=== PATIENT | female | born 1950 | race Caucasian/White ===

== ENCOUNTER 2020-05-09 09:27 | Outpatient (REF) | payer MEDICAID, SELFPAY ==
--- NOTE | 2020-05-09 | US_ITS ---
EXAMINATION: ABDOMINAL ULTRASOUND COMPLETE CLINICAL INFORMATION: Right upper quadrant pain. COMPARISON: None TECHNIQUE: Real-time imaging of the abdominal viscera. FINDINGS: PANCREAS: Essentially obscured by bowel gas. Portion of the neck is visualized, appearing unremarkable. ABDOMINAL AORTA: The proximal, middle, and distal aortic segments are normal in caliber. INFERIOR VENA CAVA: Visualized portions are normal. LIVER: Diffuse increased hepatic echogenicity. No focal lesion or intrahepatic biliary duct dilatation. GALLBLADDER: Status post cholecystectomy. COMMON BILE DUCT: Normal in caliber measuring 0.5 cm in diameter. RIGHT KIDNEY: Technologist notes indicate kidney was difficult to visualize. There is question of prominence of the renal pyramids. No renal lesion or calculi seen. No hydronephrosis. The kidney measures 9.2 cm in maximum dimension. LEFT KIDNEY: Normal. No hydronephrosis. No renal calculi or focal parenchymal lesions. The kidney measures 10.3 cm in maximum dimension. SPLEEN: Normal. The spleen measures 8.4 cm in maximum dimension. FREE FLUID: None. IMPRESSION: 1. Status post cholecystectomy. No evidence of biliary duct dilatation. 2. There is generalized increase in hepatic echotexture, consistent with fatty infiltration or hepatocellular disease. Please correlate clinically. No focal hepatic mass or intrahepatic biliary duct dilatation is seen. 3. Pancreas obscured by bowel gas. 4. Limited visualization of the right kidney. Question of right renal pyramid prominence. Suggest follow-up ultrasound for reassessment.
== END 2020-05-09 09:28 | disposition home or self-care (01) ==
LOC: HO.US 09:27
PROVIDERS: PCP Internal Medicine; Visit Provider Internal Medicine
DX: R10.11 Right upper quadrant pain (principal)
CPT/HCPCS: 76700

== ENCOUNTER 2020-06-01 16:23 | Outpatient (REF) | payer MEDICAID, SELFPAY ==
--- NOTE | 2020-06-01 16:28 | US_ITS ---
EXAMINATION: US RETROPERITONEAL LIMITED (RENAL ONLY) CLINICAL INFORMATION: Abnormal findings on diagnostic imaging of other abdominal regions including retroperitoneum. COMPARISON: Ultrasound abdomen complete 05/09/2020. TECHNIQUE: Real-time imaging of the kidneys. FINDINGS: RIGHT KIDNEY: 10.0 x 5.2 x 5.0 cm (SAG x AP x TRV). The kidney is normal in size, contour, and echogenicity. Renal cortical thickness is normal. No calculi or focal parenchymal lesions. No hydronephrosis. There are prominent pyramids noted. LEFT KIDNEY: 10.6 x 5.5 x 5.0 cm (SAG x AP x TRV). The kidney is normal in size, contour, and echogenicity. Renal cortical thickness is normal. No calculi or focal parenchymal lesions. No hydronephrosis. There are prominent pyramids noted. US/US renal BI IMPRESSION: There are bilateral renal prominent pyramids. No echogenic stones, cyst or hydronephrosis seen.
== END 2020-06-01 16:24 | disposition home or self-care (01) ==
LOC: HO.US 16:23
PROVIDERS: Visit Provider Internal Medicine
DX: R93.5 Abnormal findings on diagnostic imaging of other abdominal regions, including retroperitoneum (principal)
CPT/HCPCS: 76775

== ENCOUNTER 2020-06-30 13:18 | Outpatient (REF) | payer MEDICAID, SELFPAY | END 2020-06-30 13:19 | disposition home or self-care (01) | LOC: HO.HAP 13:18 | PROVIDERS: PCP Internal Medicine; Referring Provider Internal Medicine; Visit Provider Internal Medicine | DX: Z46.1 Encounter for fitting and adjustment of hearing aid (principal) | CPT/HCPCS: V5266 ==

== ENCOUNTER 2020-09-01 10:41 | Outpatient (REF) | payer MEDICAID, SELFPAY ==
--- NOTE | 2020-09-01 11:49 | MHC.AU.P13 ---
Adult Audiological Evaluation Date of Visit: 09/01/20 Rock Contractor Used: Family member assisted with interpretation Reason for Appointment: History of hearing loss. She arrives today to determine if there has been a change in hearing. Previous Hearing Test Results: At [facility] on 03/08/2019- Overall severe sensorineural hearing loss bilaterally Ear History: Recent Ear Pain: None Reported Recent Ear Infections: None Reported Bothersome Tinnitus/Ringing/Noises in Ears: Both Ears History of occupational noise exposure?: No History: No Hearing Instrument History- Right Ear: Consular Officer: BlackArrow Model: [id number] Serial Number: [id number] Battery Size: 312 Repair Warranty: 06/14/2022 Loss and Damage Warranty: 06/14/2022 Dispensed By: [facility] Date of Fittin03/19/2019 Hearing Instrument History- Left Ear: Consular Officer: BlackArrow Model: [id number] [id number] Serial Number: [id number] Battery Size: 312 Warranty: 06/14/2022 Loss and Damage Warranty: 06/24/2022 Dispensed By: [facility] Date of Fittin03/19/2019 Otoscopy: Right Ear: Unremarkable Left Ear: Unremarkable Tympanometry: Tympanometry performed due to: To assess integrity of the middle ear system Right Ear: Normal Middle Ear System (Type A) Left Ear: Normal Middle Ear System (Type A) Hearing Evaluation: Transducer(s) Used: Insert Earphones Method: Conventional Audiometry Stimuli Used: Pure Tones Right Ear: Description of Hearing: Severe sensorineural hearing loss Left Ear: Description of Hearing: Severe sensorineural hearing loss Speech Recognition Threshold (SRT): Method Used: Recorded Lists Stimuli Used: Right Ear: 85 dBHL Left Ear: 85 dBHL Word Discrimination: Method: Recorded Lists Word Lists Used: Lista Bisil?bica (Martiniquais) Right Ear: 52% at 100 dBHL Left Ear: 40% at 100 dBHL Comparison: Compared to most recent evaluation: Slight decrease in low frequencies Recommendations: Audiological re-evaluation in one year. Hearing aid maintenance was performed. Patient reported the volume control buttons were not changing the volume on the other ear like they usually do. The software confirmed the volume control is set so both instruments should be going up and down together. Patient also requested help with her phone, as she tried to pair them herself and it did not seem to be working correctly. In the Bluetooth menu, the left hearing aid was showing as paired in two places, and the right side once. Deleted all three pairings and re-paired the right hearing aid. Deleted pairings from the sapna and re-paired. In the sapna, patient was able to change the volume of both instruments simultaneously. She tried the button on the hearing aids after, and the volume control was now working on both instruments. It is possible the erroneous Bluetooth pairings were interfering with the instruments' abilities to communicate with each other, as typically only the right hearing aid is paired to the phone. Hearing aids were updated with today's test results. Patient felt it was too loud- lowered overall gain by 3 steps. Hearing aid follow-up as needed. Diagnosis: Primary Diagnosis: H90.3 Bilateral Sensorineural Hearing Loss Services Performed: Comprehensive Audiological Evaluation (CPT 33423), Tympanometry (CPT 32545) Signature: Provider: Valeria Flores, CCC-A
== END 2020-09-01 10:42 | disposition home or self-care (01) ==
LOC: HO.SH 10:41
PROVIDERS: Visit Provider Internal Medicine
DX: H90.3 Sensorineural hearing loss, bilateral (principal)
CPT/HCPCS: 92557; 92567

== ENCOUNTER 2020-09-18 08:20 | Outpatient (REF) | payer MEDICAID, SELFPAY ==
--- NOTE | ~2020-09-18 | US_ITS ---
EXAMINATION: US ABDOMEN COMPLETE CLINICAL INFORMATION: Abnormal findings on diagnostic imaging of other abdominal regions, including retroperitoneum. Fatty liver. Abdominal pain. COMPARISON: Bilateral renal ultrasound dated 06/01/2020. Ultrasound abdomen complete dated 05/09/2020. TECHNIQUE: Real-time imaging of the abdominal viscera. FINDINGS: PANCREAS: Head and body the pancreas are normal. The tail is not well visualized due to bowel gas. ABDOMINAL AORTA: The proximal, mid, and distal segments are normal in caliber. INFERIOR VENA CAVA: Visualized portions are normal. LIVER: Liver echotexture is increased. The liver is normal in size. The liver contour is normal. No focal hepatic lesion. There is no intrahepatic biliary duct dilatation seen. GALLBLADDER: Surgically absent. COMMON BILE DUCT: Normal in caliber measuring 0.6 cm in diameter. RIGHT KIDNEY: Normal. No hydronephrosis. No renal calculi or focal parenchymal lesions. The kidney measures 10.2 cm in maximum dimension. LEFT KIDNEY: Normal. No hydronephrosis. No renal calculi or focal parenchymal lesions. The kidney measures 10.4 cm in maximum dimension. SPLEEN: Normal. The spleen measures 8.8 cm in maximum dimension. FREE FLUID: None. US/US abdomen complete IMPRESSION: Echogenic liver probably representing fatty infiltration. Limited visualization of the pancreas.
[2020-09-18 11:59] LABS: Alanine Aminotransferase 15 U/L (0-31); Albumin Level 4.3 g/dL (3.5-5.0); Alkaline Phosphatase 92 U/L (39-117); Aspartate Amino Transferase 18 U/L (5-31); Bilirubin Direct 0.3 mg/dL (0.0-0.5); Bilirubin Total 0.8 mg/dL (0.0-1.0); Total Protein 7.3 g/dL (6.5-8.0)
[2020-09-18 12:00] LABS: TSH reflex Free T4 3.98 uIU/mL (0.32-4.0)
== END 2020-09-18 08:21 | disposition home or self-care (01) ==
LOC: HO.US 08:20
PROVIDERS: PCP Internal Medicine; Visit Provider Internal Medicine
DX: R10.9 Unspecified abdominal pain (principal); R10.13 Epigastric pain; R93.5 Abnormal findings on diagnostic imaging of other abdominal regions, including retroperitoneum; E03.9 Hypothyroidism, unspecified; K76.0 Fatty (change of) liver, not elsewhere classified
CPT/HCPCS: 36415; 76700; 80076; 84443

== ENCOUNTER 2020-09-29 14:28 | Outpatient (REF) | payer MEDICAID, SELFPAY | END 2020-09-29 14:29 | disposition home or self-care (01) | LOC: HO.HAP 14:28 | PROVIDERS: Visit Provider Internal Medicine | DX: Z46.1 Encounter for fitting and adjustment of hearing aid (principal) | CPT/HCPCS: V5266 ==

== ENCOUNTER 2020-11-06 13:24 | Outpatient (REF) | payer MEDICAID, SELFPAY ==
--- NOTE | ~2020-11-06 | MM_ITS ---
EXAMINATION: MM SCREENING DIGITAL BREAST TOMOSYNTHESIS, BILATERAL CLINICAL INFORMATION: Screening. Asymptomatic. No known family history breast cancer. The lifetime risk of breast cancer based on the Tyrer-Cuzick Model is 3%. COMPARISON: Mammography: 12/04/2018 (new baseline). TECHNIQUE: Digital breast tomosynthesis is performed in both the craniocaudal and mediolateral oblique views along with computer-aided detection (CAD). Synthesized 2D images are generated from the tomosynthesis. FINDINGS: There are scattered areas of fibroglandular density (ACR BI-RADS breast composition Category b). There are no significant masses, abnormal calcifications, or other abnormalities. The skin contours are smooth. No significant changes. MM/MM tomosynthesis screening BI IMPRESSION: No mammographic evidence of malignancy. ASSESSMENT: BI-RADS 1: Negative RECOMMENDATION: Routine annual mammography screening. This patient's information was entered into a reminder system with a target due date for their next mammogram.
== END 2020-11-06 13:25 | disposition home or self-care (01) ==
LOC: HO.MAMMO 13:24
PROVIDERS: PCP Internal Medicine; Visit Provider Internal Medicine
DX: Z12.31 Encounter for screening mammogram for malignant neoplasm of breast (principal)
CPT/HCPCS: 77063; 77067

== ENCOUNTER 2021-01-09 09:41 | Outpatient (REF) | payer MEDICAID, SELFPAY | END 2021-01-09 09:42 | disposition home or self-care (01) | LOC: HO.HAP 09:41 | PROVIDERS: Visit Provider Internal Medicine | DX: Z46.1 Encounter for fitting and adjustment of hearing aid (principal); H91.90 Unspecified hearing loss, unspecified ear | CPT/HCPCS: V5266 ==

== ENCOUNTER 2021-02-14 15:55 | Outpatient (REF) | payer MEDICAID, SELFPAY | END 2021-02-14 15:56 | disposition home or self-care (01) | LOC: HO.HAP 15:55 | PROVIDERS: Visit Provider Internal Medicine | DX: Z46.1 Encounter for fitting and adjustment of hearing aid (principal); H90.3 Sensorineural hearing loss, bilateral | CPT/HCPCS: 92593 ==

== ENCOUNTER 2021-03-03 07:26 | Outpatient (REF) | payer MEDICAID, SELFPAY ==
[2021-03-03 12:07] LABS: Alanine Aminotransferase 13 U/L (0-31); Albumin Level 4.1 g/dL (3.5-5.0); Alkaline Phosphatase 98 U/L (39-117); Anion Gap 13 (12-20); Aspartate Amino Transferase 19 U/L (5-31); Bilirubin Total 0.8 mg/dL (0.0-1.0); Blood Urea Nitrogen 12 mg/dL (9-16); Calcium 9.5 mg/dL (8.4-10.2); Carbon Dioxide 26 mmol/L (22-29); Chloride 107 mmol/L (96-108); Cholesterol 188 mg/dL; Estimated Glomerular Filt Rate > 60; Glucose Fasting 85 mg/dL (60-99); HDL Cholesterol 44 mg/dL; LDL Cholesterol Calculated 108 mg/dl; Magnesium 2.3 mg/dL (1.6-2.6); Potassium 4.5 mmol/L (3.3-5.1); Sodium 141 mmol/L (135-145); Total Protein 7.2 g/dL (6.5-8.0); Triglycerides 181 mg/dL
[2021-03-03 12:28] LABS: TSH reflex Free T4 4.63 uIU/mL (0.32-4.0)
[2021-03-03 13:24] LABS: Free T4 (Free Thyroxine) 0.92 ng/dL (0.71-1.85)
== END 2021-03-03 07:27 | disposition home or self-care (01) ==
LOC: HO.HMGCLDS 07:26
PROVIDERS: PCP Internal Medicine; Visit Provider Internal Medicine
DX: R10.13 Epigastric pain (principal); K76.0 Fatty (change of) liver, not elsewhere classified; E66.09 Other obesity due to excess calories; E03.9 Hypothyroidism, unspecified
CPT/HCPCS: 36415; 80053; 80061; 83735; 84439; 84443

== ENCOUNTER 2021-04-13 15:15 | Outpatient (REF) | payer MEDICAID, SELFPAY | END 2021-04-13 15:16 | disposition home or self-care (01) | LOC: HO.HAP 15:15 | PROVIDERS: Visit Provider Internal Medicine | DX: Z46.1 Encounter for fitting and adjustment of hearing aid (principal); H90.3 Sensorineural hearing loss, bilateral | CPT/HCPCS: V5266 ==

== ENCOUNTER → 2021-05-18 13:42 | Outpatient (REF) | payer MEDICAID, SELFPAY ==
--- NOTE | 2021-05-18 13:47 | ECG_ITS ---
Hook-up date: 2021-05-18 13:56:00 Duration: 47:59:00 Test Indications: PVC'S, CHEST PAIN Medications: [id number] QRS complexes 1757 Ventricular ectopics which represent <1 % of total QRS comp. 124 Supraventricular ectopics which represent <1 % of total QRS comp. * Paced QRS complexs which represent % of total QRS comp. VENTRICULAR ECTOPY 1757 Isolated 140 Bigeminal Cycles 0 Couplets 0 Runs 0 Beats in Runs * Beats LONGEST at * BPM at :: -- * Beats FASTEST at * BPM at :: -- SUPRAVENTRICULAR ECTOPY 104 Isolated 3 Couplets 2 Runs 14 Beats in Runs 9 Beats LONGEST at 132 BPM at 16:45:24 2021-05-19 9 Beats FASTEST at 132 BPM at 16:45:24 2021-05-19 HEART RATES 46 MIN at 05:44:08 2021-05-19 68 AVG 105 MAX at 16:16:01 2021-05-18 LONGEST RR 2.6080 secs at 05:44:03 2021-05-19 S-T LEVELS Channel 1 - 128 mm at 13:56:00 2021-05-18 - 128 mm at 13:56:00 2021-05-18 Channel 2 - 128 mm at 13:56:00 2021-05-18 - 128 mm at 13:56:00 2021-05-18 Channel 3 - 128 mm at 03:31:51 -- - 128 mm at 03:31:51 Basic rhythm Normal sinus rhythm No long pause or profound bradycardia Occasional Premature ventricular complexes , total burden < 1% Rare Premature atrial complexes Patient did not report any symptoms in the diary Referred By: Torsten Garza Overread By: AKHIL HUNTER MD
== END ==
LOC: HO.CARD 13:42
PROVIDERS: Visit Provider Internal Medicine
DX: I49.3 Ventricular premature depolarization (principal); R07.89 Other chest pain
CPT/HCPCS: 93226

== ENCOUNTER → 2021-06-12 15:16 | Outpatient (REF) | payer MEDICAID, SELFPAY ==
--- NOTE | 2021-06-12 15:19 | CA_ITS ---
Transthoracic Echocardiogram Patient (Last, First, Middle): Jocelyn Champion Del S Gender: Female Date of : 1950 Age: 70 Procedure Date: 06/12/2021 Procedure Type: Transthoracic Echocardiogram Location: OP Height: 157.48 cm Weight: 76.66 kg BSA: 1.78 m2 Heart Rate: bpm BP: 120 / 78 mmHg Data Systems Analyst: EVETTE Referring MD: Torsten Garza MD Symptoms: R07.89 - Other chest pain Study Quality: Fair ECG Rhythm: Sinus Conclusions: - The left ventricular systolic function is normal. The visually estimated ejection fraction is between 60-65%. - No obvious valvular pathology seen on this study. Findings Left Ventricle Normal left ventricular cavity size. There is normal left ventricular wall thickness. The left ventricular systolic function is normal. The visually estimated ejection fraction is between 60-65%. There is no evidence of regional wall motion abnormalities. Diastolic function is normal for age. Right Ventricle Normal right ventricular cavity size and systolic function. Atria Both atria are normal in size. Aortic Valve The aortic valve was not well visualized. The aortic valve structure and function is likely normal. There is no aortic valve stenosis. There is no aortic valve regurgitation. Mitral Valve The mitral valve appears normal. There is trace mitral valve regurgitation. There is no mitral valve stenosis. Pulmonic Valve The pulmonic valve was not well visualized. Tricuspid Valve Normal tricuspid valve structure. There is trace tricuspid valve regurgitation. The pulmonary artery systolic pressure is normal. Great Vessels The aortic annulus is normal in size. Venous The inferior vena cava is normal in size and collapses greater than 50% with inspiration. Pericardium/Pleural There is no evidence of pericardial effusion. Prior Study Comparison No prior study available for comparison. Recommendations, Care & Conclusions No obvious valvular pathology seen on this study. Measurements 2D Linear Measurements IVSd: 0.97 0.6-0.9/0.6-1.0 cm LVIDd: 4.22 3.9-5.3/4.2-5.9 cm LVIDd Index: 2.37 2.4-3.2/2.2-3.1 cm/m2 LVIDs: 3.01 2.0-3.6 cm LVPWd: 0.92 0.7-1.1 cm Ao Root: 2.80 2.1-3.5 cm LA Diam: 3.30 2.7-3.8/3.0-4.0 cm LAIDs Index: 1.85 1.5-2.3 cm/m2 LV Mass: 159.30 67-162/88-224 g LV Mass Index: 89.49 43-95/49-115 g/m2 LVOT Diam: 1.90 3.0+(-)1.3 cm 2D Systolic Function EF 4C: 73.10 >55% Mitral Valve MV Pk E: 0.71 MV PK A: 0.47 MV Decel Time: 136.00 E/A: 1.50 E'Lateral: 6.96 E'Medial: 4.68 E/E' Med: 15.20 E/E' Lat: 10.20 PHT: 40.00 MVA PHT: 5.50 Decel [place]: 5.22 Aortic Valve AoV Pk Sadiq: 1.05 AoV Pk Grad: 4.00 LVOT LVOT Pk Sadiq: 1.10 LVOT Mn Sadiq: 0.70 LVOT VTI: 0.23 LVOT Pk Grad: 5.00 LVOT Mn Grad: 2.00 LVOT Diam: 1.90 LVOT Area: 2.84 Diastolic Function MV Pk E: 0.71 MV Pk A: 0.47 E/A: 1.50 E'Medial: 4.68 E/E' Med: 15.20 E' Laterial: 6.96 E/E' Lat: 10.20 Right Ventricle TAPSE (mm): 2.19 Tricuspid Valve TR Pk Sadiq: 2.23 TR Pk Grad: 20.00 RA Press: 3.00 RVSP: 23.00 Great Vessels Aorta Ao Root-2D: 2.80 2.0-3.7 cm Ao Arch: 2.80 Updated in Other Vendor System with Status of Final Ravin Sanz MD electronically signed on 06/12/2021 4:33:38 PM with status of Final
== END ==
LOC: HO.CARD 15:16
PROVIDERS: Visit Provider Internal Medicine
DX: R07.89 Other chest pain (principal); I49.3 Ventricular premature depolarization
CPT/HCPCS: 93306

== ENCOUNTER 2021-07-10 14:01 | Outpatient (REF) | payer MEDICAID, SELFPAY | END 2021-07-10 14:02 | disposition home or self-care (01) | LOC: HO.HAP 14:01 | PROVIDERS: Visit Provider Internal Medicine | DX: Z46.1 Encounter for fitting and adjustment of hearing aid (principal); H90.3 Sensorineural hearing loss, bilateral | CPT/HCPCS: V5266 ==

== ENCOUNTER → 2021-09-04 11:08 | Outpatient (BNVA) | payer MEDICAID, SELFPAY | PROVIDERS: PCP Internal Medicine; Referring Provider Internal Medicine; Visit Provider Nurse Practitioner | DX: K21.9 Gastro-esophageal reflux disease without esophagitis (principal) | CPT/HCPCS: 99212 ==

== ENCOUNTER 2021-10-12 09:14 | Outpatient (REF) | payer MEDICAID, SELFPAY | END 2021-10-12 09:15 | disposition home or self-care (01) | LOC: HO.HAP 09:14 | PROVIDERS: Visit Provider Internal Medicine | DX: Z46.1 Encounter for fitting and adjustment of hearing aid (principal); H90.3 Sensorineural hearing loss, bilateral | CPT/HCPCS: 92593 ==

== ENCOUNTER → 2021-10-16 15:10 | Outpatient (BNVA) | payer MEDICAID, SELFPAY | PROVIDERS: PCP Internal Medicine; Referring Provider Internal Medicine; Visit Provider Nurse Practitioner | DX: K21.9 Gastro-esophageal reflux disease without esophagitis (principal); Z79.899 Other long term (current) drug therapy | CPT/HCPCS: 99212 ==

== ENCOUNTER 2021-10-20 07:37 | Outpatient (REF) | payer MEDICAID, SELFPAY ==
[2021-10-20 11:10] LABS: MANUAL DIFF FLAG NO
[2021-10-20 11:21] LABS: Basophils Absolute Auto 0.1 X10*3/uL (0.0-0.2); Basophils Percent Auto 0.6 % (0-2); Eosinophils Absolute Auto 0.1 X10*3/uL (0.0-0.4); Eosinophils Percent Auto 0.9 % (0-4); Hematocrit 41.8 % (37.0-47.0); Hemoglobin 13.2 g/dl (12.0-16.0); Imm Gran Abs Auto 0.03 X10*3/uL (0.00-0.03); Imm Gran Pct Auto 0.4 % (0.0-0.4); Lymphocytes Absolute Auto 2.1 X10*3/uL (1.2-4.9); Lymphocytes Percent Auto 26.7 % (20-40); Mean Corpuscular HGB Conc 31.6 g/dl (31.0-35.0); Mean Corpuscular Hemoglobin 29.7 pg (27.0-33.0); Mean Corpuscular Volume 93.9 fL (80.0-98.0); Mean Platelet Volume 11.3 fL (9.4-12.3); Monocytes Absolute Auto 0.4 X10*3/uL (0.1-1.2); Monocytes Percent Auto 5.6 % (2-11); Neutrophils Absolute Auto 5.1 x10*3/uL (2.0-8.3); Neutrophils Percent Auto 65.8 % (45-73); Platelet Count 259 X10*3/uL (160-400); Red Blood Count 4.45 X10*6/uL (4.20-5.50); Red Cell Distribution Width 12.8 % (11.0-16.0); White Blood Count 7.8 X10*3/uL (4.8-10.8)
[2021-10-20 11:45] LABS: Alanine Aminotransferase 14 U/L (0-31); Albumin Level 4.1 g/dL (3.5-5.0); Alkaline Phosphatase 107 U/L (39-117); Anion Gap 12 (12-20); Aspartate Amino Transferase 17 U/L (5-31); Bilirubin Total 0.8 mg/dL (0.0-1.0); Blood Urea Nitrogen 14 mg/dL (9-16); Calcium 9.4 mg/dL (8.4-10.2); Carbon Dioxide 27 mmol/L (22-29); Chloride 106 mmol/L (96-108); Cholesterol 194 mg/dL; Estimated Glomerular Filt Rate > 60; Glucose Fasting 91 mg/dL (60-99); HDL Cholesterol 49 mg/dL; LDL Cholesterol Calculated 122 mg/dl; Potassium 4.3 mmol/L (3.3-5.1); Sodium 141 mmol/L (135-145); Total Protein 7.1 g/dL (6.5-8.0); Triglycerides 118 mg/dL
[2021-10-20 11:55] LABS: TSH reflex Free T4 4.13 uIU/mL (0.32-4.0)
[2021-10-20 13:18] LABS: Free T4 (Free Thyroxine) 1.04 ng/dL (0.71-1.85)
== END 2021-10-20 07:38 | disposition home or self-care (01) ==
LOC: HO.HMGCLDS 07:37
PROVIDERS: PCP Internal Medicine; Visit Provider Internal Medicine
DX: Z00.01 Encounter for general adult medical examination with abnormal findings (principal); E03.9 Hypothyroidism, unspecified; R10.13 Epigastric pain; K76.0 Fatty (change of) liver, not elsewhere classified
CPT/HCPCS: 36415; 80053; 80061; 84439; 84443; 85025

== ENCOUNTER 2021-10-31 15:19 | Outpatient (REF) | payer MEDICAID, SELFPAY | END 2021-10-31 15:20 | disposition home or self-care (01) | LOC: HO.HAP 15:19 | PROVIDERS: Visit Provider Internal Medicine | DX: Z46.1 Encounter for fitting and adjustment of hearing aid (principal); H90.3 Sensorineural hearing loss, bilateral | CPT/HCPCS: 92593 ==

== ENCOUNTER 2021-11-09 08:12 | Outpatient (REF) | payer MEDICAID, SELFPAY ==
--- NOTE | ~2021-11-09 | MM_ITS ---
EXAMINATION: MM SCREENING DIGITAL BREAST TOMOSYNTHESIS, BILATERAL CLINICAL INFORMATION: Screening. Asymptomatic. The lifetime risk of breast cancer based on the Tyrer-Cuzick Model is 4%. COMPARISON: Mammography: 11/06/2020, 12/04/2018 TECHNIQUE: Digital breast tomosynthesis is performed in both the craniocaudal and mediolateral oblique views along with computer-aided detection (CAD). Synthesized 2D images are generated from the tomosynthesis. Additional left MLO view is provided. FINDINGS: There are scattered areas of fibroglandular density (ACR BI-RADS breast composition Category b). There are no significant masses, abnormal calcifications, or other abnormalities. Parenchymal pattern is similar to prior studies. The axilla and skin contours are unremarkable. MM/MM tomosynthesis screening BI IMPRESSION: No mammographic evidence of malignancy. ASSESSMENT: BI-RADS 1: Negative RECOMMENDATION: Routine annual mammography screening. This patient's information was entered into a reminder system with a target due date for their next mammogram.
== END 2021-11-09 08:13 | disposition home or self-care (01) ==
LOC: HO.MAMMO 08:12
PROVIDERS: PCP Internal Medicine; Visit Provider Internal Medicine
DX: Z12.31 Encounter for screening mammogram for malignant neoplasm of breast (principal)
CPT/HCPCS: 77063; 77067

== ENCOUNTER 2022-01-14 10:17 | Outpatient (REF) | payer MEDICAID, SELFPAY | END 2022-01-14 10:18 | disposition home or self-care (01) | LOC: HO.HAP 10:17 | PROVIDERS: Visit Provider Internal Medicine | DX: Z46.1 Encounter for fitting and adjustment of hearing aid (principal); H90.3 Sensorineural hearing loss, bilateral | CPT/HCPCS: V5266 ==

== ENCOUNTER 2022-04-16 14:57 | Outpatient (REF) | payer MEDICAID, SELFPAY | END 2022-04-16 14:58 | disposition home or self-care (01) | LOC: HO.HAP 14:57 | PROVIDERS: Visit Provider Internal Medicine | DX: Z46.1 Encounter for fitting and adjustment of hearing aid (principal); H90.3 Sensorineural hearing loss, bilateral | CPT/HCPCS: V5266 ==

== ENCOUNTER → 2022-04-18 14:38 | Outpatient (BNVA) | payer MEDICAID, SELFPAY | PROVIDERS: PCP Internal Medicine; Visit Provider Nurse Practitioner | DX: K21.9 Gastro-esophageal reflux disease without esophagitis (principal) | CPT/HCPCS: 99212 ==

== ENCOUNTER 2022-06-07 13:50 | Outpatient (REF) | payer MEDICAID, SELFPAY | END 2022-06-07 13:51 | disposition home or self-care (01) | LOC: HO.HAP 13:50 | PROVIDERS: Visit Provider Internal Medicine | DX: Z13.89 Encounter for screening for other disorder (principal) ==

== ENCOUNTER 2022-07-19 15:05 | Outpatient (REF) | payer MEDICAID, SELFPAY | END 2022-07-19 15:06 | disposition home or self-care (01) | LOC: HO.HAP 15:05 | PROVIDERS: Visit Provider Internal Medicine | DX: Z46.1 Encounter for fitting and adjustment of hearing aid (principal); H90.3 Sensorineural hearing loss, bilateral | CPT/HCPCS: V5266 ==

== ENCOUNTER 2022-10-17 11:03 | Outpatient (REF) | payer MEDICAID, SELFPAY | END 2022-10-17 11:04 | disposition home or self-care (01) | LOC: HO.HAP 11:03 | PROVIDERS: Visit Provider Internal Medicine | DX: Z46.1 Encounter for fitting and adjustment of hearing aid (principal); H90.3 Sensorineural hearing loss, bilateral | CPT/HCPCS: V5266 ==

== ENCOUNTER 2022-10-25 14:57 | Outpatient (REF) | payer MEDICAID, SELFPAY ==
--- NOTE | ~2022-10-25 | XR_ITS ---
EXAMINATION: XR LUMBOSACRAL SPINE CLINICAL INFORMATION: Radiculopathy. COMPARISON: None available. TECHNIQUE: Three views of the lumbosacral spine. 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 There is normal lumbar lordosis with minimal scoliosis. The vertebral heights and alignment are normal. Loss of disc space at L6-S1, L5-L6 and L1-L2 disc heights. There is mild ventral spondylosis L1-L2, L4-L5 and L5-L6 vertebral heights. No aggressive lytic or sclerotic process seen. There is a moderate bridging osteophyte at the L5-L6 disc level. The SI joints are symmetrical and normal. The soft tissues are normal. 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 Degenerative disc heights as described above with ventral spondylosis. There is minimal scoliosis but no acute fracture or dislocation seen.
[2022-10-25 17:18] LABS: TSH reflex Free T4 3.51 uIU/mL (0.32-4.0)
== END 2022-10-25 14:58 | disposition home or self-care (01) ==
LOC: HO.HMGCX 14:57
PROVIDERS: PCP Internal Medicine; Visit Provider Internal Medicine
DX: Z00.01 Encounter for general adult medical examination with abnormal findings (principal); E03.9 Hypothyroidism, unspecified; M54.16 Radiculopathy, lumbar region
CPT/HCPCS: 36415; 72100; 84443

== ENCOUNTER 2022-11-12 15:48 | Outpatient (REF) | payer MEDICAID, SELFPAY | END 2022-11-12 15:49 | disposition home or self-care (01) | LOC: HO.HAP 15:48 | PROVIDERS: Visit Provider Internal Medicine | DX: Z13.89 Encounter for screening for other disorder (principal) ==

== ENCOUNTER 2022-11-27 14:37 | Outpatient (REF) | payer MEDICAID, SELFPAY ==
--- NOTE | ~2022-11-27 | MM_ITS ---
EXAMINATION: MM SCREENING DIGITAL BREAST TOMOSYNTHESIS, BILATERAL CLINICAL INFORMATION: Screening. Asymptomatic. The lifetime risk of breast cancer based on the Tyrer-Cuzick Model is 2.2%. COMPARISON: Mammography: November 09, 2021 and studies dating back to December 04, 2018 TECHNIQUE: Digital breast tomosynthesis is performed in both the craniocaudal and mediolateral oblique views along with computer-aided detection (CAD). Synthesized 2D images are generated from the tomosynthesis. FINDINGS: There are scattered areas of fibroglandular density (ACR BI-RADS breast composition Category b). There are no significant masses, abnormal calcifications, or other abnormalities. MM/MM tomosynthesis screening BI IMPRESSION: No significant changes from prior exam. ASSESSMENT: BI-RADS 1: Negative RECOMMENDATION: Routine annual mammography screening. This patient's information was entered into a reminder system with a target due date for their next mammogram.
== END 2022-11-27 14:38 | disposition home or self-care (01) ==
LOC: HO.MAMMO 14:37
PROVIDERS: PCP Internal Medicine; Visit Provider Internal Medicine
DX: Z12.31 Encounter for screening mammogram for malignant neoplasm of breast (principal)
CPT/HCPCS: 77063; 77067

== ENCOUNTER 2022-12-13 13:14 | Outpatient (REF) | payer MEDICAID, SELFPAY | END 2022-12-13 13:15 | disposition home or self-care (01) | LOC: HO.HAP 13:14 | PROVIDERS: Visit Provider Internal Medicine | DX: Z46.1 Encounter for fitting and adjustment of hearing aid (principal); H90.3 Sensorineural hearing loss, bilateral | CPT/HCPCS: 92700; V5264 ==

== ENCOUNTER 2023-01-15 17:00 | Outpatient (RCR) | payer MEDICAID, SELFPAY ==
--- NOTE | 2022-12-18 13:40 | MHC.PT.EP ---
[facility] [place] Office [place] Office [place] Office [address] [phone] F: [phone] F: [phone] F: [phone] F: [phone] Physical Therapy Plan of Care Date of Evaluation: Date of Surgery: N/A Diagnosis: radiculopathy, lumbar region Assessment: Pt is a pleasant 72yo F who presents to PT with low back pain. Pt presents to PT with current impairments in pain, decreased lumbar ROM, posterior chain tightness, decreased hip/glute strength and impaired gait. She is TTP with reproduction of symptoms to L glutes and piriformis. She is limited functionally by prolonged standing, prolonged walking, and sleeping. She is a good candidate for skilled PT in order to address current impairments to facilitate return to PLOF. She is recommended to be seen 2x/week however pt and her son report 1x/week is better therefore she will be seen 1x/week for 4 weeks and will be reassessed at that time. Frequency and Duration: The patient will be seen 2x/week for 4 weeks Short Term Goals: Pt will be I with HEP to promote self management of symptoms Pt will improve L hamstring length to WFL compared to R Detention Goals: Pt will improve L glute med strength to at least 4+/5 to assist with standing and walking Pt will tolerate standing and walking > 30 min with minimal to no discomfort Treatment Plan: Modalities to reduce pain, spasms and effusion. Manual therapy to restore motion and function. Therapeutic exercise to improve strength and flexibility. Neuromuscular re-education for posture and balance. Therapeutic activities to return to functional activities of daily living. Electronically signed by: Swapna Renee, PT, DPT Please sign and return to therapist. Thank you for your referral.
--- NOTE | 2023-02-13 15:36 | MHC.PT.DC ---
[facility] [place] Office [place] Office [place] Office [address] Jailyn Parham [address] [phone] F: [phone] F: [phone] F: [phone] F: [phone] Physical Therapy Discharge Report Diagnosis: radiculopathy, lumbar region Date of Surgery: N/A Date of Evaluation: 12/17/22 Date of Discharge: 02/13/23 Treatments to Date: 3 Cancellations to Date: No Shows to Date: Discharge Status: Patient Elected to Stop Discharge Summary: Pt was seen for PT from 12/17/22-01/15/23. Her last attended appointment was 01/15/23. At last attended appointment she reported she is leaving for a month, and therefore she will be D/C from PT. She was provided with a HEP at her last attended appointment. Pt is being D/C from skilled PT at this time. Electronically signed by: Swapna Renee, PT, DPT Please sign and return to therapist. Thank you for your referral.
== END 2023-02-13 15:36 | disposition home or self-care (01) ==
LOC: HO.PT 17:00
PROVIDERS: PCP Internal Medicine; Visit Provider Internal Medicine
DX: M54.16 Radiculopathy, lumbar region (principal)
CPT/HCPCS: 97110; 97161

== ENCOUNTER 2023-01-17 15:56 | Outpatient (REF) | payer MEDICAID, SELFPAY | END 2023-01-17 15:57 | disposition home or self-care (01) | LOC: HO.HAP 15:56 | PROVIDERS: Visit Provider Internal Medicine | DX: Z46.1 Encounter for fitting and adjustment of hearing aid (principal); H90.3 Sensorineural hearing loss, bilateral | CPT/HCPCS: V5266 ==

== ENCOUNTER 2023-04-21 14:45 | Outpatient (REF) | payer MEDICAID, SELFPAY | END 2023-04-21 14:46 | disposition home or self-care (01) | LOC: HO.HAP 14:45 | PROVIDERS: Visit Provider Internal Medicine | DX: Z46.1 Encounter for fitting and adjustment of hearing aid (principal); H90.3 Sensorineural hearing loss, bilateral | CPT/HCPCS: V5266 ==

== ENCOUNTER 2023-07-02 10:26 | Outpatient (AMB) | payer MEDICAID, SELFPAY ==
[2023-07-02 10:29] VITALS: BP 120/72; PULSE 80; O2SAT 97; BMI 30.6
--- NOTE | 2023-07-02 10:29 | MHC.PC.OV ---
Vital Signs 07/02/23 10:29 Height 5 ft 2 in Weight 167 lb 8 oz BMI 30.6 BP 120/72 Blood Pressure Location Rt brachial Position Sitting Pulse 80 Pulse Source Pulse Oximeter Pulse Oximetry (%) 97 Oxygen Delivery Method Room Air Intake Visit Reasons: Discuss mole concerns Allergies No Known Allergies [No Known Allergies*] Allergy (Verified 07/02/23 10:31) Medication List - Last Reconciled 07/02/23 by Torsten Garza MD famotidine (Pepcid) 40 mg PO BEDTIME levothyroxine 25 mcg PO DAILY 90 days omeprazole 20 mg PO DAILY 30 days Tobacco use date assessed: 07/02/23 Fall risk assessment: No Falls in past year Last assessed Fall Risk: 07/02/23 Dental Screening Dental Screen Date: 07/02/23 Did you have a dental visit in the last 12 months?: Yes Did you have a dental problem in the last 6 months where you did not have access to dental care?: No Was dental information given to patient?: Patient has dentist HPI Discuss mole concerns HPI Details Patient is a 72-year-old female who was last seen early this year came in today to talk about changing mole on her face She would like to have a referral to Dermatology which I placed for her Patient is also on thyroid medication for hypothyroidism She is due for labs, patient have appointment for physical exam in October I have ordered fasting lab for the patient we will review the reports when she comes in. She is also having recurrent cold sores for that she is requesting a local cream, currently patient is using her daughter's cream. BMI is elevated at 30.6 patient is trying to lose weight. [facility]LY [facility] Medical History Abnormal abdominal ultrasound Difficulty hearing Dyspepsia Fatty liver Hypothyroidism Surgical History H/O colonoscopy H/O esophagogastroduodenoscopy History of laryngoscopy Hx of cholecystectomy Family History Father Myocardial infarction Mother Emphysema, unspecified Son No problems noted. Daughter No problems noted. Social History Housing: House Patient Tobacco Use Status: Never used Tobacco e-Cigarette/Vaping Use: Never Used Second Hand Smoke Exposure: No service: No Current occupational status: retired Cognitive needs: No Hearing needs: No Vision needs: Yes Questionnaire PHQ-9 Over the last 2 weeks, how often have you been bothered by any of the following problems? 1. Little interest or pleasure in doing things: not at all 2. Feeling down, depressed, or hopeless: not at all 3. Trouble falling or staying asleep, or sleeping too much: not at all 4. Feeling tired or having little energy: not at all 5. Poor appetite or overeating: not at all 6. Feeling bad about yourself - or that you are a failure or have let yourself or your family down: not at all 7. Trouble concentrating on things, such as reading the newspaper or watching television: not at all 8. Moving or speaking so slowly that other people could have noticed. Or the opposite - being so fidgety or restless that you have been moving around a lot more than usual: not at all 9. Thoughts that you would be better off or of hurting yourself in some way: not at all Total score: 0 Depression Screening Interpretation: Negative Depression Screening Done: Yes 08308 - PHQ-9 Billing: Yes Source: Developed by Drs. Alfred Goldberg, Michelle Garcia, Noe Nowak and colleagues, with an educational perfecto from [employer]. Thrive Questionnaire Date Thrive assessed: 07/02/23 I am a: Patient What is your living situation today?: I have a steady place to live Within the past 12 months, did the food you bought not last and you didn't have the money to get more?: Sometimes True Within the past 12 months, did you worry whether your food would run out before you got money to buy more?: Sometimes True Do you have trouble paying for medicines?: No Do you have trouble getting transportation to medical appointments?: No Do you have trouble paying your heating and electricity bill?: Yes Do you have trouble taking care of your child, family member or friend?: No Do you have trouble with day-to-day activities such as bathing, preparing meals, shopping, managing finances, etc.?: No Are you currently unemployed and looking for a job?: No Are you interested in more education?: No Please select the resources that you would like help with: None Currently or been in a relationship where the following occur: no concerns reported KEYSHA-7 AMB Questionnaire KEYSHA-7 Date KEYSHA - 7 assessed: 07/02/23 Feeling nervous, anxious, or on edge: 0 = Not at all Not being able to stop or control worryin = Not at all Worrying too much about different things: 0 = Not at all Trouble relaxin = Not at all Being so restless that it is hard to sit still: 0 = Not at all Becoming easily annoyed or irritable: 0 = Not at all Feeling afraid as if something awful might happen: 0 = Not at all Total KEYSHA-7 score (0-4 normal; 5-9 mild; 10-14 moderate; 15-21 severe): 0 Source: Developed by Drs. Alfred Goldberg, Michelle Garcia, Noe Nowak and colleagues, with an educational perfecto from [employer]. KEYSHA-7 Assessment Billing KEYSHA-7 Assessment Tool: KEYSHA-7 Assessment 47532 Review of Systems Const Denies chills and Denies fever(s) ENT Denies epistaxis and Denies nasal discharge Card Denies chest pain Resp Denies chest congestion, Denies cough and Denies hemoptysis GI Denies diarrhea and Denies nausea Skin/Breast Denies rash Neuro Reports no additional complaints Psych Reports no additional complaints Endo Reports no additional complaints Physical exam (Primary Care) Vital Signs: Last Vital Signs Pulse 80 07/02/23 10:29 BP 120/72 07/02/23 10:29 Pulse Ox 97 07/02/23 10:29 Oxygen Delivery Method Room Air 07/02/23 10:29 BMI result Body Mass Index 30.6 Tobacco/Smoking Status: Tobacco use Status Tobacco use date assessed 07/02/23 07/02/23 10:34 Patient Tobacco Use Status Never used Tobacco 07/02/23 10:31 e-Cigarette/Vaping Use Never Used 07/02/23 10:34 PHQ-9: PHQ-9 Score PHQ-9: Total score 0 07/02/23 10:50 Depression Screening Interpretation: Negative Thrive Assessment: Date of Thrive Assessment Date Thrive assessed 07/02/23 07/02/23 10:56 Currently or been in a relationship where the following occur: no concerns reported Const General: cooperative, comfortable and no acute distress Orientation/consciousness: patient oriented x3 HENOK Head: Yes normocephalic Head images: 1. Dark skin growth Eyes General: appearance normal, both eyes and all related structures Neck Neck: Yes supple Resp Effort & Inspection: normal respiratory effort, no cough and no stridor Cardio Rhythm: regular rhythm Heart sounds: S1 normal heart sound present and S2 normal heart sound present Skin General skin exam: turgor normal Neuro General: patient oriented x3, tone normal and moves all extremities Extrem Right lower extremity: no edema Left lower extremity: no edema Assessment and Plan Assessment & Plan (1) Change in mole: Code(s): D22.9 - Melanocytic nevi, unspecified (2) Obesity due to excess calories: Code(s): E66.09 - Other obesity due to excess calories Qualifiers: Body mass index: BMI 30.0-30.9 Obesity classification: adult class 1 (BMI 30 - 34.9) Serious obesity comorbidity presence: without serious comorbidity Qualified Code(s): E66.09 - Other obesity due to excess calories; Z68.30 - Body mass index [BMI] 30.0-30.9, adult (3) Hypothyroidism: Code(s): E03.9 - Hypothyroidism, unspecified Qualifiers: Hypothyroidism type: unspecified Qualified Code(s): E03.9 - Hypothyroidism, unspecified (4) Fatty liver: Code(s): K76.0 - Fatty (change of) liver, not elsewhere classified (5) Dyspepsia: Code(s): R10.13 - Epigastric pain (6) 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 She is also having recurrent cold sores for that she is requesting a local cream, currently patient is using her daughter's cream. BMI is elevated at 30.6 patient is trying to lose weight. History of fatty liver and dyspepsia managed through Gastroenterology Orders: Orders Comprehensive [place]. Panel Fast Today D22.9 - Melanocytic nevi, unspecified, E03.9 - Hypothyroidism, unspecified, E66.09 - Other obesity due to excess calories, K76.0 - Fatty (change of) liver, not elsewhere classified, R10.13 - Epigastric pain Complete Blood Count Auto Diff Today D22.9 - Melanocytic nevi, unspecified, E03.9 - Hypothyroidism, unspecified, E66.09 - Other obesity due to excess calories, K76.0 - Fatty (change of) liver, not elsewhere classified, R10.13 - Epigastric pain Lipid Panel Today D22.9 - Melanocytic nevi, unspecified, E03.9 - Hypothyroidism, unspecified, E66.09 - Other obesity due to excess calories, K76.0 - Fatty (change of) liver, not elsewhere classified, R10.13 - Epigastric pain TSH reflex Free T4 Today D22.9 - Melanocytic nevi, unspecified, E03.9 - Hypothyroidism, unspecified, E66.09 - Other obesity due to excess calories, K76.0 - Fatty (change of) liver, not elsewhere classified, R10.13 - Epigastric pain Referrals Dermatology Referral Z12.83 - Encounter for screening for malignant neoplasm of skin Medications: New acyclovir 5% 1 appl topical TID PRN 5 grams 2RF Cold sore 30 days Discontinued amitriptyline Discontinued Reason: Patient Completed Course 25 mg PO BEDTIME 30 days 30 tabs 0RF Coding Level of Care Code Est Pt Level 3 (77000) Diagnoses Change in mole D22.9 Class 1 obesity due to excess calories without serious comorbidity with body mass index (BMI) of 30.0 to 30.9 in adult E66.09; Z68.30 Body mass index: BMI 30.0-30.9 Obesity classification: adult class 1 (BMI 30 - 34.9) Serious obesity comorbidity presence: without serious comorbidity Hypothyroidism, unspecified type E03.9 Hypothyroidism type: unspecified Fatty liver K76.0 Dyspepsia R10.13 Recurrent cold sores B00.1 Additional Codes KEYSHA-7 Assessment Billing - KEYSHA-7 Assessment Tool: KEYSHA-7 Assessment 24458 ([id number])
== END 2023-07-02 13:21 | disposition home or self-care (01) ==
LOC: HO.HMGC 10:26
PROVIDERS: PCP Internal Medicine; Visit Provider Internal Medicine
DX: D22.9 Melanocytic nevi, unspecified (principal); E66.09 Other obesity due to excess calories; Z68.30 Body mass index [BMI] 30.0-30.9, adult; E03.9 Hypothyroidism, unspecified; K76.0 Fatty (change of) liver, not elsewhere classified; R10.13 Epigastric pain; B00.1 Herpesviral vesicular dermatitis
CPT/HCPCS: 99213

== ENCOUNTER 2023-07-22 12:48 | Outpatient (REF) | payer MEDICAID, SELFPAY | END 2023-07-22 12:49 | disposition home or self-care (01) | LOC: HO.HAP 12:48 | PROVIDERS: Visit Provider Internal Medicine | DX: Z46.1 Encounter for fitting and adjustment of hearing aid (principal); H90.3 Sensorineural hearing loss, bilateral | CPT/HCPCS: V5266 ==

== ENCOUNTER 2023-10-20 12:17 | Outpatient (REF) | payer MEDICAID, SELFPAY | END 2023-10-20 12:18 | disposition home or self-care (01) | LOC: HO.HAP 12:17 | PROVIDERS: Visit Provider Internal Medicine | DX: Z46.1 Encounter for fitting and adjustment of hearing aid (principal); H90.3 Sensorineural hearing loss, bilateral | CPT/HCPCS: V5266 ==

== ENCOUNTER 2023-11-05 14:09 | Outpatient (AMB) | payer MEDICAID, SELFPAY ==
[2023-11-05 14:18] VITALS: BP 124/70; PULSE 73; O2SAT 96
--- NOTE | 2023-11-05 14:18 | MHC.PC.OV ---
Vital Signs 11/05/23 14:18 Height 5 ft 2 in Weight 164 lb 2 oz BMI 30.0 BP 124/70 Blood Pressure Location Rt brachial Position Sitting Pulse 73 Pulse Source Pulse Oximeter Pulse Oximetry (%) 96 Oxygen Delivery Method Room Air Intake Visit Reasons: PE Allergies No Known Allergies [No Known Allergies*] Allergy (Verified 11/05/23 14:20) Medication List - Last Reconciled 11/05/23 by Torsten Garza MD acyclovir 5% 1 appl topical TID PRN 30 days famotidine (Pepcid) 40 mg PO BEDTIME levothyroxine 25 mcg PO DAILY 90 days omeprazole 20 mg PO DAILY 30 days Tobacco use date assessed: 11/05/23 Fall risk assessment: No Falls in past year Last assessed Fall Risk: 11/05/23 Dental Screening Dental Screen Date: 07/02/23 HPI PE HPI Details Patient is 73-year-old female came in today for her physical exam Colonoscopy is up-to-date Only medication she is taking from PCP office is levothyroxine 25 mcg and is due for TSH level Her daughter is very concerned that patient is snoring very loudly and feel tired during the day she is concerned about sleep apnea I have ordered sleep study for the patient She also is having epigastric pain off and on, patient have chronic GERD and she has stopped taking her omeprazole I have told her to restart the medication I will book her appointment with gastroenterology as well Mammogram is up-to-date BMI is elevated need to lose weight PFSH Medical History Difficulty hearing Abnormal abdominal ultrasound Hypothyroidism Fatty liver Dyspepsia Surgical History H/O colonoscopy H/O esophagogastroduodenoscopy History of laryngoscopy Hx of cholecystectomy Family History Father Myocardial infarction Mother Emphysema, unspecified Son No problems noted. Daughter No problems noted. Social History Housing: House Patient Tobacco Use Status: Never used Tobacco e-Cigarette/Vaping Use: Never Used Second Hand Smoke Exposure: No service: No Current occupational status: retired Cognitive needs: No Hearing needs: No Vision needs: Yes Questionnaire PHQ-9 Over the last 2 weeks, how often have you been bothered by any of the following problems? 25071 - PHQ-9 Billing: Patient declined-do not bill Source: Developed by Drs. Alfred Goldberg, Michelle Garcia, Noe Nowak and colleagues, with an educational perfecto from [employer]. Thrive Questionnaire Date Thrive assessed: 11/05/23 I am a: Parent/Caregiver What is your living situation today?: I choose not to answer this question Within the past 12 months, did the food you bought not last and you didn't have the money to get more?: I choose not to answer this question Within the past 12 months, did you worry whether your food would run out before you got money to buy more?: I choose not to answer this question Do you have trouble paying for medicines?: I choose not to answer this question Do you have trouble getting transportation to medical appointments?: I choose not to answer this question Do you have trouble paying your heating and electricity bill?: I choose not to answer this question Do you have trouble taking care of your child, family member or friend?: I choose not to answer this question Do you have trouble with day-to-day activities such as bathing, preparing meals, shopping, managing finances, etc.?: I choose not to answer this question Are you currently unemployed and looking for a job?: I choose not to answer this question Are you interested in more education?: I choose not to answer this question Please select the resources that you would like help with: None Currently or been in a relationship where the following occur: no concerns reported and I choose not to answer this question THRIVE Score: 0 KEYSHA-7 AMB Questionnaire KEYSHA-7 Date KYESHA - 7 assessed: 11/05/23 Source: Developed by Drs. Alfred Goldberg, Michelle Garcia, Noe Nowak and colleagues, with an educational perfecto from [employer]. KEYSHA-7 Assessment Billing KESYHA-7 Assessment Tool: pt declined-do not bill Review of Systems Const Denies chills, Denies fever(s) and Denies headache(s) Eyes Denies blurry vision ENT Denies headache(s), Denies nasal discharge, Denies nasal obstruction, Denies odynophagia and Denies sinus pain Card Denies chest pain at rest and Denies chest pain with activity Resp Denies cough and Denies hemoptysis GI Denies diarrhea, Denies odynophagia, Denies vomiting and Denies hematemesis Reports as per HPI Musc Denies abnormal gait Skin/Breast Reports as per HPI Neuro Denies Neuro-related abnormal movements, Denies Abnormal speech present, Denies abnormal gait, Denies headache(s) and Denies Sensory deficit (Neuro) Psych Denies mood swings and Denies paranoia Endo Reports as per HPI Chente/Lymph Reports as per HPI Aller/Immun Reports as per HPI Physical exam (Primary Care) Vital Signs: Last Vital Signs Pulse 73 11/05/23 14:18 BP 124/70 11/05/23 14:18 Pulse Ox 96 11/05/23 14:18 Oxygen Delivery Method Room Air 11/05/23 14:18 Tobacco/Smoking Status: Tobacco use Status Tobacco use date assessed 11/05/23 11/05/23 14:21 Patient Tobacco Use Status Never used Tobacco 11/05/23 14:21 e-Cigarette/Vaping Use Never Used 11/05/23 14:21 Thrive Assessment: Date of Thrive Assessment Date Thrive assessed 11/05/23 11/05/23 14:41 Currently or been in a relationship where the following occur: no concerns reported and I choose not to answer this question Const General: cooperative, comfortable and no acute distress Orientation/consciousness: patient oriented x3 HENMT Head: Yes normocephalic and Yes atraumatic Eyes General: appearance normal, both eyes and all related structures Pupils: Equal, round and reactive pupils present EOM: EOMs intact bilaterally Neck Neck: Yes supple and No lymphadenopathy Thyroid: Thyroid normal Lymphatic: no lymphadenopathy noted Chest Breast/axilla palpation: normal palpation of the breasts Resp Effort & Inspection: normal respiratory effort and able to speak in complete sentences Auscultation: clear to auscultation bilaterally Cardio Heart sounds: S1 normal heart sound present and S2 normal heart sound present GI Palpation (GI): Soft to palpation Auscultation: normal bowel sounds Abdomen image: 1. Discomfort with deep palpation General: Yes no CVA tenderness Back/Spine/Pelvis Back: no CVA tenderness Skin General skin exam: elasticity normal and turgor normal Neuro General: patient oriented x3 and gait normal Cranial nerves: Yes Equal, round and reactive pupils present Speech: No Abnormal speech present Sensory Exam: No Sensory deficit (Neuro) Coordination: tandem gait normal and Romberg test negative Extrem General: Yes normal exam except as noted and No edema Assessment and Plan Assessment & Plan (1) Encounter for general adult medical examination with abnormal findings: Code(s): Z00.01 - Encounter for general adult medical examination with abnormal findings (2) Dyspepsia: Code(s): R10.13 - Epigastric pain (3) Epigastric abdominal pain: Code(s): R10.13 - Epigastric pain (4) Fatty liver: Code(s): K76.0 - Fatty (change of) liver, not elsewhere classified (5) Hypothyroidism: Code(s): E03.9 - Hypothyroidism, unspecified Qualifiers: Hypothyroidism type: unspecified Qualified Code(s): E03.9 - Hypothyroidism, unspecified (6) Chronic GERD: Code(s): K21.9 - Gastro-esophageal reflux disease without esophagitis (7) Snoring: Code(s): R06.83 - Snoring (8) Daytime somnolence: Code(s): R40.0 - Somnolence Plan Patient is 73-year-old female came in today for her physical exam Colonoscopy is up-to-date Only medication she is taking from PCP office is levothyroxine 25 mcg and is due for TSH level Her daughter is very concerned that patient is snoring very loudly and feel tired during the day she is concerned about sleep apnea I have ordered sleep study for the patient She also is having epigastric pain off and on, patient have chronic GERD and she has stopped taking her omeprazole I have told her to restart the medication I will book her appointment with gastroenterology as well Mammogram is up-to-date BMI is elevated need to lose weight Orders: Orders TSH reflex Free T4 Today E03.9 - Hypothyroidism, unspecified, K21.9 - Gastro-esophageal reflux disease without esophagitis, K76.0 - Fatty (change of) liver, not elsewhere classified, R10.13 - Epigastric pain, Z00.01 - Encounter for general adult medical examination with abnormal findings RT home sleep study Today R06.83 - Snoring, R40.0 - Somnolence Complete Blood Count Auto Diff Today E03.9 - Hypothyroidism, unspecified, K21.9 - Gastro-esophageal reflux disease without esophagitis, K76.0 - Fatty (change of) liver, not elsewhere classified, R10.13 - Epigastric pain, Z00.01 - Encounter for general adult medical examination with abnormal findings Comprehensive [place]. Panel Fast Today E03.9 - Hypothyroidism, unspecified, K21.9 - Gastro-esophageal reflux disease without esophagitis, K76.0 - Fatty (change of) liver, not elsewhere classified, R10.13 - Epigastric pain, Z00.01 - Encounter for general adult medical examination with abnormal findings Lipid Panel Today E03.9 - Hypothyroidism, unspecified, K21.9 - Gastro-esophageal reflux disease without esophagitis, K76.0 - Fatty (change of) liver, not elsewhere classified, R10.13 - Epigastric pain, Z00.01 - Encounter for general adult medical examination with abnormal findings Referrals Gastroenterology Referral K21.9 - Gastro-esophageal reflux disease without esophagitis Medications: Refilled acyclovir 5% 1 appl topical TID 30 days PRN 5 grams 2RF Cold sore levothyroxine 25 mcg PO DAILY 90 days 90 tabs 3RF Coding Level of Care Code Est Pt Level 4 (44990) Est Pt Prev Care >65y(92647) Diagnoses Encounter for general adult medical examination with abnormal findings Z00.01 Dyspepsia R10.13 Epigastric abdominal pain R10.13 Fatty liver K76.0 Hypothyroidism, unspecified type E03.9 Hypothyroidism type: unspecified Chronic GERD K21.9 Snoring R06.83 Daytime somnolence R40.0
== END 2023-11-05 14:38 | disposition home or self-care (01) ==
PROVIDERS: PCP Internal Medicine; Visit Provider Internal Medicine
DX: Z00.01 Encounter for general adult medical examination with abnormal findings (principal); R10.13 Epigastric pain; K76.0 Fatty (change of) liver, not elsewhere classified; E03.9 Hypothyroidism, unspecified; K21.9 Gastro-esophageal reflux disease without esophagitis; R06.83 Snoring; R40.0 Somnolence
CPT/HCPCS: 99213; 99397

== ENCOUNTER 2023-11-08 07:20 | Outpatient (REF) | payer MEDICAID, SELFPAY ==
[2023-11-08 11:33] LABS: MANUAL DIFF FLAG NO
[2023-11-08 11:40] LABS: Basophils Percent Auto 0.6 % (0-2); Eosinophils Absolute Auto 0.1 X10*3/uL (0.0-0.4); Eosinophils Percent Auto 0.8 % (0-4); Hematocrit 43.3 % (37.0-47.0); Imm Gran Abs Auto 0.01 X10*3/uL (0.00-0.03); Imm Gran Pct Auto 0.2 % (0.0-0.4); Lymphocytes Absolute Auto 2.1 X10*3/uL (1.2-4.9); Lymphocytes Percent Auto 34.1 % (20-40); Mean Corpuscular HGB Conc 32.3 g/dl (31.0-35.0); Mean Corpuscular Hemoglobin 29.5 pg (27.0-33.0); Mean Corpuscular Volume 91.4 fL (80.0-98.0); Mean Platelet Volume 11.5 fL (9.4-12.3); Monocytes Absolute Auto 0.4 X10*3/uL (0.1-1.2); Monocytes Percent Auto 7.1 % (2-11); Neutrophils Absolute Auto 3.5 x10*3/uL (2.0-8.3); Neutrophils Percent Auto 57.2 % (45-73); Platelet Count 246 X10*3/uL (160-400); Red Blood Count 4.74 X10*6/uL (4.20-5.50); Red Cell Distribution Width 12.9 % (11.0-16.0); White Blood Count 6.2 X10*3/uL (4.8-10.8)
[2023-11-08 11:56] LABS: Alanine Aminotransferase 14 U/L (0-31); Alkaline Phosphatase 93 U/L (39-117); Anion Gap 12 (12-20); Aspartate Amino Transferase 19 U/L (5-31); Bilirubin Total 0.8 mg/dL (0.0-1.0); Blood Urea Nitrogen 12 mg/dL (9-16); Calcium 9.2 mg/dL (8.4-10.2); Carbon Dioxide 26 mmol/L (22-29); Chloride 106 mmol/L (96-108); Cholesterol 198 mg/dL (<200); Estimated Glomerular Filt Rate > 60; Glucose Fasting 87 mg/dL (60-99); HDL Cholesterol 52 mg/dL (>40); LDL Cholesterol Calculated 123 mg/dL (<100); Sodium 140 mmol/L (135-145); Total Protein 7.4 g/dL (6.5-8.0); Triglycerides 119 mg/dL (<150)
[2023-11-08 12:14] LABS: TSH reflex Free T4 4.19 uIU/mL (0.32-4.0)
[2023-11-08 12:47] LABS: Free T4 (Free Thyroxine) 0.97 ng/dL (0.71-1.85)
== END 2023-11-08 07:21 | disposition home or self-care (01) ==
LOC: HO.HMGCLDS 07:20
PROVIDERS: PCP Internal Medicine; Visit Provider Internal Medicine
DX: Z00.01 Encounter for general adult medical examination with abnormal findings (principal); E03.9 Hypothyroidism, unspecified; R10.13 Epigastric pain; K76.0 Fatty (change of) liver, not elsewhere classified; K21.9 Gastro-esophageal reflux disease without esophagitis
CPT/HCPCS: 36415; 80053; 80061; 84439; 84443; 85025

== ENCOUNTER 2023-12-01 14:40 | Outpatient (REF) | payer MEDICAID, SELFPAY | END 2023-12-01 14:41 | disposition home or self-care (01) | LOC: HO.MAMMO 14:40 | PROVIDERS: PCP Internal Medicine; Visit Provider Internal Medicine | DX: Z12.31 Encounter for screening mammogram for malignant neoplasm of breast (principal) | CPT/HCPCS: 77063; 77067 ==

== ENCOUNTER → 2023-12-01 15:15 | Outpatient (BNV) | payer MEDICAID, SELFPAY | PROVIDERS: PCP Internal Medicine; Visit Provider Radiology Diagnostic Radiology | DX: Z12.31 Encounter for screening mammogram for malignant neoplasm of breast (principal) | CPT/HCPCS: 77063; 77067 ==

== ENCOUNTER 2023-12-04 15:22 | Outpatient (AMB) | payer MEDICAID, SELFPAY ==
--- NOTE | 2023-12-04 15:27 | MHC.OFFVIS ---
Vital Signs 12/04/23 15:28 Height 5 ft 2 in Weight 165 lb 5.547 oz BMI 30.2 Intake Visit Reasons: Gastroesophageal reflux disease (GERD) Allergies No Known Allergies [No Known Allergies*] Allergy (Verified 11/05/23 14:20) HPI HPI Gastroesophageal reflux disease (GERD): Details: Assessment & Plan (1) Chronic GERD: ?Code(s): K21.9 - Gastro-esophageal reflux disease without esophagitis ?Plan: Indian #dtr translates per pt request. She is having breakthrough HB at night. We will add famotidine for her to use nightly or prn nightly.? Of course, she continues on her omeprazole in the morning.? She denies any constipation, diarrhea, new medications or other concerning alarm symptoms. ROV 6 mos. ? ? ? Medications: New famotidine (Pepcid) 40 mg? PO BEDTIME 30 tabs 6RF K21.9 - Gastro-esophageal reflux disease without esophagitis ? Refilled omeprazole 20 mg? PO DAILY 30 days 30 caps 6RF Laboratory Tests 11/08/23 07:25 WBC 6.2 Hgb 14.0 Hct 43.3 Estimated GFR > 60 Total Bilirubin 0.8 AST 19 ALT 14 Alkaline Phosphatase 93 TSH 4.19 H Free T4 0.97 COLONOSCOPY 2019 Findings: Terminal Ileum Not evaluated Cecum Normal Ascending Colon Moderate diverticulosis Transverse Colon - Moderate diverticulosis Descending Colon Moderate diverticulosis Sigmoid Colon A 4-5 mm sessile polyp removed with cold biopsy and severe diverticulosis Rectum Normal Ano-rectum - Moderate internal hemorrhoids Colon preparation: Good Impression and Post Procedure Diagnosis: Colonoscopy Findings: One small polyp removed Moderate to severe diverticulosis seen in the entire colon Moderate hemorrhoids on retroflexed exam. Plan: Await pathology results Patient has an appointment on 02/04/19 in the GI Clinic with Meghna Shaw NP. Repeat Colonoscopy interval based on path results in 5 years if polyps are adenomatous and 10 years if polyps are hyperplastic. DIAGNOSIS Colon, sigmoid, polypectomy: Tubular adenoma; no high grade dysplasia or carcinoma seen. 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 Pt has been lost to follow up since 03/2022 She is here today with a female family member who is supportive. PT is quite [place]. She has GERD but does not like to take her o2o - it works when she takes it. She complains of epigastric pain, but does not well understand the role of the o2o in this - I try to explain. There are no prior problems with anesthesia or sedation She denies any cardiac or respiratory problems No ID problems. She has one TA in 2019, no known FHX crc, there is a FHX of stomach cancer. We discuss the role of omeprazole in protecting the stomach if the mucus layer is declining with age and this may promote stomach cancer. [facility] Medical History (Updated 12/30/23 @ 17:25 by CAREN Alexander) Epigastric discomfort Change in [facility] Skin cancer screening Abdominal discomfort Abnormal abdominal ultrasound Encounter for general adult medical examination with abnormal findings Difficulty hearing Hypothyroidism Fatty liver Dyspepsia Surgical History H/O colonoscopy H/O esophagogastroduodenoscopy History of laryngoscopy Hx of cholecystectomy Family History Father Myocardial infarction Mother Emphysema, unspecified Son No problems noted. Daughter No problems noted. Social History Housing: House Patient Tobacco Use Status: Never used Tobacco e-Cigarette/Vaping Use: Never Used Second Hand Smoke Exposure: No service: No Current occupational status: retired Cognitive needs: No Hearing needs: No Vision needs: Yes Review of Systems Const Denies fatigue, Denies fever(s), Denies night sweats, Denies poor appetite and Denies weight loss Eyes Details: GLASSES Reports requires corrective lenses ENT Reports Normal hearing present, Denies dental pain, Denies dysphagia, Denies hearing loss, Denies mouth pain, Denies odynophagia, Denies throat swelling, Denies tongue swelling and Reports other (Dentition adequate) Card Reports no additional complaints Resp Reports no additional complaints GI Details: Reports abdominal pain, Denies melena, Reports bloating, Denies hematochezia, Denies constipation, Denies GI cramping, Denies dysphagia, Denies excessive flatus, Denies early satiety, Reports dyspepsia, Reports heartburn, Denies diarrhea, Denies nausea, Denies odynophagia, Denies vomiting and Denies hematemesis Skin/Breast Denies pruritus, Denies lesions, Denies rash and Denies jaundice Neuro Reports Normal hearing present and Denies Abnormal speech present Endo Denies fatigue Aller/Immun Denies throat swelling and Denies tongue swelling Physical Exam Vital Signs: BMI result Body Mass Index 30.2 Const General: cooperative, no acute distress, well developed and well groomed Nutritional Appearance: well nourished and overweight Orientation/consciousness: oriented to person, oriented to place and oriented to time Limitations: language barrier and other limitations ([place]) HEENT Head: Yes normocephalic and Yes atraumatic Eyes General: appearance normal, both eyes and all related structures Pupils: Equal, round and reactive pupils present Neck Neck: Yes normal visual inspection and Yes no lymphadenopathy Thyroid: Thyroid normal Resp Effort & Inspection: normal respiratory effort and able to speak in complete sentences Auscultation: clear to auscultation bilaterally Cardio Rate: regular rate Rhythm: regular rhythm Heart sounds: Normal, physiologic split S2 sound present Peripheral pulses: radial pulses present and posterior tibial pulses present GI Inspection: No distended, No Abdominal panniculus present and Yes obesity Palpation (GI): Soft to palpation, nontender, no guarding, not rigid and No hepatosplenomegaly present Percussion: Yes normal to percussion Auscultation: normal bowel sounds Rectal Exam - Female: deferred Skin General skin exam: no rashes or lesions noted, turgor normal, skin not dry, no jaundice, No spider nevi and no striae Rashes: no rashes Nails: normal Neuro General: oriented to person, oriented to place and oriented to time Cranial nerves: Yes Equal, round and reactive pupils present and Yes Normal hearing present Speech: No Abnormal speech present Extrem General: Yes normal to inspection, No clubbing, No cyanosis and No edema Psych Appearance: grossly normal and well kempt Mental Status: mental status grossly normal Speech and movement: Normal speech and movement present Affect: normal affect Attitude: cooperative Thought process: Normal thought process present and not confabulating Thought content: Normal thought content present Insight: Limited insight present (Psych) Judgement: Limited judgement present (Psych) Results Reviewed Results Reviewed: Laboratory Tests 11/08/23 07:25 WBC 6.2 Hgb 14.0 Hct 43.3 Estimated GFR > 60 Total Bilirubin 0.8 AST 19 ALT 14 Alkaline Phosphatase 93 TSH 4.19 H Free T4 0.97 Assessment & Plan Assessment & Plan (1) Tubular adenoma of colon: Comment: On 2019 scope repeat 5 years Code(s): D12.6 - Benign neoplasm of colon, unspecified Category: Medical (2) Chronic GERD: Code(s): K21.9 - Gastro-esophageal reflux disease without esophagitis Category: Medical (3) Pre-op examination: Code(s): Z01.818 - Encounter for other preprocedural examination Category: Medical (4) Epigastric abdominal pain: Code(s): R10.13 - Epigastric pain Category: Medical Plan Indian #Vilmarys because 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 Pt has been lost to follow up since 03/2022 She is here today with a female family member who is supportive. PT is quite [place]. She has GERD but does not like to take her o2o - it works when she takes it. She complains of epigastric pain, but does not well understand the role of the o2o in this - I try to explain. There are no prior problems with anesthesia or sedation She denies any cardiac or respiratory problems No ID problems. She has one TA in 2019, no known FHX crc, there is a FHX of stomach cancer. We discuss the role of omeprazole in protecting the stomach if the mucus layer is declining with age and this may promote stomach cancer. Orders: Orders EGD/[place] Combo - GI Use Only 12/04/23 Medications: New peg 3350-electrolytes 236-22.74-6.74 -5.86 gram (Golytely) until fecal effluent is clear; do not exceed a total volume of 2,000 mL 240 mL PO Q10M 4,000 mL 0RF 1 day Z12.11 - Encounter for screening for malignant neoplasm of colon Refilled omeprazole 20 mg PO DAILY 30 caps 12RF 30 days K21.9 - Gastro-esophageal reflux disease without esophagitis Discontinued famotidine Discontinued Reason: Doctor's Order 40 mg PO BEDTIME 30 tabs 2RF K21.9 - Gastro-esophageal reflux disease without esophagitis Coding Level of Care Code Est Pt Level 4 (45635) Diagnoses Tubular adenoma of colon D12.6 Chronic GERD K21.9 Pre-op examination Z01.818 Epigastric abdominal pain R10.13
[2023-12-04 15:28] VITALS: BMI 30.2
== END 2023-12-04 15:54 | disposition home or self-care (01) ==
PROVIDERS: PCP Internal Medicine; Visit Provider Nurse Practitioner
DX: D12.6 Benign neoplasm of colon, unspecified (principal); K21.9 Gastro-esophageal reflux disease without esophagitis; Z01.818 Encounter for other preprocedural examination; R10.13 Epigastric pain
CPT/HCPCS: 99214

== ENCOUNTER → 2023-12-04 15:22 | Outpatient (BNVA) | payer MEDICAID, SELFPAY | PROVIDERS: PCP Internal Medicine; Visit Provider Nurse Practitioner | DX: Z01.818 Encounter for other preprocedural examination (principal); K21.9 Gastro-esophageal reflux disease without esophagitis; D12.6 Benign neoplasm of colon, unspecified; R10.13 Epigastric pain | CPT/HCPCS: 99212 ==

== ENCOUNTER → 2023-12-16 15:56 | Outpatient (REF) | payer MEDICAID, SELFPAY | LOC: HO.SL 15:56 | PROVIDERS: PCP Internal Medicine; Visit Provider Internal Medicine | DX: R06.83 Snoring (principal); R40.0 Somnolence; G47.33 Obstructive sleep apnea (adult) (pediatric) | CPT/HCPCS: 95806 ==

== ENCOUNTER → 2023-12-16 16:11 | Outpatient (BNV) | payer MEDICAID, SELFPAY | PROVIDERS: PCP Internal Medicine; Visit Provider Internal Medicine | DX: G47.33 Obstructive sleep apnea (adult) (pediatric) (principal) | CPT/HCPCS: 95806 ==

== ENCOUNTER 2024-01-16 14:56 | Outpatient (AMB) | payer MEDICAID, SELFPAY ==
[2024-01-16 14:57] VITALS: BP 126/74; PULSE 75; O2SAT 95; BMI 30.3
--- NOTE | 2024-01-16 14:57 | MHC.PC.OV ---
Vital Signs 01/16/24 14:57 Height 5 ft 2 in Weight 165 lb 8 oz BMI 30.3 BP 126/74 Blood Pressure Location Rt brachial Position Sitting Pulse 75 Pulse Source Pulse Oximeter Pulse Oximetry (%) 95 Oxygen Delivery Method Room Air Intake Visit Reasons: Sleep study result Allergies No Known Allergies [No Known Allergies*] Allergy (Verified 01/16/24 14:57) Medication List - Last Reconciled 01/16/24 by Torsten Garza MD levothyroxine 25 mcg PO DAILY 90 days omeprazole 20 mg PO DAILY 30 days peg 3350-electrolytes 236-22.74-6.74 -5.86 gram (Golytely) 240 mL PO Q10M 1 day Zovirax 5% (acyclovir) 1 appl topical ONCE 30 days NS Tobacco use date assessed: 01/16/24 Fall risk assessment: No Falls in past year Last assessed Fall Risk: 01/16/24 Dental Screening Dental Screen Date: 01/16/24 Did you have a dental problem in the last 6 months where you did not have access to dental care?: No HPI Sleep study result HPI Details Patient is 73-year-old female came in today to go over her sleep study report with her daughter Patient have a history of snoring and she was questioning possibility of sleep apnea Sleep study shows mild obstructive sleep apnea, recommendations are to try to lose weight However we talked about the need for CPAP machine, patient says that she does not feel tired during the day and would rather try to lose weight And also to try to sleep on her side. She also is traveling to [place] in April and need a letter stating that patient can hear She has failed office hearing whisper test. I have placed audiology evaluation for the patient to see how bad her hearing is. At this point I will not be able to provide her the letter. [facility] Medical History Epigastric discomfort Change in mole Skin cancer screening Abdominal discomfort Abnormal abdominal ultrasound Encounter for general adult medical examination with abnormal findings Difficulty hearing Hypothyroidism Fatty liver Dyspepsia Surgical History H/O colonoscopy H/O esophagogastroduodenoscopy History of laryngoscopy Hx of cholecystectomy Family History Father Myocardial infarction Mother Emphysema, unspecified Son No problems noted. Daughter No problems noted. Social History Housing: House Patient Tobacco Use Status: Never used Tobacco e-Cigarette/Vaping Use: Never Used Second Hand Smoke Exposure: No service: No Current occupational status: retired Cognitive needs: No Hearing needs: No Vision needs: Yes Questionnaire Thrive Questionnaire Date Thrive assessed: 11/05/23 AUDIT C Alcohol Use Questionnaire (AUDIT-C) 1. How often do you have a drink containing alcohol?: Never 3. How often do you have six or more drinks on one occasion?: Never Total Score: 0 Score Reviewed/Action Taken: Yes KEYSHA-7 AMB Questionnaire KEYSHA-7 Date KEYSHA - 7 assessed: 11/05/23 Source: Developed by Drs. Alfred Goldberg, Michelle Garcia, Noe Nowak and colleagues, with an educational perfecto from [employer]. Review of Systems Const Denies chills and Denies fever(s) ENT Denies epistaxis and Denies nasal discharge Card Denies chest pain Resp Denies chest congestion, Denies cough and Denies hemoptysis GI Denies diarrhea and Denies nausea Skin/Breast Denies rash Neuro Reports no additional complaints Psych Reports no additional complaints Endo Reports no additional complaints Physical exam (Primary Care) Vital Signs: Last Vital Signs Pulse 75 01/16/24 14:57 BP 126/74 01/16/24 14:57 Pulse Ox 95 01/16/24 14:57 Oxygen Delivery Method Room Air 01/16/24 14:57 BMI result Body Mass Index 30.3 Tobacco/Smoking Status: Tobacco use Status Tobacco use date assessed 01/16/24 01/16/24 14:58 Patient Tobacco Use Status Never used Tobacco 01/16/24 14:58 e-Cigarette/Vaping Use Never Used 01/16/24 14:58 Thrive Assessment: Date of Thrive Assessment Date Thrive assessed 11/05/23 01/16/24 14:58 Const General: cooperative, comfortable and no acute distress Orientation/consciousness: patient oriented x3 HENMT Other: Ear exam benign Head: Yes normocephalic Eyes General: appearance normal, both eyes and all related structures Neck Neck: Yes supple Resp Effort & Inspection: normal respiratory effort, no cough and no stridor Cardio Rhythm: regular rhythm Heart sounds: S1 normal heart sound present and S2 normal heart sound present Skin General skin exam: turgor normal Neuro General: patient oriented x3, tone normal and moves all extremities Extrem Right lower extremity: no edema Left lower extremity: no edema Assessment and Plan Assessment & Plan (1) Hearing impaired: Comment: Read slips Code(s): H91.90 - Unspecified hearing loss, unspecified ear Qualifiers: Hearing loss type: unspecified Laterality: bilateral Qualified Code(s): H91.93 - Unspecified hearing loss, bilateral (2) Mild obstructive sleep apnea: Code(s): G47.33 - Obstructive sleep apnea (adult) (pediatric) (3) Obesity due to excess calories: Code(s): E66.09 - Other obesity due to excess calories Qualifiers: Obesity classification: adult class 1 (BMI 30 - 34.9) Serious obesity comorbidity presence: without serious comorbidity Body mass index: BMI 30.0-30.9 Qualified Code(s): E66.09 - Other obesity due to excess calories; Z68.30 - Body mass index [BMI] 30.0-30.9, adult (4) Snoring: Code(s): R06.83 - Snoring Plan Patient is 73-year-old female came in today to go over her sleep study report with her daughter Patient have a history of snoring and she was questioning possibility of sleep apnea Sleep study shows mild obstructive sleep apnea, recommendations are to try to lose weight However we talked about the need for CPAP machine, patient says that she does not feel tired during the day and would rather try to lose weight And also to try to sleep on her side. She also is traveling to [place] in April and need a letter stating that patient can hear She has failed office hearing whisper test. I have placed audiology evaluation for the patient to see how bad her hearing is. At this point I will not be able to provide her the letter. Orders: Orders AMB Hearing Screen Today H91.90 - Unspecified hearing loss, unspecified ear Referrals Audiology Referral H91.90 - Unspecified hearing loss, unspecified ear Coding Level of Care Code Est Pt Level 4 (82319) Diagnoses Bilateral hearing loss, unspecified hearing loss type H91.93 Hearing loss type: unspecified Laterality: bilateral Mild obstructive sleep apnea G47.33 Class 1 obesity due to excess calories without serious comorbidity with body mass index (BMI) of 30.0 to 30.9 in adult E66.09; Z68.30 Obesity classification: adult class 1 (BMI 30 - 34.9) Serious obesity comorbidity presence: without serious comorbidity Body mass index: BMI 30.0-30.9 Snoring R06.83
== END 2024-01-16 16:28 | disposition home or self-care (01) ==
PROVIDERS: PCP Internal Medicine; Visit Provider Internal Medicine
DX: H91.93 Unspecified hearing loss, bilateral (principal); G47.33 Obstructive sleep apnea (adult) (pediatric); E66.09 Other obesity due to excess calories; Z68.30 Body mass index [BMI] 30.0-30.9, adult; R06.83 Snoring
CPT/HCPCS: 99214

== ENCOUNTER 2024-01-21 15:15 | Outpatient (REF) | payer MEDICAID, SELFPAY | END 2024-01-21 15:16 | disposition home or self-care (01) | LOC: HO.HAP 15:15 | PROVIDERS: Visit Provider Internal Medicine | DX: Z46.1 Encounter for fitting and adjustment of hearing aid (principal); H90.3 Sensorineural hearing loss, bilateral | CPT/HCPCS: V5266 ==

== ENCOUNTER 2024-04-06 15:58 | Outpatient (REF) | payer MEDICAID, SELFPAY ==
--- NOTE | 2024-04-07 07:13 | MHC.AU.HA3 ---
Hearing Instrument Follow-Up- Binaural Date of Visit: 04/06/24 Right Ear: Amari, Model, Color, Serial Number: Chip Low 50-312 SN: [id number] Color: Rolyagne Agronomy Teacher Repair Warranty: 06/14/2022 Agronomy Teacher Loss and Damage Warranty: 06/14/2022 [facility] Service Plan: 03/19/2020 Battery Size: 312 Earmold/Dome/CShell/SlimTip:cShellSN: [id number] Type of Wax Guard: Cerustop Dispensed By: [facility] Date of Fittin03/19/2019 Left Ear: Amari, Model, Color, Serial Number: Chip Low 50-312 SN: [id number] Color: Ghazalae Agronomy Teacher Repair Warranty: 06/14/2022 Agronomy Teacher Loss and Damage Warranty: 06/24/2022 [facility] Service Plan: 03/19/2020 Battery Size: 312 Earmold/Dome/CShell/SlimTip: cShell SN: [id number] Type of Wax Guard: Cerustop Dispensed By: [facility] Date of Fittin03/19/2019 Follow-Up Summary: Accompanied by sonMarcial. Updated hearing test - see audio. Cleaned hearing aids and ear molds. Replaced wax guards. Vacuumed microphones. Ran through dehumidifier. Reprogrammed to updated test. Amplification close to maxed out. 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 Discussed options of new hearing aids or possible CI evaluation. Jocelyn is interested in pursuing CI evaluation. Provided contact information for [facility]. Advised if not a candidate or chooses not to pursue CI, she can return here for Hearing Aid Consultation for new hearing aids with stronger receivers. She leaves the country on May 22 for three months. Explained that hearing test is valid for six months so she will schedule an appointment as soon as she returns if she ultimately decides to pursue new hearing aids. Recommendations: Hearing instrument follow-up or maintenance as needed. Please contact our clinic with any questions or concerns. Diagnosis Code(s): Primary Diagnosis: H90.3 Bilateral Sensorineural Hearing Loss Signature: Provider: Analia Landrum, [facility]
== END 2024-04-06 15:59 | disposition home or self-care (01) ==
LOC: HO.SH 15:58
PROVIDERS: Visit Provider Internal Medicine
DX: Z01.118 Encounter for examination of ears and hearing with other abnormal findings (principal); Z46.1 Encounter for fitting and adjustment of hearing aid; H90.3 Sensorineural hearing loss, bilateral
CPT/HCPCS: 92557; 92593; 99499

== ENCOUNTER 2024-04-20 12:49 | Outpatient (REF) | payer MEDICAID, SELFPAY ==
--- NOTE | 2024-04-20 17:16 | MHC.AU.MED ---
Medical Clearance for Hearing Instrumentation Date: 04/20/24 Patient Name: Jocelyn Malagon Date of : 1950 Primary Care Provider: Torsten Garza MD We have seen your patient on 04/20/24 and have determined that they are a candidate for amplification (See accompanying report). Specifically, they would benefit from: Hearing aid use in both ears There is a statute that addresses Medical Evaluation Requirements prior to fitting a patient with a hearing aid. According to [place] statute 265 CMR:6.03(1), (a) General. Except as provided in 265 CMR 6.03(1)(b), a operator electronic warfare shall not sell a hearing aid unless the prospective user has presented to the operator electronic warfare a written statement signed by a licensed physician that states that the patient's hearing loss has been medically evaluated and the patient may be considered a candidate for a hearing aid. The medical evaluation must have taken place within the preceding six months. Please note: Due to the [place] Statute referenced above, we cannot accept a signature other than that of a licensed physician. BLANCHING MACHINE OPERATOR and PA signatures cannot be accepted. I am in agreement with the above recommendation. There is no medical contraindication for hearing instrumentation. Physician Signature Date Physician Name (Printed)
--- NOTE | 2024-04-21 07:14 | MHC.AU.HA1 ---
Hearing Aid Evaluation Date of Visit: 04/20/24 Title Curative Specialist Used: Frisian- In Person Historical Information: Description of Hearing: Severe sensorineural hearing loss, bilaterally Current personal amplification information: Phonmarlin Dohertyo M50-312 hearing aids with c-shells fit in February 2019 Summary: Accompanied by son, Marcial, who had called [facility] to inquire about CI evaluation as previously discussed; however, ultimately decided against CI for now. Ready to upgrade hearing aid technology instead. Discussed changing styles (RITE to BTE). Showed demo of size differences, equity director wire vs tubing, larger battery, softer ear mold material. Jocelyn was agreeable to differences. Impressions taken, bilaterally, without incident - sent to [facility]. No longer leaving May 22 due to issue with airline. Planning to reschedule flight for after hearing aid fitting. Hearing Aid Prescription: Based on the individual?s shared listening needs, communication environments, dexterity, desire for connectivity, and personal preferences, the following prescription for amplification has been made: Right ear: Make, Model, Color: Phonak Jennifer L70-UP Color: Silver Alfaro Battery Size: 675 Type of Earmold/Dome/CShell/SlimTip: [facility]y 40 Shore Half Shell Left ear: Left ear prescription to be same as Right Hearing Aid above: Make, Model, Color: Phonak Jennifer L70-UP Color: Silver Alfaro Battery Size: 675 Type of Earmold/Dome/CShell/SlimTip: Y[employer]y 40 Shore Half Shell Plan of Care: Patient wishes to purchase hearing aids as prescribed Action Taken/Action Needed: Medical Clearance to be requested from PCP/ENT. Hearing Instrument Fitting to be scheduled when materials arrive Primary Diagnosis: H90.3 Bilateral Sensorineural Hearing Loss Signature: Provider: Analia Landrum, [facility]
== END 2024-04-20 12:50 | disposition home or self-care (01) ==
LOC: HO.HAP 12:49
PROVIDERS: Visit Provider Internal Medicine
DX: Z46.1 Encounter for fitting and adjustment of hearing aid (principal); H90.3 Sensorineural hearing loss, bilateral
CPT/HCPCS: 92591; V5266; V5275

== ENCOUNTER 2024-04-29 05:38 | Day surgery (SDC) | payer MEDICAID, SELFPAY ==
[2024-04-27 13:00] VITALS: BMI 30.2
--- NOTE | 2024-04-27 15:01 | HO.ANESPROP2 ---
Documented by User: Marilee Wilson NP 04/27/24 15:01 HPI - Anesthesia Eval Consult details Narrative: 73yo F for Upper Endoscopy and Colonoscopy [facility] Active Problems Active Problems: All Active Problems Mild obstructive sleep apnea (Acute) Pre-op examination (Acute) Epigastric abdominal pain (Acute) Daytime somnolence (Acute) Snoring (Acute) Recurrent cold sores (Acute) Olfactory hallucinations (Acute) Left lumbar radiculitis (Acute) Benign positional vertigo (Acute) Tubular adenoma of colon (Acute) Hearing impaired (Acute) Chronic GERD (Acute) PVCs (premature ventricular contractions) (Acute) Chest pain (Acute) Obesity due to excess calories (Acute) Difficulty hearing (Acute) Hypothyroidism (Acute) Fatty liver (Acute) Dyspepsia (Acute) Past Medical History Medical History Epigastric discomfort Change in mole Skin cancer screening Abdominal discomfort Abnormal abdominal ultrasound Encounter for general adult medical examination with abnormal findings Difficulty hearing Hypothyroidism Fatty liver Dyspepsia Family History Family History Father Myocardial infarction Mother Emphysema, unspecified Son No problems noted. Daughter No problems noted. Surgical History Surgical History H/O colonoscopy H/O esophagogastroduodenoscopy History of laryngoscopy Hx of cholecystectomy Social History Social History Housing: House Patient Tobacco Use Status: Never used Tobacco e-Cigarette/Vaping Use: Never Used Second Hand Smoke Exposure: No Advance Directives: No Advance Directives Information Provided: Yes service: No Current occupational status: retired Cognitive needs: No Hearing needs: No Vision needs: Yes Meds Allergies Allergy/AdvReac Type Severity Reaction Status Date / Time No Known Allergies Allergy Verified 01/16/24 14:57 [No Known Allergies*] Exam Height,Weight and Vital Signs: Height 5 ft 2 in Weight 74.843 kg Assessment and Plan Assessment Anesthesia Assessment: Chart Reviewed Documented by User: Leora Capone MD 04/29/24 07:52 PMFSH Past Medical History Medical History Epigastric discomfort Change in mole Skin cancer screening Abdominal discomfort Abnormal abdominal ultrasound Encounter for general adult medical examination with abnormal findings Difficulty hearing Hypothyroidism Fatty liver Dyspepsia Family History Family History Father Myocardial infarction Mother Emphysema, unspecified Son No problems noted. Daughter No problems noted. Surgical History Surgical History H/O colonoscopy H/O esophagogastroduodenoscopy History of laryngoscopy Hx of cholecystectomy History of Problems with Anesthesia: No Social History Social History Housing: House Patient Tobacco Use Status: Never used Tobacco e-Cigarette/Vaping Use: Never Used Second Hand Smoke Exposure: No Advance Directives: No Advance Directives Information Provided: Yes service: No Current occupational status: retired Cognitive needs: No Hearing needs: No Vision needs: Yes Meds Allergies Allergy/AdvReac Type Severity Reaction Status Date / Time No Known Allergies Allergy Verified 01/16/24 14:57 [No Known Allergies*] Exam Airway Mallampati Class: II TM Dist: >3cm Neck ROM: Full Loose/Missing/Broken Teeth: No Heart: RRR Lungs: CTA Assessment and Plan Assessment Anesthesia Assessment: Anesthesia Plan Discussed Final Anesthetic Review History of Problems with Anesthesia: No NPO: Yes ASA Class: II Final Preanesthetic Review: Meds/Allgs Chart Reviewed, Consent Obtained/Reviewed and Anes Risks/Benef Reviewed Patient Risk: Low Procedure Risk: Intermediate Anesthetic Plan Anesthetic Plan: MAC: Disposition: Standard PACU
[2024-04-29 06:36] VITALS: BP 131/79; PULSE 77; RESP 16; TEMP 36.2; O2SAT 99
--- NOTE | 2024-04-29 07:38 | MHC.SHP ---
Pre-Procedural Eval Section A - 24 Hr Update-Section A only Date of Service: 04/29/24 Section B - Complete if H&P > 30 days Chief Complaint: Benign neoplasm of colon,gerd, Relevant Family History (Specify if Yes): Yes Relevant Social History: Tobacco Use Present Medications: see Short Stay Collaborative assessment Medical History: Significant History (Epigastric discomfort Change in mole Skin cancer screening Abdominal discomfort Abnormal abdominal ultrasound Encounter for general adult medical examination with abnormal findings Difficulty hearing Hypothyroidism Fatty liver Dyspepsia) History of Previous Operations: Relevant previous surgery/procedure and date(s) (H/O colonoscopy H/O esophagogastroduodenoscopy History of laryngoscopy Hx of cholecystectomy) Allergies: Allergies Allergy/AdvReac Type Severity Reaction Status Date / Time No Known Allergies Allergy Verified 01/16/24 14:57 [No Known Allergies*] Review of Systems Sugical H&P ROS: Negative: Constitution, Cardiovascular, Respiratory, Neurological, Psychiatric, Hem-Onc, Allergic/Immunologic, Gastrointestinal, Genitourinary, Musculoskeletal, Integumentary, Endocrine and Eyes/Ears/Nose/Throat Exam Surgical H&P Exam: Normal: HEENT, Normal: Heart, Normal: Lungs, Normal: Extremities, Normal: Abdomen, Normal: Skin and Normal: Neurological Plan Diagnosis/Plan: Unchanged I have reviewed the history and physical and performed a pertinent physical examination on my patient. No changes have occurred unless specified. Time Spent With Patient Time: Total time managing care of this patient today ____ minutes.
--- NOTE | 2024-04-29 07:41 | P.OPN-COLO_ITS ---
Colonoscopy Operative Note Operative Note Date of Service: 04/29/24 Narrative: Operative Information Procedure Description: EGD, Colonoscopy Indication: GERD< colon screen Anesthesia: MAC FLEXIBLE TRANSORAL UPPER GASTROINTESTINAL ENDOSCOPY AND COLONOSCOPY PROCEDURE NOTE UPPER ENDOSCOPY Consent: Indications for the procedure and potential complications of bleeding, perforation, reaction to medications and missed diagnosis were discussed with the patient and informed consent was obtained. Instrument: Olympus GIF H 190 J mid size upper endoscope Monitoring: Vital signs and clinical assessment, continuous EKG monitoring, Pulse oximetry, Carbon Dioxide monitoring and blood pressure monitoring were done throughout the procedure. Procedure: The patient was placed in the left lateral decubitis position and pre-procedure medications were administered and a bite block was placed. The endoscope was inserted into the mouth and advanced under direct vision to the third part of duodenum. A careful inspection was made as the upper endoscope was withdrawn including a retroflexed examination of the proximal stomach; Findings and interventions are described below. Findings: Larynx:normal Esophagus: GE junction at 32 cm, diaphragm hiatus at 37 cm, consistent with 5 cm fixed hiatal hernia Stomach: pathcy erythema at antrum, Biopsies were obtained. Grade 2 flap valve on retroflexed examination of the cardia. Polypoid lesion at antrum 10-12 mm vs prominent fold removed with cold snare Duodenum: Normal bulb and descending duodenum, Intervention: Biopsies as noted above, cold snare COLONOSCOPY Instrument: Olympus variable stiffness pediatric scope 190L Colonoscopy Monitoring: Vital signs and clinical assessment, continuous EKG monitoring, Pulse oximetry, Carbon Dioxide monitoring and blood pressure monitoring were done throughout the procedure. Colon withdrawal time was 12 minutes. Procedure: The patient was placed in the left lateral decubitis position and pre-procedure medications were administered. After a digital rectal examination of the ano-rectum, the video colonoscope was inserted into the rectum and advanced through the colon to the cecum/TI. The colonoscope was slowly withdrawn in a retrograde panoramic fashion and the colon mucosa was carefully examined including a retroflexed view of the rectum. Findings and interventions are described below. Procedure Difficulty:moderate--changed to supine and pressure on RLQ Findings: Terminal Ileum-normal Cecum:normal Ascending Colon: moderate diverticulosis Transverse Colon - 8-10 mm sessile polyp removed with cold snare Descending Colon: moderate diverticulosis Sigmoid Colon: severe diverticulosis Rectum: Retroflexion with small internal hemorrhoids, grade 1 Anorectum - normal Colon preparation: [place] Bowel Preparation Scale Right colon; 2 Transverse colon: 2 Left colon; 2 (0 = Unprepared colon segment with mucosa not seen due to solid stool that cannot be cleared. 1 = Portion of mucosa of the colon segment seen, but other areas of the colon segment not well seen due to staining, residual stool and/or opaque liquid. 2 = Minor amount of residual staining, small fragments of stool and/or opaque liquid, but mucosa of colon segment seen well. 3 = Entire mucosa of colon segment seen well with no residual staining, small fragments of stool or opaque liquid) Impression and Post Procedure Diagnosis: Endoscopy Findings: hiatal hernia gastritis gastric polyp Colonoscopy Findings: diverticulosis colon polyp internal hemorrhoids Plan: Await Pathology results Repeat Colonoscopy in 5-7 years if adenomatous polyp, other figueredo this would be her last screening colo or earlier if clinically indicated High fiber diet leaflet avoid straining at stool, epsom salts and sitz bath, anusol supps or cream consider referral for hiatal hernia repair Above findings were reviewed with the patient and relevant handouts were provided if indicated.
[2024-04-29 08:32] VITALS: BP 95/57; PULSE 76; RESP 16; TEMP 36.1; O2SAT 97
[2024-04-29 08:47] VITALS: BP 102/65; PULSE 69; RESP 18; TEMP 36.6; O2SAT 97
== END 2024-04-29 09:15 | disposition home or self-care (01) ==
PROVIDERS: Visit Provider Internal Medicine Gastroenterology
PROC: (CPT 45385; principal; 2024-04-29 07:30)
DX: Z12.11 Encounter for screening for malignant neoplasm of colon (principal); Z86.0101 Personal history of adenomatous and serrated colon polyps; K63.5 Polyp of colon; K57.30 Diverticulosis of large intestine without perforation or abscess without bleeding; K64.0 First degree hemorrhoids; K21.9 Gastro-esophageal reflux disease without esophagitis; R10.13 Epigastric pain; K29.50 Unspecified chronic gastritis without bleeding; K44.9 Diaphragmatic hernia without obstruction or gangrene; K76.0 Fatty (change of) liver, not elsewhere classified; H91.90 Unspecified hearing loss, unspecified ear; E03.9 Hypothyroidism, unspecified; Z79.899 Other long term (current) drug therapy; Z90.49 Acquired absence of other specified parts of digestive tract
CPT/HCPCS: 45385; 43251; 43239; 88305; 88313; 88342; J1100; J1596; J2003; J2704

== ENCOUNTER → 2024-04-29 05:38 | Outpatient (BNV) | payer MEDICAID, SELFPAY | PROVIDERS: Visit Provider Internal Medicine Gastroenterology | DX: Z12.11 Encounter for screening for malignant neoplasm of colon (principal); K63.5 Polyp of colon; K57.90 Diverticulosis of intestine, part unspecified, without perforation or abscess without bleeding; K64.0 First degree hemorrhoids; K21.9 Gastro-esophageal reflux disease without esophagitis; K29.70 Gastritis, unspecified, without bleeding; K31.7 Polyp of stomach and duodenum | CPT/HCPCS: 43239; 43251; 45385 ==

== ENCOUNTER 2024-05-07 13:04 | Outpatient (AMB) | payer MEDICAID, SELFPAY ==
--- NOTE | 2024-05-07 13:07 | A.OFFVIS_ITS ---
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 Hydraulic And Plumbing Installer Required: Yes Hydraulic And Plumbing Installer Services: Hydraulic And Plumbing Installer Present Information Interpreted: clinical only Allergies No Known Allergies [No Known Allergies*] Allergy (Verified 05/07/24 14:23) Medication List - Last Reconciled 05/07/24 by Tong Hamm MD levothyroxine 25 mcg PO DAILY 90 days omeprazole 20 mg PO DAILY 30 days Zovirax 5% (acyclovir) 1 appl topical ONCE 30 days NS HPI Comments Details: Was referred by Dr. Martinez for a 5cm fixed diaphragmatic hernia. The patient reports primarily epigastric pain which is more prominent at night when she lies down. It get's worse if she has not taken the Omeprazole and she may wake up from the pain. Denies any nausea, vomiting or difficulty swallowing, or SOB. She does have a history of GERD but recently is controlled with the Omeprazole. Reviewed: EGD 04/29/24: 5cm fixed HH, stomach biopsy negative for H pylori and mild gastritis, no biopsy made at the [facility] Colonoscopy: diverticulosis and a small hyperplastic polyp Echo (2020): OK Holter (2020): OK Sleep study (2023): mild BRIDGET PFSH Medical History (Updated 05/07/24 @ 14:27 by Tong Hamm MD) Diaphragmatic hernia Epigastric discomfort Change in mole Skin cancer screening Abdominal discomfort Abnormal abdominal ultrasound Encounter for general adult medical examination with abnormal findings Difficulty hearing Hypothyroidism Fatty liver Dyspepsia Surgical History H/O colonoscopy H/O esophagogastroduodenoscopy History of laryngoscopy Hx of cholecystectomy Family History Father Myocardial infarction Mother Emphysema, unspecified Son No problems noted. Daughter No problems noted. Social History Housing: House Patient Tobacco Use Status: Never used Tobacco e-Cigarette/Vaping Use: Never Used Second Hand Smoke Exposure: No service: No Current occupational status: retired Cognitive needs: No Hearing needs: No Vision needs: Yes Physical Exam Vital Signs: Last Vital Signs Temp 97.4 F 05/07/24 13:19 Pulse 72 05/07/24 13:19 BP 131/73 05/07/24 13:19 Pulse Ox 98 05/07/24 13:19 Oxygen Delivery Method Room Air 05/07/24 13:19 BMI result Body Mass Index 29.1 GI Inspection: Yes normal to inspection (Gynecoid body habitus), Yes incision (well healed) and Yes obesity Palpation (GI): Soft to palpation Extrem Right lower extremity: normal to inspection Left lower extremity: normal to inspection Assessment & Plan Assessment & Plan (1) Diaphragmatic hernia: Code(s): K44.9 - Diaphragmatic hernia without obstruction or gangrene Category: Medical Qualifiers: Obstruction and gangrene presence: without obstruction or gangrene Qualified Code(s): K44.9 - Diaphragmatic hernia without obstruction or gangrene Plan: 1. We discussed the potential etiology of the hernia. We discussed the details of the diaphragmatic hernia repair and the potential technical challenges such as being able to achieve enough mobilization of the esophagus back in the abdomen and being able to close the diaphragmatic muscle (crura) primarily with sutures. We also discussed the possibility of using a biologic mesh to close the hernia defect if the crura cannot be adequately re-approximated primarily with sutures. We also discussed the option of doing a gastropexy or a fundoplication to prevent postoperative reflux and prevent hernia recurrence. As we discussed, I favor the gastropexy as the fundoplication can cause several distrurbing symptoms such as gas-bloating, flatulence, inability to burp which can be bothersome to patients. Also we discussed the complexity of a potential hernia recurrence in association with a hernia recurrence. We also discussed the decision to repair the hernia should be based on how much her QoL is affected by the hernia (abdominal pain, GERD and need for medications). We agreed to proceed with a CT chest/abdomen/pelvis to make sure there is no other cause of the abdominal pain. Once we rule out other pathology we will have another appointment to decide next steps. The plan was discussed with the patient and her daughter and they are in agreement. Orders: Orders CT chest wo IV con Today K44.9 - Diaphragmatic hernia without obstruction or gangrene, R10.13 - Epigastric pain CT abdomen pelvis w IV con Today K44.9 - Diaphragmatic hernia without obstruction or gangrene, R10.13 - Epigastric pain
[2024-05-07 13:19] VITALS: BP 131/73; PULSE 72; TEMP 36.3; O2SAT 98; BMI 29.1
== END 2024-05-07 14:31 | disposition home or self-care (01) ==
PROVIDERS: Visit Provider Surgery
DX: K44.9 Diaphragmatic hernia without obstruction or gangrene (principal)
CPT/HCPCS: 99204

== ENCOUNTER → 2024-05-07 13:04 | Outpatient (BNVA) | payer MEDICAID, SELFPAY | PROVIDERS: Visit Provider Surgery | DX: K44.9 Diaphragmatic hernia without obstruction or gangrene (principal) | CPT/HCPCS: 99202 ==

== ENCOUNTER 2024-05-13 15:33 | Outpatient (AMB) | payer MEDICAID, SELFPAY ==
--- NOTE | 2024-05-13 15:40 | A.OFFVIS_ITS ---
Vital Signs 05/13/24 15:41 Height 5 ft 2 in Weight 160 lb 14.999 oz BMI 29.4 BP 136/68 Blood Pressure Location Lt brachial Position Sitting Pulse 69 Intake Visit Reasons: S/P double; Dr. Martinez Intake Note: Jocelyn presents in the office as a follow up EGD and COLO. CC: She states that she had an appt last week with Dr. Valle - she was diagnosed with a hernia and talking about having the surgery. [address] Load Test Mechanic Required: Yes Load Test Mechanic Name: Daughter Allergies No Known Allergies [No Known Allergies*] Allergy (Verified 05/13/24 15:41) HPI HPI S/P double; Dr. 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 Pt has been lost to follow up since 03/2022 She is here today with a female family member who is supportive. PT is quite [place]. She has GERD but does not like to take her o2o - it works when she takes it. She complains of epigastric pain, but does not well understand the role of the o2o in this - I try to explain. There are no prior problems with anesthesia or sedation She denies any cardiac or respiratory problems No ID problems. She has one TA in 2019, no known FHX crc, there is a FHX of stomach cancer. We discuss the role of omeprazole in protecting the stomach if the mucus layer is declining with age and this may promote stomach cancer. Orders: Orders EGD/[place] [facility] - GI Use Only 12/04/23 Medications: New peg 3350-electrolytes 236-22.74-6.74 -5.86 gram (Golytely) until fecal effluent is clear; do not exceed a total volume of 2,000 mL 240 mL PO Q10M 4,000 mL 0RF 1 day Z12.11 - Encounter for screening for malignant neoplasm of colon Refilled omeprazole 20 mg PO DAILY 30 caps 12RF 30 days K21.9 - Gastro-esophageal reflux disease without esophagitis Discontinued famotidine Discontinued Reason: Doctor's Order 40 mg PO BEDTIME 30 tabs 2RF K21.9 - Gastro-esophageal reflux disease without esophagitis COLONOSCOPY 04/29/24 Findings: Larynx:normal Esophagus: GE junction at 32 cm, diaphragm hiatus at 37 cm, consistent with 5 cm fixed hiatal hernia Stomach: pathcy erythema at antrum, Biopsies were obtained. Grade 2 flap valve on retroflexed examination of the cardia. Polypoid lesion at antrum 10-12 mm vs prominent fold removed with cold snare Duodenum: Normal bulb and descending duodenum, Findings: Terminal Ileum-normal Cecum:normal Ascending Colon: moderate diverticulosis Transverse Colon - 8-10 mm sessile polyp removed with cold snare Descending Colon: moderate diverticulosis Sigmoid Colon: severe diverticulosis Rectum: Retroflexion with small internal hemorrhoids, grade 1 Anorectum - normal Impression and Post Procedure Diagnosis: Endoscopy Findings: hiatal hernia gastritis gastric polyp Colonoscopy Findings: diverticulosis colon polyp internal hemorrhoids Plan: Await Pathology results Repeat Colonoscopy in 5-7 years if adenomatous polyp, other figueredo this would be her last screening colo or earlier if clinically indicated High fiber diet leaflet avoid straining at stool, epsom salts and sitz bath, anusol supps or cream consider referral for hiatal hernia repair BIOPSY Received: 04/29/24 Diagnosis A. Stomach, biopsy: Antral-type mucosa with mild chronic inactive inflammation; no Helicobacter organisms seen. B. Stomach, pre-pyloric area, biopsy: Antral-type mucosa with surface hyperplastic changes and moderate chronic inactive inflammation; no Helicobacter organisms seen. C. Colon, transverse, polypectomy: Colonic mucosa with mild surface hyperplastic changes; multiple additional levels examined TODAYS VISIT [place] # Travis Live pt of [place] and reads lips. She is here today with a female family member who is supportive The procedure should be repeated in 5 years depending on the pts general health given her age. The procedure was well tolerated. The results were explained and the patient is agreeable to the follow-up interval as stated. The bowel pattern has returned to normal. Education was provided to tell any 1st degree relatives about their findings to be sure that they are screened by age 45. Educated that they will be put on a recall list when it is time for their repeat scope but should they move out of state or away from the hospital they will need to remember along with their primary to repeat the procedure in a timely fashion to avoid any adverse complications. She says she feels well with the omeprazole 20mg qd. I encourage her to be compliant with this as medication therapy as she does not have pain with this regimen. She will be going to [place] for vacation and will be back in Aug. She say Dr. Rubalcava and he ordered some imaging. He also stressed the big risk of the surgery and that medication may be a preferred way to manage it. ROV in Aug [facility] Medical History (Updated 05/20/24 @ 16:51 by CAREN Alexander) Obesity due to excess calories Pre-op examination Diaphragmatic hernia Epigastric discomfort Change in [facility] [place] Skin cancer screening Abdominal discomfort Abnormal abdominal ultrasound Encounter for general adult medical examination with abnormal findings Difficulty hearing Hypothyroidism Fatty liver Dyspepsia Surgical History H/O colonoscopy H/O esophagogastroduodenoscopy History of laryngoscopy Hx of cholecystectomy Family History Father Myocardial infarction Mother Emphysema, unspecified Son No problems noted. Daughter No problems noted. Social History Housing: House Patient Tobacco Use Status: Never used Tobacco e-Cigarette/Vaping Use: Never Used Second Hand Smoke Exposure: No service: No Current occupational status: retired Cognitive needs: No Hearing needs: No Vision needs: Yes Review of Systems Const Denies fatigue, Denies fever(s), Denies night sweats, Denies poor appetite and Denies weight loss ENT Reports Normal hearing present, Denies dental pain, Denies dysphagia, Denies hearing loss, Denies mouth pain, Denies odynophagia, Denies throat swelling, Denies tongue swelling and Reports other (Dentition adequate) Card Reports no additional complaints Resp Reports no additional complaints GI Details: Denies abdominal pain, Denies melena, Denies bloating, Denies hematochezia, Denies constipation, Denies GI cramping, Denies dysphagia, Denies excessive flatus, Denies early satiety, Reports heartburn, Denies diarrhea, Denies nausea, Denies odynophagia, Denies vomiting and Denies hematemesis Skin/Breast Denies pruritus, Denies lesions, Denies rash and Denies jaundice Neuro Reports Normal hearing present and Denies Abnormal speech present Endo Denies fatigue Aller/Immun Denies throat swelling and Denies tongue swelling Physical Exam Vital Signs: Last Vital Signs Pulse 69 05/13/24 15:41 BP 136/68 05/13/24 15:41 BMI result Body Mass Index 29.4 Const General: cooperative, no acute distress, well developed and well groomed Nutritional Appearance: well nourished and overweight Orientation/consciousness: oriented to person, oriented to place and oriented to time Limitations: language barrier HEENT Head: Yes normocephalic and Yes atraumatic Eyes General: appearance normal, both eyes and all related structures Pupils: Equal, round and reactive pupils present Neck Neck: Yes normal visual inspection and Yes no lymphadenopathy Thyroid: Thyroid normal Resp Effort & Inspection: normal respiratory effort and able to speak in complete sentences Auscultation: clear to auscultation bilaterally Cardio Rate: regular rate Rhythm: regular rhythm Heart sounds: Normal, physiologic split S2 sound present Peripheral pulses: radial pulses present and posterior tibial pulses present GI Inspection: No distended and No Abdominal panniculus present Palpation (GI): Soft to palpation, nontender, no guarding, not rigid and No hepatosplenomegaly present Percussion: Yes normal to percussion Auscultation: normal bowel sounds Rectal Exam - Female: deferred Skin General skin exam: no rashes or lesions noted, turgor normal, skin not dry, no jaundice, No spider nevi and no striae Rashes: no rashes Nails: normal Neuro General: oriented to person, oriented to place and oriented to time Cranial nerves: Yes Equal, round and reactive pupils present and Yes Normal hearing present Speech: No Abnormal speech present Extrem General: Yes normal to inspection, No clubbing, No cyanosis and No edema Psych Appearance: grossly normal and well kempt Mental Status: mental status grossly normal Speech and movement: Normal speech and movement present Affect: normal affect Attitude: cooperative Thought process: Normal thought process present and not confabulating Thought content: Normal thought content present Insight: Good insight present (Psych) Judgement: Good judgement present (Psych) Results Reviewed Results Reviewed: COLONOSCOPY 04/29/24 Findings: Larynx:normal Esophagus: GE junction at 32 cm, diaphragm hiatus at 37 cm, consistent with 5 cm fixed hiatal hernia Stomach: pathcy erythema at antrum, Biopsies were obtained. Grade 2 flap valve on retroflexed examination of the cardia. Polypoid lesion at antrum 10-12 mm vs prominent fold removed with cold snare Duodenum: Normal bulb and descending duodenum, Findings: Terminal Ileum-normal Cecum:normal Ascending Colon: moderate diverticulosis Transverse Colon - 8-10 mm sessile polyp removed with cold snare Descending Colon: moderate diverticulosis Sigmoid Colon: severe diverticulosis Rectum: Retroflexion with small internal hemorrhoids, grade 1 Anorectum - normal Impression and Post Procedure Diagnosis: Endoscopy Findings: hiatal hernia gastritis gastric polyp Colonoscopy Findings: diverticulosis colon polyp internal hemorrhoids Plan: Await Pathology results Repeat Colonoscopy in 5-7 years if adenomatous polyp, other figueredo this would be her last screening colo or earlier if clinically indicated High fiber diet leaflet avoid straining at stool, epsom salts and sitz bath, anusol supps or cream consider referral for hiatal hernia repair BIOPSY Received: 04/29/24 Diagnosis A. Stomach, biopsy: Antral-type mucosa with mild chronic inactive inflammation; no Helicobacter organisms seen. B. Stomach, pre-pyloric area, biopsy: Antral-type mucosa with surface hyperplastic changes and moderate chronic inactive inflammation; no Helicobacter organisms seen. C. Colon, transverse, polypectomy: Colonic mucosa with mild surface hyperplastic changes; multiple additional levels examined Assessment & Plan Assessment & Plan (1) Epigastric abdominal pain: Code(s): R10.13 - Epigastric pain Category: Medical (2) Tubular adenoma of colon: Comment: 04/2024 scope repeat 5 years Code(s): D12.6 - Benign neoplasm of colon, unspecified Category: Medical (3) Chronic GERD: Code(s): K21.9 - Gastro-esophageal reflux disease without esophagitis Category: Medical (4) Hearing impaired: Comment: Read slips Code(s): H91.90 - Unspecified hearing loss, unspecified ear Category: Medical Qualifiers: Hearing loss type: unspecified Laterality: bilateral Qualified Code(s): H91.93 - Unspecified hearing loss, bilateral (5) Constipation: Code(s): K59.00 - Constipation, unspecified Category: Medical Plan [place] # Travis Live pt of [place] and reads lips. She is here today with a female family member who is supportive The procedure should be repeated in 5 years depending on the pts general health given her age. The procedure was well tolerated. The results were explained and the patient is agreeable to the follow-up interval as stated. The bowel pattern has returned to normal. Education was provided to tell any 1st degree relatives about their findings to be sure that they are screened by age 45. Educated that they will be put on a recall list when it is time for their repeat scope but should they move out of state or away from the hospital they will need to remember along with their primary to repeat the procedure in a timely fashion to avoid any adverse complications. She says she feels well with the omeprazole 20mg qd. I encourage her to be compliant with this as medication therapy as she does not have pain with this regimen. She will be going to [place] for vacation and will be back in Aug. She say Dr. Rubalcava and he ordered some imaging. He also stressed the big risk of the surgery and that medication may be a preferred way to manage it. ROV in Aug Medications: New bisacodyl (Dulcolax (bisacodyl)) 10 mg (2 x 5 mg) PO BEDTIME 60 tabs 3RF 30 days K59.00 - Constipation, unspecified Coding Level of Care Code Est Pt Level 3 (52961) Diagnoses Epigastric abdominal pain R10.13 Tubular adenoma of colon D12.6 Chronic GERD K21.9 Bilateral hearing loss, unspecified hearing loss type H91.93 Hearing loss type: unspecified Laterality: bilateral Constipation K59.00
[2024-05-13 15:41] VITALS: BP 136/68; PULSE 69; BMI 29.4
== END 2024-05-13 16:09 | disposition home or self-care (01) ==
PROVIDERS: PCP Internal Medicine; Visit Provider Nurse Practitioner
DX: R10.13 Epigastric pain (principal); D12.6 Benign neoplasm of colon, unspecified; K21.9 Gastro-esophageal reflux disease without esophagitis; H91.93 Unspecified hearing loss, bilateral; K59.00 Constipation, unspecified
CPT/HCPCS: 99213

== ENCOUNTER → 2024-05-13 15:33 | Outpatient (BNVA) | payer MEDICAID, SELFPAY | PROVIDERS: PCP Internal Medicine; Visit Provider Nurse Practitioner | DX: K21.9 Gastro-esophageal reflux disease without esophagitis (principal); K59.00 Constipation, unspecified; D12.6 Benign neoplasm of colon, unspecified; R10.13 Epigastric pain | CPT/HCPCS: 99212 ==

== ENCOUNTER 2024-06-10 15:25 | Outpatient (REF) | payer MEDICAID, SELFPAY ==
--- NOTE | 2024-06-10 16:28 | MHC.AU.HA2 ---
Hearing Instrument Fitting- Adult- Binaural Date of Visit: 06/10/24 Hearing Instruments Dispensed: Right Ear: Make, Model, Color, Serial Number: Chip Rodriguez L70-UP SN: [id number] Color: Silver Alfaro Calender Machine Operator Helper Repair Warranty: 05/22/2027 Calender Machine Operator Helper Loss and Damage Warranty: 05/22/2027 [facility] Service Plan: 06/10/2025 Battery Size: 675 Earmold/Dome/CShell/SlimTip: Yessy 40 Shore Half Shell SN: [id number] Warranty 08/25/2024 Left Ear: Make, Model, Color, Serial Number: Chip Atkinsonida L70-UP SN: [id number] Color: Silver Alfaro Calender Machine Operator Helper Repair Warranty: 05/22/2027 Calender Machine Operator Helper Loss and Damage Warranty: 05/22/2027 [facility] Service Plan: 06/10/2025 Battery Size: 675 Earmold/Dome/CShell/SlimTip: Yessy 40 Shore Half Shell SN: [id number] Warranty 08/25/2024 Summary of Fitting: Accompanied by daughter. Ran feedback curriculum development manager and real ear measures. Decreased slightly due to perceived loudness. Reviewed care and use including VC use and cleaning ear mold. Advised the need for periodic tubing changes. Long-time CHRISTIAN user, otherwise familiar with general maintenance. Paired to cellphone and myPhonak sapna. Leaving for [place] this weekend, returning at end of July. Given no time to schedule follow up prior to leaving, advised to bring old HAs to [place] as back up if issues with new HAs arise. Scheduled follow up upon return in August 2024. Recommendations: A hearing instrument follow-up was scheduled. Diagnosis Code(s): Primary Diagnosis: H90.3 Bilateral Sensorineural Hearing Loss Signature: Provider: Analia Landrum, [facility]
== END 2024-06-10 15:26 | disposition home or self-care (01) ==
LOC: HO.HAP 15:25
PROVIDERS: Visit Provider Internal Medicine
DX: Z46.1 Encounter for fitting and adjustment of hearing aid (principal); H90.3 Sensorineural hearing loss, bilateral
CPT/HCPCS: V5011; V5020; V5160; V5261; V5264; V5266

== ENCOUNTER 2024-07-19 13:07 | Outpatient (REF) | payer MEDICAID, SELFPAY | END 2024-07-19 13:08 | disposition home or self-care (01) | LOC: HO.HAP 13:07 | PROVIDERS: Visit Provider Internal Medicine | DX: Z46.1 Encounter for fitting and adjustment of hearing aid (principal); H90.3 Sensorineural hearing loss, bilateral | CPT/HCPCS: V5266 ==

== ENCOUNTER → 2024-08-30 09:36 | Outpatient (BNV) | payer MEDICAID, SELFPAY | PROVIDERS: PCP Internal Medicine; Visit Provider Radiology Diagnostic Radiology | DX: K57.30 Diverticulosis of large intestine without perforation or abscess without bleeding (principal) | CPT/HCPCS: 71250; 74177 ==

== ENCOUNTER 2024-08-31 13:58 | Outpatient (REF) | payer MEDICAID, SELFPAY | END 2024-08-31 13:59 | disposition home or self-care (01) | LOC: HO.HAP 13:58 | PROVIDERS: Visit Provider Internal Medicine | DX: Z13.89 Encounter for screening for other disorder (principal) ==

== ENCOUNTER 2024-09-13 11:25 | Outpatient (AMB) | payer MEDICAID, SELFPAY ==
--- NOTE | 2024-09-13 18:28 | MHC.OFFVISWM ---
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 HPI Comments Details: The patient reports no symptoms whatsoever if she takes the Omperazole daily. She has experienced chest pain when she forgets to take the medication. We reviewed the CT results with the patient and her daughter. The CT shows a large sliding diaphragmatic hernia. [facility] Medical History (Updated 05/20/24 @ 16:51 by CAREN Alexander) Obesity due to excess calories Pre-op examination Diaphragmatic hernia Epigastric discomfort Change in [facility] [place] Skin cancer screening Abdominal discomfort Abnormal abdominal ultrasound Encounter for general adult medical examination with abnormal findings Difficulty hearing Hypothyroidism Fatty liver Dyspepsia Surgical History H/O colonoscopy H/O esophagogastroduodenoscopy History of laryngoscopy Hx of cholecystectomy Family History Father Myocardial infarction Mother Emphysema, unspecified Son No problems noted. Daughter No problems noted. Social History Housing: House Patient Tobacco Use Status: Never used Tobacco e-Cigarette/Vaping Use: Never Used Second Hand Smoke Exposure: No service: No Current occupational status: retired Cognitive needs: No Hearing needs: No Vision needs: Yes Telehealth Telehealth Telehealth Platform: Telephone Location of provider rendering services: practice address Location of patient: address on file Patient Identification confirmed using: Name, : Yes Telehealth method: voice only Patient verbally consented to treatment: Yes Patient verbally consented to billing insurance company: Yes Patient informed of any privacy concerns related to visit: Yes Minutes spent on Phone/Video with Pt.: 30 Assessment & Plan Assessment & Plan (1) Diaphragmatic hernia: Code(s): K44.9 - Diaphragmatic hernia without obstruction or gangrene Category: Medical Qualifiers: Obstruction and gangrene presence: without obstruction or gangrene Qualified Code(s): K44.9 - Diaphragmatic hernia without obstruction or gangrene Plan: We discussed that the surgery would be performed laparoscopically with 5 small incisions. She would stay overnight and be discharged home the next day most likely. We did discuss that she would have to be on a specific diet plan for the first 3 months and it is critical for the healing of the hernia to follow it exactly. We also discussed that it is not mandatory to repair the hernia as long as she has good control of her symptoms with the daily use of Omperazole and she does not mind taking it. We did discuss also that the hernia will not improve on its own and it may be either stay stable overtime or it may increase in size and create more symptoms that may force her to repair it at a later stage. The patient and the daughter had no other questions and asked to have some time to consider the two options (surgery vs. observation) and she will get back to me with her decision.
== END 2024-09-13 18:39 | disposition home or self-care (01) ==
LOC: HO.HBS 11:25
PROVIDERS: PCP Internal Medicine; Visit Provider Surgery
DX: K44.9 Diaphragmatic hernia without obstruction or gangrene (principal)
CPT/HCPCS: 99214

== ENCOUNTER → 2024-09-13 11:25 | Outpatient (BNVA) | payer MEDICAID, SELFPAY | PROVIDERS: PCP Internal Medicine; Visit Provider Surgery ==

== ENCOUNTER 2024-10-11 08:07 | Outpatient (AMB) | payer MEDICAID, SELFPAY ==
--- NOTE | 2024-10-11 11:47 | A.OFFVIS_ITS ---
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*: Details: Start time: 11.33am, End time: 12.03pm ?I spent 25 minutes speaking with the patient on the phone plus an additional 5 minutes reviewing and updating records for a total of 30 minutes [facility] Medical History (Updated 05/20/24 @ 16:51 by CAREN Alexander) Obesity due to excess calories Pre-op examination Diaphragmatic hernia Epigastric discomfort Change in mole Skin cancer screening Abdominal discomfort Abnormal abdominal ultrasound Encounter for general adult medical examination with abnormal findings Difficulty hearing Hypothyroidism Fatty liver Dyspepsia Surgical History H/O colonoscopy H/O esophagogastroduodenoscopy History of laryngoscopy Hx of cholecystectomy Family History Father Myocardial infarction Mother Emphysema, unspecified Son No problems noted. Daughter No problems noted. Social History Housing: House Patient Tobacco Use Status: Never used Tobacco e-Cigarette/Vaping Use: Never Used Second Hand Smoke Exposure: No service: No Current occupational status: retired Cognitive needs: No Hearing needs: No Vision needs: Yes Telehealth Telehealth Telehealth Platform: Telephone Location of provider rendering services: practice address Location of patient: address on file Patient Identification confirmed using: Name, : Yes Telehealth method: voice only Patient verbally consented to treatment: Yes Patient verbally consented to billing insurance company: Yes Patient informed of any privacy concerns related to visit: Yes Minutes spent on Phone/Video with Pt.: 30 Assessment & Plan Assessment & Plan (1) Diaphragmatic hernia: Code(s): K44.9 - Diaphragmatic hernia without obstruction or gangrene Category: Medical Qualifiers: Obstruction and gangrene presence: without obstruction or gangrene Qual ified Code(s): K44.9 - Diaphragmatic hernia without obstruction or gangrene Plan: 1. We discussed the potential etiology of the hernia that could be of traumatic etiology worsened by his weight. We discussed the details of the diaphragmatic hernia repair and the potential technical challenges such as being able to achieve enough mobilization of the esophagus back in the abdomen and being able to close the diaphragmatic muscle (crura) primarily with sutures. We also discussed the possibility of using a biologic mesh to close the hernia defect if the crura cannot be adequately re-approximated primarily with sutures. We also discussed the option of doing a gastropexy or a fundoplication to prevent postoperative reflux and prevent hernia recurrence. As we discussed, I favor the gastropexy as the fundoplication can cause several distrurbing symptoms such as gas-bloating, flatulence, inability to burp which can be bothersome to patients especially for him with a history of IBS. Also we discussed the complexity of a potential hernia recurrence in association with a hernia recurrence. He was in agreement not to have a fundoplication. We also discussed that after surgery, he will need to be on a liquid diet with protein shakes the first week. The second week will add protein bars and soft foods and after the third week we will introduce small amounts of regular food. The transition to normal eating habits will take about 6 weeks which is the time required for the repair to heal completely. 2. Preop prescriptions were provided and explained the purpose of each one. Need to be purchased preop. Start Pantoprazole now as you get it from the pharmacy and stop the Omeprazole,1 pill per day. The Sucralfate and Zofran are for after surgery as needed. 3. Bowel prep: please do 7 packets ?of Miralax mixing each one with a an 8oz glass of water, crystal light, gatorade zero, or propel ?on 10/18/24 and the same amount on 10/19/24. The Miralax you begin with one packet at a time in 8oz water or crystal light, gatorade zero, or propel ?as early in the day as you can and you do them back to back until you finish them. Continue the protein shakes during ?the bowel prep. 4. Needs to purchase 1oz medicine cups . 5. Needs to purchase Children's liquid Tylenol for postop pain control. 6. Avoid aspirin, motrin, Advil, Aleve, Meloxicam, Excedrin, Ibuprofen, Naproxyn. Tylenol is OK. 7. She needs to purchase the Celebrate REBUILD protein shakes from the hospital's coffee shop. 8. Will do basic preop blood work-up any day between Friday10/12/24 and Friday10/15/24 fasting for 12 hours and is scheduled to see the Anesthesiologist prior to the day of surgery. 9. Importance of adherence to postop folllow-up and recommendations was underscored and she understands that. 10. Stop food and bars as of tomorrow 10/12/24 and continue with 4 CELEBRATE REBUILD protein shakes (ONE scoop EACH in 8oz almond milk) at 7am-9am, 10am- 12pm, 1pm-3pm, 4pm-6pm and one more CELEBRATE REBUILD protein shake with TWO scoops in 8oz of almond milk at 7pm-9pm 11. No soups, broths or V8 12. The patient's?medical?history has been reviewed and they are considered low risk for post op DVT and therefore DVT prophylaxis is not considered necessary. Travel after surgery was reviewed. The patient has not disclosed any travel plans during the first 30 days after surgery and they have been advised that within the first 30 days after surgery any bus, plane, train or car travel over 2 hours in duration is contraindicated due to the possibility of developing blood clots from immobility. Any travel, needs to include periods of ambulation of 10 minutes in duration every 2 hours.? Patient was instructed to discuss any plans for travel during this period with their bariatric surgeon.? 13. Please take at the day of surgery the following medications: Lisinopril if the blood pressure that day is high enough to justify it based on the parameters at the previous bullet point. 14. Absolutely no smoking or vaping, or marijuana until the surgery and for at least the first 4 weeks. Only nicotine patches are allowed. 15. Avoid any steroids by mouth for any reason. Let me know if someone prescribes them to you Orders: Orders Comprehensive Met. Panel Today K44.9 - Diaphragmatic hernia without obstruction or gangrene, K76.0 - Fatty (change of) liver, not elsewhere classified Hemoglobin A1c Today K44.9 - Diaphragmatic hernia without obstruction or gangrene, K76.0 - Fatty (change of) liver, not elsewhere classified Lipid Panel Today K44.9 - Diaphragmatic hernia without obstruction or gangrene, K76.0 - Fatty (change of) liver, not elsewhere classified Type and Screen Today K44.9 - Diaphragmatic hernia without obstruction or gangrene, K76.0 - Fatty (change of) liver, not elsewhere classified Partial Thromboplastin Time Today K44.9 - Diaphragmatic hernia without obstruction or gangrene, K76.0 - Fatty (change of) liver, not elsewhere classified Vitamin D 25-OH Total Today K44.9 - Diaphragmatic hernia without obstruction or gangrene, K76.0 - Fatty (change of) liver, not elsewhere classified Complete Blood Count Auto Diff Today K44.9 - Diaphragmatic hernia without obstruction or gangrene, K76.0 - Fatty (change of) liver, not elsewhere cl assified Ferritin Today K44.9 - Diaphragmatic hernia without obstruction or gangrene, K76.0 - Fatty (change of) liver, not elsewhere classified Zinc Today K44.9 - Diaphragmatic hernia without obstruction or gangrene, K76.0 - Fatty (change of) liver, not elsewhere classified IRON PROFILE Today K44.9 - Diaphragmatic hernia without obstruction or gangrene, K76.0 - Fatty (change of) liver, not elsewhere classified TSH reflex Free T4 Today K44.9 - Diaphragmatic hernia without obstruction or g angrene, K76.0 - Fatty (change of) liver, not elsewhere classified Vitamin A Today K44.9 - Diaphragmatic hernia without obstruction or gangrene, K76.0 - Fatty (change of) liver, not elsewhere classified Prothrombin Time INR Today K44.9 - Diaphragmatic hernia without obstruction or gangrene, K76.0 - Fatty (change of) liver, not elsewhere classified Vitamin B1 Today K44.9 - Diaphragmatic hernia without obstruction or gangrene, K76.0 - Fatty (change of) liver, not elsewhere classified Vitamin B12 Today K44.9 - Diaphragmatic hernia without obstruction or gangrene, K76.0 - Fatty (change of) liver, not elsewhere classified C Reactive Protein Today K44.9 - Diaphragmatic hernia without obstruction or gangrene, K76.0 - Fatty (change of) liver, not elsewhere classified Insulin Today K44.9 - Diaphragmatic hernia without obstruction or gangrene, K76.0 - Fatty (change of) liver, not elsewhere classified Medications: New ondansetron Only take one every 12 hours as needed if you have nausea 4 mg PO Q12H 20 tabs 0RF nausea and vomiting R11.0 - Nausea polyethylene glycol 3350 Mix each measuring cup with 8oz of water, Crystal light, or Gatorade zero, or Propel and do 7 measuring cups on 10/18/24 and another 7 measuring cups on 10/19/24 17 grams PO DAILY 238 grams 0RF Z01.818 - Encounter for other prepro cedural examination pantoprazole 40 mg PO DAILY 90 tabs 0RF K21.9 - Gastro-esophageal reflux disease without esophagitis sucralfate 10 mL PO BID 600 mL 2RF K21.9 - Gastro-esophageal reflux disease without esophagitis
[2024-10-11 11:50] VITALS: BMI 31.1
== END 2024-10-11 12:04 | disposition home or self-care (01) ==
LOC: HO.HBS 08:07
PROVIDERS: PCP Internal Medicine; Visit Provider Surgery
DX: K44.9 Diaphragmatic hernia without obstruction or gangrene (principal)
CPT/HCPCS: 99214

== ENCOUNTER 2024-10-12 08:06 | Outpatient (REF) | payer MEDICAID, SELFPAY ==
[2024-10-12 09:06] LABS: MANUAL DIFF FLAG NO
[2024-10-12 09:12] LABS: Basophils Percent Auto 0.5 % (0-2); Eosinophils Absolute Auto 0.1 X10*3/uL (0.0-0.4); Eosinophils Percent Auto 1.3 % (0-4); Hematocrit 38.8 % (37.0-47.0); Hemoglobin 13.1 g/dl (12.0-16.0); Imm Gran Abs Auto 0.02 X10*3/uL (0.00-0.03); Imm Gran Pct Auto 0.3 % (0.0-0.4); Lymphocytes Absolute Auto 1.9 X10*3/uL (1.2-4.9); Lymphocytes Percent Auto 30.8 % (20-40); Mean Corpuscular HGB Conc 33.8 g/dl (31.0-35.0); Mean Corpuscular Hemoglobin 30.5 pg (27.0-33.0); Mean Corpuscular Volume 90.2 fL (80.0-98.0); Mean Platelet Volume 10.2 fL (9.4-12.3); Monocytes Absolute Auto 0.4 X10*3/uL (0.1-1.2); Monocytes Percent Auto 6.4 % (2-11); Neutrophils Absolute Auto 3.8 x10*3/uL (2.0-8.3); Neutrophils Percent Auto 60.7 % (45-73); Platelet Count 246 X10*3/uL (160-400); Red Cell Distribution Width 13.7 % (11.0-16.0); White Blood Count 6.3 X10*3/uL (4.8-10.8)
[2024-10-12 09:17] LABS: Prothrombin Time 11.2 SEC (10.9-12.4)
[2024-10-12 09:20] LABS: Partial Thromboplastin Time 25.2 SEC (26.0-36.8)
[2024-10-12 09:35] LABS: Estimated Average Glucose 120 mg/dL; Hemoglobin A1C 136.3889 umol/L; Hemoglobin A1c % 5.8 % (<6.0)
[2024-10-12 09:39] LABS: Alanine Aminotransferase 24 U/L (0-31); Alkaline Phosphatase 78 U/L (39-117); Anion Gap 11 (12-20); Aspartate Amino Transferase 23 U/L (5-31); Bilirubin Total 0.6 mg/dL (0.0-1.0); Blood Urea Nitrogen 15 mg/dL (9-16); C Reactive Protein 0.15 mg/dL (< or = 0.50); Carbon Dioxide 28 mmol/L (22-29); Chloride 107 mmol/L (96-108); Cholesterol 206 mg/dL (<200); Estimated Glomerular Filt Rate > 60; Glucose Random 88 mg/dL (60-115); HDL Cholesterol 60 mg/dL (>40); Iron 97 mcg/dL (30-160); LDL Cholesterol Calculated 114 mg/dL (<100); Percent Iron Saturation 34 % (15-50); Potassium 4.6 mmol/L (3.3-5.1); Sodium 141 mmol/L (135-145); Total Iron Binding Capacity 286 mcg/dL (228-428); Total Protein 7.4 g/dL (6.5-8.0); Triglycerides 160 mg/dL (<150); Unsaturated Iron Binding 189 ug/dL
[2024-10-12 09:58] LABS: Vitamin B12 435 pg/mL (200-900)
[2024-10-12 10:10] LABS: Ferritin 87 ng/mL (10-250); TSH reflex Free T4 3.85 uIU/mL (0.32-4.0)
[2024-10-12 10:47] LABS: Insulin 6 uU/mL (2-29)
[2024-10-15 04:43] LABS: Zinc 76 mcg/dL (60-130)
[2024-10-15 13:58] LABS: Vitamin A 62 mcg/dL (38-98)
[2024-10-20 15:44] LABS: Vitamin B1 10 nmol/L (8-30)
== END 2024-10-12 08:07 | disposition home or self-care (01) ==
LOC: HO.LAB 08:06
PROVIDERS: PCP Internal Medicine; Visit Provider Surgery
DX: K44.9 Diaphragmatic hernia without obstruction or gangrene (principal); K76.0 Fatty (change of) liver, not elsewhere classified
CPT/HCPCS: 36415; 80053; 80061; 82306; 82607; 82728; 83036; 83525; 83540; 84425; 84443; 84590; 84630; 85025; 85610; 85730; 86140

== ENCOUNTER 2024-10-20 08:23 | Outpatient (BNV) | payer MEDICAID, SELFPAY | END 2024-10-20 13:14 | PROVIDERS: Admitting Provider Surgery; PCP Internal Medicine; Visit Provider Internal Medicine Cardiovascular Disease | DX: K44.0 Diaphragmatic hernia with obstruction, without gangrene (principal); Z48.812 Encounter for surgical aftercare following surgery on the circulatory system | CPT/HCPCS: 93010 ==

== ENCOUNTER 2024-10-20 08:23 | Inpatient (IN) | payer MEDICAID, SELFPAY ==
[2024-10-18 08:50] VITALS: BMI 31.1
[2024-10-20] VITALS (15 sets, daily range): BP systolic 113–136; BP diastolic 61–77; PULSE 70–94; RESP 12–17; TEMP 36.1–37.1; O2SAT 93–97; BMI 28.6
[2024-10-20] MEDS: Lactated Ringers 1,000 ML 999 ML IV (09:16)
[2024-10-20] MEDS: Aprepitant 32 MG/4.4 ML VIAL IVPUSH (09:16)
[2024-10-20] MEDS: Lactated Ringers 1,000 ML 80 ML IVCONT (09:20)
--- NOTE | 2024-10-20 10:21 | MHC.SHP ---
Pre-Procedural Eval Section A - 24 Hr Update-Section A only Date of Service: 10/20/24 The patient is an INPATIENT: Yes The patient has been examined within 24 hours of the surgical procedure. The History & Physical has been completed within 30 days and I have reviewed it.: Yes Section B - Complete if H&P > 30 days Chief Complaint: Diaphragmatic hernia Relevant Family History (Specify if Yes): No Relevant Social History: None Present Medications: None Medical History: No relevant PMH History of Previous Operations: No relevant previous surgery Allergies: Allergies Allergy/AdvReac Type Severity Reaction Status Date / Time No Known Allergies Allergy Verified 10/20/24 08:39 [No Known Allergies*] Review of Systems Sugical H&P ROS: Negative: Constitution, Cardiovascular, Respiratory, Neurological, Psychiatric, Hem-Onc, Allergic/Immunologic, Gastrointestinal, Genitourinary, Musculoskeletal, Integumentary, Endocrine and Eyes/Ears/Nose/Throat Exam Surgical H&P Exam: Normal: HEENT, Normal: Heart, Normal: Lungs, Normal: Extremities, Normal: Abdomen, Normal: Skin and Normal: Neurological Plan Diagnosis/Plan: Unchanged I have reviewed the history and physical and performed a pertinent physical examination on my patient. No changes have occurred unless specified. Time Spent With Patient Time: Total time managing care of this patient today ____ minutes.
--- NOTE | 2024-10-20 10:29 | PM.OP ---
Brief Operative Note Date of Service: 10/20/24 Pre-op diagnosis: Diaphragmatic hernia Post-op diagnosis: same Procedure: Date of Service: 10/20/2024 Pre-op diagnosis: Diaphragmatic hernia Post-op diagnosis: same (Giant paraesophageal hernia & abdominal adhesions) Procedure: Procedure: COMORBIDITIES: GERD, diaphragmatic hernia, hyperlipidemia, anxiety, depression, hypertension, knee pain ?INDICATIONS: The patient is a 74 year old female who was referred to me from Dr. Martinez for a diaphragmatic hernia and GERD confirmed by EGD. The patient is scheduled today for diaphragmatic hernia repair. Risks of recurrent hernia, dysphagia, persistent GERD, VTE, leak, infection and bleeding were discussed with the patient and he is in agreement with the plan. PROCEDURE: Esophago-gastroscopy, laparoscopic lysis of adhesions, laparoscopic repair of incarcerated diaphragmatic hernia and laparoscopic gastropexy. DESCRIPTION OF PROCEDURE: After informed consent was obtained from the patient, the patient was given preoperative antibiotics, and was transferred to the operating room. After successful induction of general anesthesia, pneumatic compression devices were placed on both lower extremities. An upper endoscopy was performed next. The oropharynx and upper esophagus appeared to be within normal limits. The stomach was entered and the scope was advanced all the way to the pylorus.? After all fluid and air were suctioned and the stomach was fully decompressed, the scope was withdrawn and secured in the mid esophagus. The patient was then prepped and draped in the usual sterile manner. Abdominal access was established at the right upper quadrant with the Yanira technique. A 12 mm blunt trocar was inserted and the abdomen was insufflated with CO2 to a pressure of 15 mmHg. Following that additional ports were placed, specifically two 5 mm Versi-step ports to the left upper and one 5 mm Versi-step to the right upper quadrant. 1% lidocaine plain was used to infiltrate all port sites as well as all fascia defects. Following that, the patient was placed in a steep reverse Trendelenburg position. An additional 5 mm port was placed to the right flank for the Mediflex retractor that was used to retract the left lobe of the liver. There was a giant paraesophageal hernia with about 1/3 of the stomach herniated into the chest next to the esophagus. I then opened the gastrocolic ligament between the transverse colon and the greater curvature of the stomach with the ultrasonic device to enter the lesser sac and facilitate the ligation of the short gastric vessels. I started at at the upper third along the greater curvature and using the Thunderbeat, all attachments were divided. There was an obvious significant-sized paraesophageal hiatal hernia. The stomach was incarcerated into the mediastinum with multiple thick adhesions. Mobilization of the stomach was very difficult and required tedious and careful dissection of the proximal short gastric vessels. I continued dissecting along the hiatus toward the left akanksha into the mediastinum mobilizing the hernia sac from the mediastinum. The esophagus was carefully dissected off the aorta. The pleura spaces were not violated in either side. The pars flaccida was opened. It was actually herniated into the hernia defect. The vena cava was not dilated and it was carefully protected. I then continued by dissecting even further into the posterior retro-esophageal space all the way to the angle of His. I continued to mobilize the esophagus into the mediastinum circumferentially. The esophagus was densely adhrent to the aorta and the majority of these adhesions were mobilized. Both vagal nerves were seen and preserved. With extensive circumferential dissection into the mediastinum, I was able to bring the GE junction at least 3cm below the crura. I closed the hernia defect with five interrupted #0 Surgidac sutures using the Endo Stitch device, three of which were placed posterior and two of which anterior to the esophagus. The bites were carefully placed to include both the ventral and dorsal aspect of the two crura, advancing slightly more at the left akanksha as it was located more diagonally than the right. ? A gastropexy was then performed in order to prevent postoperative GERD and partial gastric volvulus. Several interrupted 2.0 Surgidac sutures were placed between the greater curvature of the dissected stomach and the previously divided greater omentum and gastro-colic ligament using the Endo-Stitch device. ?An upper endoscopy was performed. There was no narrowing at the GE junction or any esophageal injury. The scope was easily advanced all the way to the pylorus which was clearly visualized. There was no narrowing anywhere. I confirmed that the GE junction was 3cm intra-abdominally. At that point the gastroscope was withdrawn from the patient?s mouth while we were decompressing the bowel and the stomach from any remaining air. I looked into the lesser sac to see how the stomach was situating and it was situating well. There was no bleeding from the, spleen, or short gastric vessels. The Mediflex retractor was removed, and the undersurface of the liver was inspected and there was no bleeding. The patient was placed in supine position. Then 30cc of Ropivacaine plain with 10 mg of Dexamethasone were used to infiltrate the fascial closure as well as all skin incisions. At this point, the abdomen was deflated, all ports were removed under direct vision, and no bleeding was noted from any of the port sites. The skin incisions were irrigated with saline and were closed with 4-0 absorbable monofilament sutures. Steri-Strips and OpSites were used to cover all incisions. The patient was extubated and was transferred in stable condition to the recovery room for further care. I was present and performed all mcnair parts of the procedure. Mr. Cartwright was the field research assistant. There were no residents to assist with this case. Ted Hamm MD, PhD, FACS Surgeon: Tong Hamm MD Anesthesia: GETA, local and other (TAP block) Was an Rn Documentation Specialist used for this Procedure?: No Rn Documentation Specialist: Jake Cartwright Estimated blood loss (mL): 10 IV fluids (mL): 2,500 Urine output (mL): 0 (No Baum to record output) Pathology: none sent Condition: stable Disposition: PACU
--- NOTE | 2024-10-20 10:32 | P.PNGS_ITS ---
Subjective Subjective Date of Service: 10/21/24 Interval history: Feels well. Mild incisional pain. She is tolerating phase 1 bariatric diet Physical Exam 2 Vital Signs: Vital Signs: Last Vital Signs Temp 98.8 F 10/20/24 08:58 Pulse 83 10/20/24 08:58 Resp 16 10/20/24 08:58 BP 126/66 10/20/24 08:58 Pulse Ox 96 10/20/24 08:58 O2 Del Method Room Air 10/20/24 08:58 BMI result Body Mass Index 28.6 GI: Inspection: Yes normal to inspection, Yes incision (clean, dry and intact) and Yes obesity Palpation (GI): Soft to palpation Extrem: Right lower extremity: normal to inspection (no calf tenderness) L eft lower extremity: normal to inspection (no calf tenderness) Objective Data Active Medications Lactated Ringer's (Lr) 1,000 mls @ 80 mls/hr IVCONT .[id number] JUSTINE Last Admin: 10/20/24 09:20 Dose: 80 mls/hr Documented By: RICARDO Acetaminophen (Ofirmev) 1,000 mg in 100 mls @ 400 mls/hr IV PREOP ONE Stop: 10/20/24 10:43 Labs 10/21/24 06:15 10/21/24 06:15 Procedures Date of Service Date of Service: 10/21/24 Progress Note: A&P Assessment and plan (1) Diaphragmatic hernia: Status: Acute Assessment and Plan: s/p laparoscopic lysis of adhesions, diaphragmatic hernia repair and gastropexy Doing well Will check am labs and if OK the patient will be discharged home (2) Mild obstructive sleep apnea: Status: Acute (3) Hypothyroidism: Status: Acute (4) Fatty liver: Status: Acute (5) Chronic GERD: Status: Acute (6) Knee pain: Status: Acute (7) Congenital intra-abdominal adhesions: Status: Acute Time Spent With Patient Time: Total time managing care of this patient today ____ minutes. Quality Stroke Does the patient have a stroke diagnosis?: No VTE Prior VTE?: No VTE Risk Level:: Surgical - moderate VTE Device Contraindication: N/A - Device Ordered VTE Drug Contraindication: Treatment Not Indicated
[2024-10-20] MEDS: ceFAZolin Sodium/Dextrose,Iso 2 GM/50 ML PIGGYBACK IV ×2 (10:44→17:36)
[2024-10-20] MEDS: Acetaminophen 1,000 MG/100 ML PIGGYBACK 400 MG IV (12:15)
--- NOTE | 2024-10-20 13:12 | PM.DS ---
DS: Providers Provider Date of Service: 10/21/24 Date of admission: 10/20/24 08:23 Date of discharge: 10/21/24 Primary care physician: Torsten Garza MD DS: Diagnosis Discharge Diagnosis (1) Diaphragmatic hernia: Status: Acute (2) Mild obstructive sleep apnea: Status: Acute (3) Hypothyroidism: Status: Acute (4) Fatty liver: Status: Acute (5) Chronic GERD: Status: Acute (6) Knee pain: Status: Acute (7) Congenital intra-abdominal adhesions: Status: Acute DS: Summary Hospital Course Hospital Course: ADMITTING DIAGNOSIS: gerd, diaphragmatic hernia, ? DISCHARGE DIAGNOSIS: same, s/p laparoscopic repair diaphragmatic hernia ? PAST SURGICAL HISTORY: cholecystectomy, eye surgery ? PROCEDURE: upper endoscopy, laparoscopic repair of diaphragmatic hernia ? DISCHARGE SUMMARY: ? History of Present Illness: ? The patient is a?74 year-old woman with a BMI of?28.6 kg/m2 and associated co-morbidities as described above. The patient had extensive work-up and was electively scheduled for laparoscopic, possible open repair of diaphragmatic hernia and gastropexy. Risks and complications of the surgery were discussed with the patient in advance, particularly the possibility of , pulmonary embolism, anastomotic leak, bleeding, bowel injury, GERD, cardiac, renal or pulmonary complications. The patient understood all the risks and was in agreement with the surgical plan. ? Hospital Course: ? The patient underwent an uneventful laparoscopic repair of diaphragmatic hernia with gastropexy on the day of admission. Postoperatively, the patient was transferred to the surgical floor. The patient received IV Acetaminophen and IV dilaudid for pain control. Patient was started on bariatric phase 1 diet POD #0. On postoperative day one, the patient was feeling well without nausea, vomiting, fevers, or tachycardia. The patient had some mild incisional pain and the abdomen was soft. ? On the morning of postoperative day one, the patient was continued on 1 ounce of water or ice every half hour. During the day, the patient did fairly well, having some incisional pain, but able to ambulate adequately and to tolerate liquids well. ? Since the patient is doing well, we decided that the patient was ready to be discharged. The patient was given instructions to follow-up with me next week and to call my office for any fever over 101, persistent abdominal pain, nausea, vomiting, GERD, symptoms of DVT such as calf tenderness, or leg swelling, or pulmonary embolism such as chest pain or shortness of breath. The patient was also instructed to drink 40-60 ounces of liquids per day using the 1-ounce cups. The patient had been given prescriptions for Tylenol for pain, Zofran prn for nausea, and pantoprazole and carafate previously. The patient was encouraged to ambulate and use the incentive spirometer. The patient was allowed to shower, but no baths, and encouraged to stay active at home. All of these instructions were given to the patient personally. All questions were answered and the patient understood all instructions, the instructions were also given to the patient in print. Time Attestation Total time managing care of this patient today: 25 mintues. Discharge Coordination Time (in mins): 25 Quality: Safe Use of Opioids Does Pt have an Active Cancer Diagnosis on the Problem List?: No Quality: Stroke Does the patient have a stroke diagnosis?: No Physical Exam Vital Signs: Vital Signs: Last Vital Signs Temp 98.8 F 10/20/24 08:58 Pulse 83 10/20/24 08:58 Resp 16 10/20/24 08:58 BP 126/66 10/20/24 08:58 Pulse Ox 96 10/20/24 08:58 O2 Del Method Room Air 10/20/24 08:58 BMI result Body Mass Index 28.6 DS: Data Data Completed and Pending Pending studies at discharge: Pending at discharge 10/20/24 12:45 Surgical [PTH] Routine Discharge Plan Discharge Anticipated Discharge Date/Time: 10/21/24 10:00 Patient Disposition: Home, Self-Care Discharge Diagnosis: s/p laparoscopic repair of diaphragmatic hernia Referrals: Torsten Garza MD [Primary Care Provider] - 1 Week Discharge Medications: Continued levothyroxine 25 mcg tablet 25 mcg PO DAILY@0600 sucralfate 100 mg/mL suspension 10 ml PO BID Qty: 600 2RF pantoprazole 40 mg tablet,delayed release (DR/EC) 40 mg PO DAILY Qty: 90 0RF ondansetron 4 mg tablet,disintegrating 4 mg PO Q12H Qty: 20 0RF Rx Instructions: Only take one every 12 hours as needed if you have nausea Discharge Orders: Discharge Order (Routine); Ordered 10/21/24 Ordered By: Tong Hamm Activity on Discharge: No heavy lifting Stand Alone Forms: Patient Portal Discharge page Print Language: Anguill[place] Care Plan Goals: improved gerd Health Concerns: diaphragmatic hernia Plan of Treatment: No tub baths, sex or returning to work until discussed at first post op appointment. No exercise, alcohol, tobacco or illegal drug use. Continue to use incentive spirometer hourly while awake. Walk in home for 5- 10 minutes every 2 hours during the first week. Follow all instructions in the bariatric handbook and call with any questions.Discharge Instructions 1. Please call your doctor or come back to the emergency room should any new symptoms arise. 2. You will receive a courtesy call from [facility] 24-48 hours after discharge. 3. Activity: abstain from alcohol, practice limited stair climbing, no bending, no driving, no exercise, no illicit substances, no lifting, no sex, no tub bath, no work. 4. Diet: continue as discussed with Dr. Hamm. 5. Dressing Change/Wound Care: Your incision is covered by clear bandages and guaze underneath. If the area is tender, you may apply an ice pack for short intervals (no more than 20 minutes on, followed by at least 20 minutes off). Do not apply heat. Do not use creams, lotions, or topical antibiotics unless instructed to do so by your surgeon. These can cause infection or allergic reaction. 6. Call your doctor if: - Your temperature exceeds 101.5 F - You experience excessive pain or swelling - You have an unexpected reaction to medication - You have excessive bleeding - You experience continued vomiting/nausea - Your incision begins to separate - Your incision shows signs of infection such as increased redness, swelling, excessive pain, heat, or drainage (light blood or clear fluid is normal) 7. General instructions: No lifting greater than 5 lbs for 1 week and not more than 20lbs the next 3?weeks. No driving until seen at the office in 5-7 days after surgery. If you do not move your bowels in the next 2 days, please tell?Dr. Hamm. Please walk around your home every hour or two to prevent blood clots from forming in your legs. You do not need to wake from sleeping to walk. Please sleep in a bed or couch to prevent kinking at the hips and knees. Please take your incentive spirometer (your lung senior technical editor) home with you and use it for the next few days to prevent pneumonia. You may shower, no hot tubs, baths or swimming pools.?Please follow the post op diet instructions you are?given by Dr Hamm? and text me daily at 5-6pm for an update.?If you have any issues or concerns or questions please communicate this to him via text.? The Celebrate shakes have all of the bariatric vitamins you need if you consume these shakes. If you are drinking other protein shakes, you will need to purchase the Celebrate multivitamins and calcium that are available in the hospital gift shop on the first floor of the [facility].??Do not take anything without first discussing with Dr Hamm. Please make sure you are consuming at least 40 ounces of fluids per day starting the?day AFTER your discharge from the hospital. Always drink 1-2 ml per minute using the 5ml?syringe. If you drink faster you may experience?bloating,?gas pain, burping, nausea or heartburn. In that case please slow down your pace and use the syringe to?understand better the?proper?pace and volume of drinking. Do not hesitate to contact the office with any questions at . The patient's medical history has been reviewed and they are considered low risk for post op DVT and therefore DVT prophylaxis is not considered necessary. Travel after surgery was reviewed. The patient has not disclosed any travel plans during the first 30 days after surgery and they have been advised that within the first 30 days after surgery any bus, plane, train or car travel over 2 hours in duration is contraindicated due to the possibility of developing blood clots from immobility. Any travel, needs to include periods of ambulation of 10 minutes in duration every 2 hours.? The patient was instructed to discuss any plans for travel during this period with their bariatric surgeon. Assessment: stable s/p laparoscopic repair diaphragmatic hernia
--- NOTE | 2024-10-20 13:14 | ECG_ITS ---
Test Reason : POST OP Blood Pressure : */* mmHG Vent. Rate : 75 BPM Atrial Rate : 75 BPM P-R Int : 134 ms QRS Dur : 74 ms QT Int : 396 ms P-R-T Axes : 21 -3 34 degrees QTcB Int : 442 ms Normal sinus rhythm Normal ECG When compared with ECG of 17-Dec-2018 10:25, No significant change was found Referred By: Selena Ibanez Electronically Signed By: AKHIL HUNTER MD
--- NOTE | 2024-10-20 14:35 | PHA.MEDREC ---
Pharmacy Consult ? Medication Reconciliation Pharmacy has reviewed the medication reconciliation completed by nursing.
[2024-10-20] MEDS: Lactated Ringers 1,000 ML 100 ML IVCONT (17:35)
[2024-10-20] MEDS: HYDROmorphone HCl 0.5 MG/0.5 ML SYRINGE 0.25 MG IVPUSH (17:36)
[2024-10-20] MEDS: 0.9 % Sodium Chloride Flush 3 ML SYRINGE IVFLUSH (17:39)
[2024-10-20] MEDS: Acetaminophen 1,000 MG/100 ML PIGGYBACK 16.7 MG IV ×2 (18:11→22:45)
[2024-10-20 19:39] LABS: Hematocrit 36.3 % (37.0-47.0); Hemoglobin 12.2 g/dl (12.0-16.0)
[2024-10-20 20:02] LABS: Anion Gap 13 (12-20); Blood Urea Nitrogen 16 mg/dL (9-16); Calcium 8.5 mg/dL (8.4-10.2); Carbon Dioxide 21 mmol/L (22-29); Chloride 108 mmol/L (96-108); Creatinine Clr Calc Pharmacy 62.1; Estimated Glomerular Filt Rate > 60; Glucose Random 144 mg/dL (60-115); Potassium 4.3 mmol/L (3.3-5.1); Sodium 138 mmol/L (135-145)
[2024-10-21 03:01] VITALS: BP 116/67; PULSE 70; RESP 18; TEMP 36.2; O2SAT 92
[2024-10-21] MEDS: Lactated Ringers 1,000 ML 100 ML IVCONT (03:07)
[2024-10-21] MEDS: Acetaminophen 1,000 MG/100 ML PIGGYBACK 16.7 MG IV (04:54)
[2024-10-21] MEDS: Levothyroxine Sodium 25 MCG TABLET PO (05:48)
[2024-10-21] MEDS: Pantoprazole Sodium 40 MG/10 ML VIAL IVPUSH (05:48)
[2024-10-21 06:29] LABS: MANUAL DIFF FLAG NO
[2024-10-21 06:34] LABS: Basophils Percent Auto 0.1 % (0-2); Hematocrit 33.3 % (37.0-47.0); Hemoglobin 11.2 g/dl (12.0-16.0); Imm Gran Abs Auto 0.06 X10*3/uL (0.00-0.03); Imm Gran Pct Auto 0.6 % (0.0-0.4); Lymphocytes Percent Auto 9.4 % (20-40); Mean Corpuscular HGB Conc 33.6 g/dl (31.0-35.0); Mean Corpuscular Volume 89.3 fL (80.0-98.0); Mean Platelet Volume 10.3 fL (9.4-12.3); Monocytes Absolute Auto 0.4 X10*3/uL (0.1-1.2); Monocytes Percent Auto 3.4 % (2-11); Neutrophils Percent Auto 86.5 % (45-73); Platelet Count 255 X10*3/uL (160-400); Red Blood Count 3.73 X10*6/uL (4.20-5.50); White Blood Count 10.4 X10*3/uL (4.8-10.8)
[2024-10-21 06:46] LABS: Anion Gap 12 (12-20); Blood Urea Nitrogen 16 mg/dL (9-16); Calcium 8.7 mg/dL (8.4-10.2); Carbon Dioxide 24 mmol/L (22-29); Chloride 106 mmol/L (96-108); Creatinine Clr Calc Pharmacy 65.6; Estimated Glomerular Filt Rate > 60; Glucose Random 121 mg/dL (60-115); Potassium 4.3 mmol/L (3.3-5.1); Sodium 138 mmol/L (135-145)
[2024-10-21 07:57] VITALS: BP 120/62; PULSE 73; RESP 16; TEMP 36.6
--- NOTE | 2024-10-21 08:19 | HO.POSTANES ---
Post Anesthesia Evaluation Post Anesthesia Evaluation Date of Service: 10/21/24 Vital Signs: Vital Signs Temp Pulse Resp BP Pulse Ox O2 Del Method 10/21/24 07:57 97.8 F 73 16 120/62 10/21/24 03:01 97.1 F 70 18 116/67 92 Room Air 10/20/24 23:27 97.5 F 70 16 121/61 95 Room Air Anesthesia: General Endotracheal-GETA Mental Status: Awake Pain Control: Satisfactory Nausea/Vomiting: None Hydration: Adequate Anesthesia-Related Issues: No Anes. Related Issues
--- NOTE | 2024-10-21 09:05 | MHC.CM.PN ---
DP: PT IS READY TO DC HOME, FAMILY AT BEDSIDE AND WILL TRANSPORT HOME
== END 2024-10-21 09:30 | disposition home or self-care (01) | DRG 220 ==
LOC: HO.SSSA 08:24 → HO.S3 14:31
PROVIDERS: Physician Assistant Surgical; Admitting Provider Surgery; PCP Internal Medicine; Visit Provider Surgery
PROC: 0BQT4ZZ Repair Diaphragm, Percutaneous Endoscopic Approach (ICD-10-PCS; principal; 2024-10-20 10:10)
DX: K44.0 Diaphragmatic hernia with obstruction, without gangrene (principal); K76.0 Fatty (change of) liver, not elsewhere classified; E03.9 Hypothyroidism, unspecified; G47.33 Obstructive sleep apnea (adult) (pediatric); K66.0 Peritoneal adhesions (postprocedural) (postinfection); Z79.890 Hormone replacement therapy; Z79.899 Other long term (current) drug therapy
CPT/HCPCS: 36415; 80048; 85014; 85018; 85025; 86850; 86900; 86901; 88304; 88305; 93005; A4649; C9145; J0131; J0690; J1100; J1171; J2003; J2250; J2405; J2470; J2704; J2795; J3010; J7120

== ENCOUNTER → 2024-10-20 08:23 | Outpatient (BNV) | payer MEDICAID, SELFPAY | PROVIDERS: Admitting Provider Surgery; PCP Internal Medicine; Visit Provider Surgery | DX: K44.9 Diaphragmatic hernia without obstruction or gangrene (principal); G47.33 Obstructive sleep apnea (adult) (pediatric); E03.9 Hypothyroidism, unspecified; K76.0 Fatty (change of) liver, not elsewhere classified; K21.9 Gastro-esophageal reflux disease without esophagitis; M25.569 Pain in unspecified knee; Q43.3 Congenital malformations of intestinal fixation | CPT/HCPCS: 43281; 99024; 99499 ==

== ENCOUNTER 2024-10-22 13:43 | Outpatient (REF) | payer MEDICAID, SELFPAY | END 2024-10-22 13:44 | disposition home or self-care (01) | LOC: HO.HAP 13:43 | PROVIDERS: Visit Provider Internal Medicine | DX: Z46.1 Encounter for fitting and adjustment of hearing aid (principal); H90.3 Sensorineural hearing loss, bilateral | CPT/HCPCS: V5266 ==

== ENCOUNTER 2024-10-28 15:13 | Outpatient (AMB) | payer MEDICAID, SELFPAY ==
--- NOTE | 2024-10-28 15:14 | MHC.OFFVISWM ---
VS Expanded 10/28/24 15:23 BP 114/61 Blood Pressure Location Lt brachial Blood Pressure Position Sitting Pulse 87 Pulse Oximetry 95 Height 5 ft 3 in Weight 154 lb BMI 27.3 Body Fat % 36.8 Body Fat Mass 56.6 Fat Free Mass 97.2 Visceral Fat Rating 10.0 Body Water % 44.3 Body Water Mass 68.2 Muscle Mass/Score 92.4 Basal Metabolic Rate/Score 1,320 Intake Visit Reasons: OV Hernia Repair 10/20/24 Domestic Technician Required: Yes Domestic Technician Services: Domestic Technician Present Domestic Technician Name: hospital cmi Allergies No Known Allergies [No Known Allergies*] Allergy (Verified 10/28/24 15:22) HPI Comments Details: Patient is a pleasant 74-year-old female who returns to the office today in follow-up. She underwent hiatal hernia repair on 10/20/2024. Weight today is 154 lb BMI is 27.3 no complaints of reflux at all, tolerating meal plan as directed by Dr. Hamm including celebrate rebuild shake, 1 scoop in 8 oz of low-fat milk at 8-10, 2-4, 7-9 Celebrate protein bar at 11-1 Dinner with 6 tbsp [place]an yogurt or 6 tbsp cottage cheese or 1 egg PFSH Medical History (Updated 10/20/24 @ 13:05 by Tong Hamm MD) Knee pain Diaphragmatic hernia Pre-op examination Change in mole Skin cancer screening Encounter for general adult medical examination with abnormal findings Epigastric discomfort Obesity due to excess calories Abdominal discomfort Difficulty hearing Abnormal abdominal ultrasound Hypothyroidism Fatty liver Dyspepsia Surgical History (Updated 10/28/24 @ 15:22 by MEETA Lopez) Hx of hernia repair H/O eye surgery H/O colonoscopy H/O esophagogastroduodenoscopy History of laryngoscopy Hx of cholecystectomy Family History Father Myocardial infarction Mother Emphysema, unspecified Son No problems noted. Daughter No problems noted. Social History Household Members: Children Housing: House Are you a primary career technology teacher to a significant other at home: No Do you presently have visiting nurse or other home services: No Patient Tobacco Use Status: Former Tobacco user Tobacco use type: Cigarette e-Cigarette/Vaping Use: Never Used Second Hand Smoke Exposure: No service: No Current occupational status: retired Cognitive needs: No Hearing needs: No Vision needs: Yes Physical Exam GI Inspection: Yes incision (Clean, dry, intact.) Assessment & Plan Assessment & Plan (1) Status post repair of paraesophageal diaphragmatic hernia: Code(s): Z98.890 - Other specified postprocedural states; Z87.19 - Personal history of other diseases of the digestive system Category: Surgical Plan: Eight days post hiatal hernia repair. Patient will continue to discuss with Dr. Hamm her meal plan. She was told to continue to wear her abdominal binder for the next 2 weeks with exercise and activity. She may resume use of the treadmill but avoiding abdominal exercises for 6 months. She has no further complaints of reflux whatsoever. We will have her return to the office in approximately 4 weeks.
[2024-10-28 15:23] VITALS: BP 114/61; PULSE 87; O2SAT 95; BMI 27.3
== END 2024-10-28 15:49 | disposition home or self-care (01) ==
LOC: HO.HBS 15:13
PROVIDERS: PCP Internal Medicine; Visit Provider Physician Assistant Surgical
DX: Z98.890 Other specified postprocedural states (principal); Z87.19 Personal history of other diseases of the digestive system
CPT/HCPCS: 99024

== ENCOUNTER → 2024-10-28 15:13 | Outpatient (BNVA) | payer MEDICAID, SELFPAY | PROVIDERS: PCP Internal Medicine; Visit Provider Physician Assistant Surgical | DX: Z48.815 Encounter for surgical aftercare following surgery on the digestive system (principal); Z98.890 Other specified postprocedural states | CPT/HCPCS: 99212 ==

== ENCOUNTER 2024-11-19 15:23 | Outpatient (AMB) | payer MEDICAID, SELFPAY ==
[2024-11-19 15:25] VITALS: BP 120/71; BMI 27.6
--- NOTE | 2024-11-19 15:25 | A.OFFVIS_ITS ---
Vital Signs 11/19/24 15:25 Height 5 ft 3 in Weight 156 lb BMI 27.6 BP 120/71 Blood Pressure Location Rt brachial Position Sitting Intake Visit Reasons: Follow up GERD Intake Note: Jocelyn returns in follow up of GERD. CC: Patient reports BMs about every 4 days because she is following a new diet with Dr. Hyde. She also reports that she recently had a diaphragmatic hernia repair with Dr. Hyde. Household Assistant Required: Yes Accompanied by: Self / Same As Patient Allergies No Known Allergies [No Known Allergies*] Allergy (Verified 11/19/24 15:26) HPI HPI Follow up GERD: Details: Assessment & Plan (1) Epigastric abdominal pain: Code(s): R10.13 - Epigastric pain Category: Medical (2) Tubular adenoma of colon: Comment: 04/2024 scope repeat 5 years Code(s): D12.6 - Benign neoplasm of colon, unspecified Category: Medical (3) Chronic GERD: Code(s): K21.9 - Gastro-esophageal reflux disease without esophagitis Category: Medical (4) Hearing impaired: Comment: Read slips Code(s): H91.90 - Unspecified hearing loss, unspecified ear Category: Medical Qualifiers: Hearing loss type: unspecified Laterality: bilateral Qualified Code(s): H91.93 - Unspecified hearing loss, bilateral (5) Constipation: Code(s): K59.00 - Constipation, unspecified Category: Medical Plan [place] # [facility] Live pt of [place] and reads lips. She is here today with a female family member who is supportive The procedure should be repeated in 5 years depending on the pts general health given her age. The procedure was well tolerated. The results were explained and the patient is agreeable to the follow-up interval as stated. The bowel pattern has returned to normal. Education was provided to tell any 1st degree relatives about their findings to be sure that they are screened by age 45. Educated that they will be put on a recall list when it is time for their repeat scope but should they move out of state or away from the hospital they will need to remember along with their primary to repeat the procedure in a timely fashion to avoid any adverse complications. She says she feels well with the omeprazole 20mg qd. I encourage her to be compliant with this as medication therapy as she does not have pain with this regimen. She will be going to [place] for vacation and will be back in Aug. She say Dr. Rubalcava and he ordered some imaging. He also stressed the big risk of the surgery and that medication may be a preferred way to manage it. 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 She had HH repair with Dr. Rubalcava and now she is doing well. Since we are no longer prescribing, she can continue to follow up with Dr. Rubalcava and her PCP Dr. Garza. prn [facility] Medical History Epigastric abdominal pain Chest pain Knee pain Diaphragmatic hernia Pre-op examination Change in [facility] Skin cancer screening Encounter for general adult medical examination with abnormal findings Epigastric discomfort Obesity due to excess calories Abdominal discomfort Difficulty hearing Abnormal abdominal ultrasound Hypothyroidism Fatty liver Dyspepsia Surgical History Hx of hernia repair H/O eye surgery H/O colonoscopy H/O esophagogastroduodenoscopy History of laryngoscopy Hx of cholecystectomy Family History Father Myocardial infarction Mother Emphysema, unspecified Son No problems noted. Daughter No problems noted. Social History Household Members: Children Housing: House Are you a primary child care associate teacher to a significant other at home: No Do you presently have visiting nurse or other home services: No Patient Tobacco Use Status: Former Tobacco user Tobacco use type: Cigarette e-Cigarette/Vaping Use: Never Used Second Hand Smoke Exposure: No service: No Current occupational status: retired Cognitive needs: No Hearing needs: No Vision needs: Yes Review of Systems Const Denies fatigue, Denies fever(s), Denies night sweats, Denies poor appetite and Denies weight loss ENT Denies dental pain, Denies dysphagia, Reports hearing loss, Denies mouth pain, Denies odynophagia, Denies throat swelling, Denies tongue swelling and Reports other (Dentition adequate) Card Reports no additional complaints Resp Reports no additional complaints GI Details: Denies abdominal pain, Denies melena, Denies bloating, Denies hematochezia, Denies constipation, Denies GI cramping, Denies dysphagia, Denies excessive flatus, Denies early satiety, Reports heartburn, Denies diarrhea, Denies nausea, Denies odynophagia, Denies vomiting and Denies hematemesis Skin/Breast Denies pruritus, Denies lesions, Denies rash and Denies jaundice Neuro Denies Abnormal speech present Endo Denies fatigue Aller/Immun Denies throat swelling and Denies tongue swelling Physical Exam Vital Signs: Last Vital Signs BP 120/71 11/19/24 15:25 BMI result Body Mass Index 27.6 Const General: cooperative, no acute distress, well developed and well groomed Nutritional Appearance: average body habitus and well nourished Orientation/consciousness: oriented to person, oriented to place and oriented to time Limitations: language barrier and other limitations HEENT Head: Yes normocephalic and Yes atraumatic Eyes General: appearance normal, both eyes and all related structures Pupils: Equal, round and reactive pupils present Neck Neck: Yes normal visual inspection and Yes no lymphadenopathy Thyroid: Thyroid normal Resp Effort & Inspection: normal respiratory effort and able to speak in complete sentences Auscultation: clear to auscultation bilaterally Cardio Rate: regular rate Rhythm: regular rhythm Heart sounds: Normal, physiologic split S2 sound present Peripheral pulses: radial pulses present and posterior tibial pulses present GI Inspection: No distended and No Abdominal panniculus present Palpation (GI): Soft to palpation, nontender, no guarding, not rigid and No hepatosplenomegaly present Percussion: Yes normal to percussion Auscultation: normal bowel sounds Rectal Exam - Female: deferred Skin General skin exam: no rashes or lesions noted, turgor normal, skin not dry, no jaundice, No spider nevi and no striae Rashes: no rashes Nails: normal Neuro General: oriented to person, oriented to place and oriented to time Cranial nerves: Yes Equal, round and reactive pupils present Speech: No Abnormal speech present Extrem General: Yes normal to inspection, No clubbing, No cyanosis and No edema Psych Appearance: grossly normal and well kempt Mental Status: mental status grossly normal Affect: normal affect Attitude: cooperative Thought process: Normal thought process present and not confabulating Thought content: Normal thought content present Insight: Good insight present (Psych) Judgement: Good judgement present (Psych) Assessment & Plan Assessment & Plan (1) Constipation: Code(s): K59.00 - Constipation, unspecified Category: Medical (2) Chronic GERD: Code(s): K21.9 - Gastro-esophageal reflux disease without esophagitis Category: Medical (3) Status post repair of paraesophageal diaphragmatic hernia: Code(s): Z98.890 - Other specified postprocedural states; Z87.19 - Personal history of other diseases of the digestive system Category: Surgical Plan [place] #V Live 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 She had HH repair with Dr. Rubalcava and now she is doing well. Since we are no longer prescribing, she can continue to follow up with Dr. Rubalcava and her PCP Dr. Garza. prn Coding Level of Care Code Est Pt Level 3 (28601) Diagnoses Constipation K59.00 Chronic GERD K21.9 Status post repair of paraesophageal diaphragmatic hernia Z98.890; Z87.19
--- OUTSIDE RECORDS SUMMARY | 2024-11-19 15:55 | XMS_ITS | Clinical Summary ---
Author Organization [address] [facility] Address [address] [place] [address] Phone Care Team Providers Care Greenskeeper Laborer Name Role Phone Physician, Pcp Unknown Primary Care Provider Shirley vailable Allergies No known active allergies Medications No known medications Encounters Date Type Department Care Team Description 11/05/2024 3:00 PM EDT Office Visit Orthopedic Surgery [facility] [address] [facility] [address] [place] [address] Maribell Elliott PA Mucous cyst of digit of hand (Primary Dx); Ganglion, right hand from Last 3 Months Social History Tobacco Use Types Packs/Day Years Used Date Smoking Tobacco: Never Assessed Comments Unknown Sex and Gender Information Value Date Recorded Sex Assigned at Not on file Legal Sex Female 10:47 PM EST Gender Identity Not on file Sexual Orientation Not on file Last Filed Vital Signs Vital Sign Reading Time Taken Comments Blood Pressure - - Pulse - - Temperature - - Respiratory Rate - - Oxygen Saturation - - Inhaled Oxygen Concentration - - Weight 73.9 kg (163 lb) 11/05/2024 3:09 PM EDT Height 162.6 cm (5' 4 ) 11/05/2024 3:09 PM EDT Body Mass Index 27.98 11/05/2024 3:09 PM EDT Plan of Treatment Health Maintenance Due Date Last Done Comments Zoster Vaccines (2 of 2) 06/08/2018 04/13/2018 Pneumococcal Vaccine: 50+ Years (2 of 2 - PCV) 09/10/2020 09/10/2019, 03/14/2018 COVID-19 Vaccine ( - season) 2024 07/15/2022, 07/30/2021, 10/26/2020, Additional history exists RSV Immunization Adult Patients (1 - 1-dose 75+ series) 2024 Colorectal Cancer Screening: Colonoscopy 11/01/2024 Depression Screening 11/01/2024 Falls Risk Assessment 11/01/2024 Hepatitis C Screening 11/01/2024 Osteoporosis Screening (Bone Density Screening) 11/01/2024 Social Influencers of Health Screening 11/01/2024 DTaP,Tdap,and Td Vaccines (3 - Td or Tdap) 09/10/2029 09/10/2019, 03/23/2018 Influenza Vaccine Completed 05/02/2024, , 04/23/2022, Additional history exists HIB Vaccines Aged Out No longer eligi ble based on patient's age to complete this topic HPV Vaccines Aged Out No longer eligi ble based on patient's age to complete this topic Hepatitis A Vaccines Aged Out No long er eligible based on patient's age to complete this topic Hepatitis B Vaccines Aged Out No long er eligible based on patient's age to complete this topic IPV Vaccines Aged Out No longer eligi ble based on patient's age to complete this topic MMR Vaccines Aged Out No longer eligi ble based on patient's age to complete this topic Meningococcal ACWY Vaccine Aged Out N o longer eligible based on patient's age to complete this topic Meningococcal B Vaccine Aged Out No l onger eligible based on patient's age to complete this topic RSV Immunization Patients Under 20 months Aged Out No longer eligible based on patient's age to complete this topic Varicella Vaccines Aged Out No longer eligible based on patient's age to complete this topic Procedures Procedure Name Priority Date/Time Associated Diagnosis Comments [place] ARTHROCENTESIS/ASPI RATION/INJECTION SMALL JOINT/BURSA WO U/S GUIDANCE Routine 11/05/2024 3:00 PM EDT Mucous cyst of digit of hand from Last 3 Months Results * [place] ARTHROCENTESIS/ASPIRATION/INJECTION SMALL JOINT/BURSA WO U/S GUIDANCE (11/05/2024 3:00 PM EDT) Narrative Maribell Elliott PA - 11/05/2024 3:00 PM EDT MIKEY Castrejon ? 11/05/2024 ??3:57 PM S Inj/Asp: R thumb IP Indications: pain Details: 18 G needle, dorsal approach Area was cleansed with Betadine and anesthetized with ethyl chloride. ?? 18-gauge needle inserted at the apex of mucous cyst at right thumb IP joint and clear gelatinous fluid was expressed with reduction in size of the cyst and Band-Aid placed. us Maribell JENSEN IN CLINIC/BEDSIDE ORDERABLES Final Result from Last 3 Months Insurance MEDICAID - [place] Care Teams Greenskeeper Laborer Relationship Specialty Start Date End Date Physician, Pcp Unknown PCP - General 11/01/24
== END 2024-11-19 16:16 | disposition home or self-care (01) ==
LOC: HO.HGI 15:23
PROVIDERS: PCP Internal Medicine; Visit Provider Nurse Practitioner
DX: K59.00 Constipation, unspecified (principal); K21.9 Gastro-esophageal reflux disease without esophagitis; Z98.890 Other specified postprocedural states; Z87.19 Personal history of other diseases of the digestive system
CPT/HCPCS: 99213

== ENCOUNTER → 2024-11-19 15:23 | Outpatient (BNVA) | payer MEDICAID, SELFPAY | PROVIDERS: PCP Internal Medicine; Visit Provider Nurse Practitioner | DX: K59.00 Constipation, unspecified (principal); K21.9 Gastro-esophageal reflux disease without esophagitis; R10.13 Epigastric pain; D12.6 Benign neoplasm of colon, unspecified; H91.93 Unspecified hearing loss, bilateral; Z87.19 Personal history of other diseases of the digestive system; Z98.890 Other specified postprocedural states | CPT/HCPCS: 99212 ==

== ENCOUNTER 2024-12-01 14:17 | Outpatient (AMB) | payer MEDICAID, SELFPAY ==
--- NOTE | 2024-12-01 14:19 | A.OFFPC_ITS ---
Vital Signs 12/01/24 14:24 Height 5 ft 3 in Weight 155 lb 8 oz BMI 27.5 BP 112/68 Blood Pressure Location Rt brachial Position Sitting Pulse 78 Pulse Source Pulse Oximeter Pulse Oximetry (%) 98 Oxygen Delivery Method Room Air Intake Visit Reasons: PE Allergies No Known Allergies [No Known Allergies*] Allergy (Verified 12/01/24 14:24) Medication List - Last Reconciled 12/01/24 by Torsten Garza MD docusate sodium (Colace) 100 mg PO DAILY levothyroxine 25 mcg PO DAILY@0600 pantoprazole 40 mg PO DAILY sucralfate 10 mL PO BID Tobacco use date assessed: 12/01/24 Fall risk assessment: No Falls in past year Last assessed Fall Risk: 12/01/24 Dental Screening Dental Screen Date: 12/01/24 Did you have a dental visit in the last 12 months?: Yes Did you have a dental problem in the last 6 months where you did not have access to dental care?: No Was dental information given to patient?: Patient has dentist HPI PE HPI Details History of Present Illness - The patient is a 74-year-old female pr esenting with the need for a physical examination. - Anemia: Labs performed in September showed slight anemia. It was noted that the patient may experience microscopic bleeding, potentially due to hemorrhoids. The patient is advised to take a multivitamin with iron as taking iron separately may exacerbate constipation. - Constipation: The patient experiences constipation and is on medications to manage this condition. . - Hiatal Hernia: The patient underwent s urgery for a hiatal hernia (also referred to as bariatric surgery) on October 28, 2024. Current status post-surgery is reportedly good. - Hypothyroidism: The patient has been o n levothyroxine, and thyroid function tests conducted in September were normal. Continuation of levothyroxine is advised. Health Maintenance - Tetanus vaccine administered in 2019. - Pneumonia vaccine given in 2019; a new Prevar given today. - Patient is due for a bone density test ; it is advised to schedule this test in conjunction with the upcoming mammogram. - Regular monitoring of anemia with mult ivitamin containing iron to prevent constipation. - Mammogram apt coming up - Colonoscopy up todate Medications - Levothyroxine: for hypothyroidism - Pantoprazole: for gastroesophageal ref lux disease (GERD) - Medications for constipation (specific s not mentioned) Diagnostic results - Labs: Anemia noted from September labs. - LDL levels: 114 mg/dL in September, deemed acceptable. - B12 levels: Normal. - Vitamin D levels: Normal. - Thyroid function: Normal as of September. Patient Instructions - Take the multivitamin with iron to hel p with anemia and avoid constipation from separate iron supplements. - Schedule the bone density test on the same day as the mammogram. - Continue taking levothyroxine as presc ribed. - pneumonia vaccine. given Review of Systems - General: No fever no chills - Neurological: No headaches no dizzin ess - Ear nose throat: No sore throat no hearing difficulty no ear pain - Cardiovascular: No syncope, no chest pain, no palpitations - Gastrointestinal: No nausea vomiting or diarrhea - Endocrine: No polyuria polydipsia no heat intolerance - Genitourinary: No dysuria - Skin: No new complaints Physical Exam General: Cooperative, healthy appearing, comfortable, no acute distress Orientation: Patient oriented x3 Head: Normal to inspection Ears: Within normal limit visually Nose: Normal external nose present Face and sinus: Normal facial exam Eyes: Appearance normal, extraocular movement intact pupils reactive Neck: Normal visual inspection and supple Respiratory: Normal respiratory effort and able to speak in complete sentences. Clear to auscultation, no stridor Cardiovascular: S1 and S2 RRR Breast exam Benign GI: Normal to inspection. Soft to palpation and nontender Skin: Turgor normal, no acute findings Neuro: Patient oriented x3, motor sensory intact, balance intact, tandem pass Extremities: Normal to inspection [facility] Medical History (Updated 12/01/24 @ 14:53 by Torsten Garza MD) Encounter for general adult medical examination with abnormal findings Epigastric abdominal pain Chest pain Knee pain Diaphragmatic hernia Pre-op examination Change in [facility] Skin cancer screening Epigastric discomfort Obesity due to excess calories Abdominal discomfort Difficulty hearing Abnormal abdominal ultrasound Hypothyroidism Fatty liver Dyspepsia Surgical History Hx of hernia repair H/O eye surgery H/O colonoscopy H/O esophagogastroduodenoscopy History of laryngoscopy Hx of cholecystectomy Family History Father Myocardial infarction Mother Emphysema, unspecified Son No problems noted. Daughter No problems noted. Social History Household Members: Children Housing: House Are you a primary health care technician to a significant other at home: No Do you presently have visiting nurse or other home services: No Patient Tobacco Use Status: Former Tobacco user Tobacco use type: Cigarette e-Cigarette/Vaping Use: Never Used Second Hand Smoke Exposure: No service: No Current occupational status: retired Cognitive needs: No Hearing needs: No Vision needs: Yes Questionnaire PHQ-9 Over the last 2 weeks, how often have you been bothered by any of the following problems? 1. Little interest or pleasure in doing things: not at all 2. Feeling down, depressed, or hopeless: not at all 3. Trouble falling or staying asleep, or sleeping too much: not at all 4. Feeling tired or having little energy: not at all 5. Poor appetite or overeating: not at all 6. Feeling bad about yourself - or that you are a failure or have let yourself or your family down: not at all 7. Trouble concentrating on things, such as reading the newspaper or watching television: not at all 8. Moving or speaking so slowly that other people could have noticed. Or the opposite - being so fidgety or restless that you have been moving around a lot more than usual: not at all 9. Thoughts that you would be better off or of hurting yourself in some way: not at all Total score: 0 Depression Screening Interpretation: Negative Depression Screening Done: Yes 11948 - PHQ-9 Billing: Yes Source: Developed by Drs. Alfred Goldberg, Michelle Garcia, Noe Nowak and colleagues, with an educational perfecto from [employer]. Thrive Questionnaire Date Thrive assessed: 12/01/24 I am a: Patient What is your living situation today?: I have a steady place to live Within the past 12 months, did the food you bought not last and you didn't have the money to get more?: Sometimes True Within the past 12 months, did you worry whether your food would run out before you got money to buy more?: Sometimes True Do you have trouble paying for medicines?: No Do you have trouble getting transportation to medical appointments?: No Do you have trouble paying your heating and electricity bill?: No Do you have trouble taking care of your child, family member or friend?: No Do you have trouble with day-to-day activities such as bathing, preparing meals, shopping, managing finances, etc.?: No Are you currently unemployed and looking for a job?: No Are you interested in more education?: No Please select the resources that you would like help with: Food Currently or been in a relationship where the following occur: No concerns reported THRIVE Score: 2 AUDIT C Alcohol Use Questionnaire (AUDIT-C) 1. How often do you have a drink containing alcohol?: Never 2. How many drinks containing alcohol do you have on a typical day when you are drinking?: 1 or 2 3. How often do you have six or more drinks on one occasion?: Less than monthly Total Score: 1 Score Reviewed/Action Taken: Yes KEYSHA-7 AMB Questionnaire KEYSHA-7 Date KEYSHA - 7 assessed: 12/01/24 Feeling nervous, anxious, or on edge: 0 = Not at all Not being able to stop or control worryin = Not at all Worrying too much about different things: 1 = Several days Trouble relaxin = Not at all Being so restless that it is hard to sit still: 0 = Not at all Becoming easily annoyed or irritable: 0 = Not at all Feeling afraid as if something awful might happen: 0 = Not at all Total KEYSHA-7 score (0-4 normal; 5-9 mild; 10-14 moderate; 15-21 severe): 1 Source: Developed by Drs. Alfred Goldberg, Michelle Garcia, Noe Nowak and colleagues, with an educational perfecto from [employer]. KEYSHA-7 Assessment Billing KEYSHA-7 Assessment Tool: KEYSHA-7 Assessment 75166 Physical exam (Primary Care) Vital Signs: Last Vital Signs Pulse 78 12/01/24 14:24 BP 112/68 12/01/24 14:24 Pulse Ox 98 12/01/24 14:24 Oxygen Delivery Method Room Air 12/01/24 14:24 BMI result Body Mass Index 27.5 Tobacco/Smoking Status: Tobacco use Status Tobacco use date assessed 12/01/24 12/01/24 14:25 Patient Tobacco Use Status Former Tobacco user 12/01/24 14:20 Tobacco use type Cigarette 12/01/24 14:20 e-Cigarette/Vaping Use Never Used 12/01/24 14:20 PHQ-9: PHQ-9 Score PHQ-9: Total score 0 12/01/24 14:53 Depression Screening Interpretation: Negative Thrive Assessment: Date of Thrive Assessment Date Thrive assessed 12/01/24 12/01/24 14:25 Currently or been in a relationship where the following occur: No concerns reported Immunizations pneumoc 20-dary conj-dip cr(PF) 0.5 mL IM syringe Performing Provider: Torsten Garza MD Performing Location: [facility] Administered by: Isacc Sullivan CMA on 12/01/24 14:53 Dose Route Admin Location Dispensed Lot Number Expiration Date ND Talent Buyer 0.5 mL IM Right Deltoid 0.5 mL [id number] 10/14/25 [id number] [email or web address] VIS Given Date VIS Provided VIS Publication Date 12/01/24 Single Vaccine 21 Eligibility Eligibility Date Funding Source Not [facility] Eligible 12/01/24 Private Coding Level of Care Code Est Pt Level 3 (53327) Est Pt Prev Care >65y(52838) Diagnoses Encounter for general adult medical examination with abnormal findings Z00.01 Menopausal state N95.1 Chronic GERD K21.9 Hypothyroidism, unspecified type E03.9 Hypothyroidism type: unspecified Immunizations incomplete Z28.39 Additional Codes KEYSHA-7 Assessment Billing - KEYSHA-7 Assessment Tool: KEYSHA-7 Assessment 99687 ([id number]) PHQ-9 - 16584 - PHQ-9 Billing: Yes ([id number]) Assessment & Plan Assessment & Plan (1) Encounter for general adult medical examination with abnormal findings: Code(s): Z00.01 - Encounter for general adult medical examination with abnormal findings Category: Medical (2) Menopausal state: Code(s): N95.1 - Menopausal and female climacteric states Category: Medical (3) Chronic GERD: Code(s): K21.9 - Gastro-esophageal reflux disease without esophagitis Category: Medical (4) Hypothyroidism: Code(s): E03.9 - Hypothyroidism, unspecified Category: Medical Qualifiers: Hypothyroidism type: unspecified Qualified Code(s): E03.9 - Hypothyroidism, unspecified (5) Immunizations incomplete: Code(s): Z28.39 - Other underimmunization status Category: Medical Plan History of Present Illness - The patient is a 74-year-old female presenting with the need for a physical examination. - Anemia: Labs performed in September showed slight anemia. It was noted that the patient may experience microscopic bleeding, potentially due to hemorrhoids. The patient is advised to take a multivitamin with iron as taking iron separately may exacerbate constipation. - Constipation: The patient experiences constipation and is on medications to manage this condition. . - Hiatal Hernia: The patient underwent surgery for a hiatal hernia (also referred to as bariatric surgery) on October 28, 2024. Current status post-surgery is reportedly good. - Hypothyroidism: The patient has been on levothyroxine, and thyroid function tests conducted in September were normal. Continuation of levothyroxine is advised. Health Maintenance - Tetanus vaccine administered in 2019. - Pneumonia vaccine given in 2019; a new Prevar given today. - Patient is due for a bone density test; it is advised to schedule this test in conjunction with the upcoming mammogram. - Regular monitoring of anemia with multivitamin containing iron to prevent constipation. - Mammogram apt coming up - Colonoscopy up todate Medications - Levothyroxine: for hypothyroidism - Pantoprazole: for gastroesophageal reflux disease (GERD) - Medications for constipation (specifics not mentioned) Diagnostic results - Labs: Anemia noted from September labs. - LDL levels: 114 mg/dL in September, deemed acceptable. - B12 levels: Normal. - Vitamin D levels: Normal. - Thyroid function: Normal as of September. Patient Instructions - Take the multivitamin with iron to help with anemia and avoid constipation from separate iron supplements. - Schedule the bone density test on the same day as the mammogram. - Continue taking levothyroxine as prescribed. - pneumonia vaccine. given Orders: Orders XR DEXA axial skeleton Today N95.1 - Menopausal and female climacteric states Pneumococcal 20 Immunization Today Z23 - Encounter for immunization Medications: New levothyroxine 25 mcg PO DAILY@0600 90 tabs 3RF
[2024-12-01 14:24] VITALS: BP 112/68; PULSE 78; O2SAT 98; BMI 27.5
--- OUTSIDE RECORDS SUMMARY | 2024-12-01 15:29 | XMS_ITS | Clinical Summary ---
Author Organization 175 [facility] Address [address] [place] [address] Phone Care Team Providers Care Riveter Pneumatic Name Role Phone Physician, Pcp Unknown Primary Care Provider Shirley vailable Allergies No known active allergies Medications No known medications Encounters Date Type Department Care Team Description 11/05/2024 3:00 PM EDT Office Visit Orthopedic Surgery [facility] [address] [facility] [address] [place] [address] Maribell Elliott PA Mucous cyst [...] Procedure Name Priority Date/Time Associated Diagnosis Comments [place] ARTHROCENTESIS/ASPI RATION/INJECTION SMALL JOINT/BURSA WO U/S GUIDANCE Routine 11/05/2024 3:00 PM EDT Mucous cyst of digit of hand from Last 3 Months Results * [place] ARTHROCENTESIS/ASPIRATION/INJECTION SMALL JOINT/BURSA WO U/S GUIDANCE (11/05/2024 [...] Months Insurance MEDICAID - [place] Care Teams Riveter Pneumatic Relationship Specialty Start Date End Date Physician, Pcp Unknown PCP - General 11/01/24
== END 2024-12-01 14:50 | disposition home or self-care (01) ==
LOC: HO.HMCC 14:18
PROVIDERS: PCP Internal Medicine; Visit Provider Internal Medicine
DX: Z00.00 Encounter for general adult medical examination without abnormal findings (principal); N95.1 Menopausal and female climacteric states; K21.9 Gastro-esophageal reflux disease without esophagitis; E03.9 Hypothyroidism, unspecified; Z28.39 Other underimmunization status; Z23 Encounter for immunization

== ENCOUNTER → 2024-12-01 14:17 | Outpatient (BNVA) | payer MEDICAID, SELFPAY | PROVIDERS: PCP Internal Medicine; Visit Provider Internal Medicine | DX: Z00.01 Encounter for general adult medical examination with abnormal findings (principal); Z23 Encounter for immunization; N95.1 Menopausal and female climacteric states; K21.9 Gastro-esophageal reflux disease without esophagitis; E03.9 Hypothyroidism, unspecified; Z28.39 Other underimmunization status | CPT/HCPCS: 90471; 90677; 96127; 99212; 99397 ==

== ENCOUNTER 2024-12-06 14:12 | Outpatient (AMB) | payer MEDICAID, SELFPAY ==
--- NOTE | 2024-12-06 14:17 | A.OFFVIS_ITS ---
VS Expanded 12/06/24 14:24 BP 119/72 Blood Pressure Location Rt brachial Blood Pressure Position Sitting Pulse 68 Pulse Source Pulse Oximeter Temp 97.0 F Temperature Source Temporal Artery Scan Pulse Oximetry 95 Oxygen Delivery Method Room Air Height 5 ft 2 in Weight 152 lb 6.4 oz BMI 27.9 Body Fat % 32.9 Body Fat Mass 50.0 Fat Free Mass 102.2 Visceral Fat Rating 10.0 Body Water % 47.2 Body Water Mass 71.8 Muscle Mass/Score 97.0 Basal Metabolic Rate/Score 1,368 Intake Visit Reasons: OV Hernia Repair 10/20/24 Medical Detail Representative Required: Yes Medical Detail Representative Services: Medical Detail Representative Present Medical Detail Representative Name: hospital cmi Allergies No Known Allergies [No Known Allergies*] Allergy (Verified 12/01/24 14:24) Medication List - Last Reconciled 12/06/24 by MIKEY Díaz docusate sodium (Colace) 100 mg PO DAILY levothyroxine 25 mcg PO DAILY@0600 pantoprazole 40 mg PO DAILY sucralfate 10 mL PO BID HPI Comments Details: Patient is a pleasant 74-year-old female who returns to the office today in follow-up. She underwent hiatal hernia repair on 10/20/2024. Weight today is 152.4 lb BMI is 27. no complaints of reflux at all. Tolerating meal plan as directed by Dr. Hamm including: celebrate rebuild shake, 1 scoop in 8 oz of low-fat milk at 8-10, 2-4, 7-9 Dinner with 5 forks protein and 5 forks veg. Drinking about 40 oz water Exercise plan: walking outside or treadmill daily. [facility] Medical History (Updated 12/01/24 @ 14:53 by Torsten Garza MD) Encounter for general adult medical examination with abnormal findings Epigastric abdominal pain Chest pain Knee pain Diaphragmatic hernia Pre-op examination Change in mole Skin cancer screening Epigastric discomfort Obesity due to excess calories Abdominal discomfort Difficulty hearing Abnormal abdominal ultrasound Hypothyroidism Fatty liver Dyspepsia Surgical History Hx of hernia repair H/O eye surgery H/O colonoscopy H/O esophagogastroduodenoscopy History of laryngoscopy Hx of cholecystectomy Family History Father Myocardial infarction Mother Emphysema, unspecified Son No problems noted. Daughter No problems noted. Social History Household Members: Children Housing: House Are you a primary health care aide to a significant other at home: No Do you presently have visiting nurse or other home services: No Patient Tobacco Use Status: Former Tobacco user Tobacco use type: Cigarette e-Cigarette/Vaping Use: Never Used Second Hand Smoke Exposure: No service: No Current occupational status: retired Cognitive needs: No Hearing needs: No Vision needs: Yes Physical Exam Const General: healthy appearing and no acute distress Resp Effort & Inspection: normal respiratory effort Auscultation: clear to auscultation bilaterally Cardio Rate: regular rate Rhythm: regular rhythm GI Auscultation: normal bowel sounds Extrem General: Yes normal to inspection Assessment & Plan Assessment & Plan (1) Status post repair of paraesophageal diaphragmatic hernia: Code(s): Z98.890 - Other specified postprocedural states; Z87.19 - Personal history of other diseases of the digestive system Category: Surgical Plan: Overall, patient is doing very well. She has no more reflux. She is following the meal plan as directed by Dr. Hamm but would like to transition off of protein shakes and she will communicate with him directly. We will have her return to the office in a proximally 1 month.
[2024-12-06 14:24] VITALS: BP 119/72; PULSE 68; TEMP 36.1; O2SAT 95; BMI 27.9
--- OUTSIDE RECORDS SUMMARY | 2024-12-06 14:26 | XMS_ITS | Clinical Summary ---
Author Organization 175 [facility] Address [address] [place] [address] Phone Care Team Providers Care Masonry Instructor Name Role Phone Physician, Pcp Unknown Primary Care Provider Shirley vailable Allergies No known active allergies Medications No known medications Encounters Date Type Department Care Team Description 11/05/2024 3:00 PM EDT Office Visit Orthopedic Surgery [facility] [address] [facility] [address] [place] [address] Maribell Elliott PA Mucous cyst [...] Procedure Name Priority Date/Time Associated Diagnosis Comments [place] ARTHROCENTESIS/ASPI RATION/INJECTION SMALL JOINT/BURSA WO U/S GUIDANCE Routine 11/05/2024 3:00 PM EDT Mucous cyst of digit of hand from Last 3 Months Results * [place] ARTHROCENTESIS/ASPIRATION/INJECTION SMALL JOINT/BURSA WO U/S GUIDANCE (11/05/2024 [...] Months Insurance MEDICAID - [place] Care Teams Masonry Instructor Relationship Specialty Start Date End Date Physician, Pcp Unknown PCP - General 11/01/24
== END 2024-12-06 14:58 | disposition home or self-care (01) ==
LOC: HO.HBS 14:12
PROVIDERS: PCP Internal Medicine; Visit Provider Physician Assistant Surgical
DX: Z98.890 Other specified postprocedural states (principal); Z87.19 Personal history of other diseases of the digestive system
CPT/HCPCS: 99024

== ENCOUNTER 2024-12-06 14:41 | Outpatient (REF) | payer MEDICAID, SELFPAY | END 2024-12-06 14:42 | disposition home or self-care (01) | LOC: HO.MAMMO 14:41 | PROVIDERS: PCP Internal Medicine; Visit Provider Internal Medicine | DX: Z12.31 Encounter for screening mammogram for malignant neoplasm of breast (principal) | CPT/HCPCS: 77063; 77067; 99212 ==

== ENCOUNTER → 2024-12-06 15:00 | Outpatient (BNV) | payer MEDICAID, SELFPAY | PROVIDERS: PCP Internal Medicine; Visit Provider Internal Medicine | DX: Z12.31 Encounter for screening mammogram for malignant neoplasm of breast (principal) | CPT/HCPCS: 77063; 77067 ==

== ENCOUNTER 2024-12-29 13:18 | Outpatient (REF) | payer MEDICAID, SELFPAY ==
--- NOTE | ~2024-12-29 | MM_ITS ---
EXAMINATION: DXA BONE DENSITY AXIAL HISTORY: N95.1 - Menopausal and female climacteric states TECHNIQUE: Pixel Velocity Dual energy absorptiometry (DEXA) of the lumbar spine, total left hip, and femoral neck was performed. COMPARISON: Comparison is made with the prior examination dated 09/28/2019. FINDINGS: The bone mineral density of the lumbar spine is 1.256, corresponding to a T-score of 0.6, and a Z-score of 2.2. This is indicative of normal bone mineral density. This represents a BMD change of -0.2% compared to the prior exam. This is not statistically significant. The bone mineral density of the left total hip is 0.905, corresponding to a T-score of -0.8, and a Z-score of 0.8. This is indicative of normal bone mineral density. This represents a BMD change of -6.0% compared to the prior exam. This is statistically significant. The bone mineral density of the left femoral neck is 0.833, corresponding to a T-score of -1.5, and a Z-score of -0.4. This is indicative of osteopenia. This represents a BMD change of -6.6% compared to the prior exam. FRACTURE RISK: The FRAX index suggests a ten year probability of major osteoporotic fracture of 6.4%, and of hip fracture 1.3%. MM/XR DEXA axial skeleton IMPRESSION: Based on bone mineral density, and according to World Health Organization (WHO) criteria, the diagnosis is consistent with osteopenia. All bone density values are in grams per centimeter squared (g/cm2). Statistically, 68% of repeat scans fall within 1 SD (+/- 0.010 g/cm2 for AP spine L1-L4) and 1 SD (+/- 0.012 g/cm2 for femur total) FRAX is a trademark of the [employer]'s [facility] [facility] Metabolic Bone Disease, a World Health Organization (WHO) Collaborating Center. Electronically signed by: Alfred De Santiago MD 12/29/2024 01:53 PM EDT
--- OUTSIDE RECORDS SUMMARY | 2024-12-29 13:34 | XMS_ITS | Clinical Summary ---
Author Organization 175 [facility] Address [address] [place] [address] Phone Care Team Providers Care Interior Decorator Painting Name Role Phone Physician, Pcp Unknown Primary Care Provider Shirley vailable Allergies No known active allergies Medications No known medications Encounters Date Type Department Care Team Description 11/05/2024 3:00 PM EDT Office Visit Orthopedic Surgery [facility] [address] [facility] [address] [place] [address] Maribell Elliott PA Mucous cyst [...] Procedure Name Priority Date/Time Associated Diagnosis Comments [place] ARTHROCENTESIS/ASPI RATION/INJECTION SMALL JOINT/BURSA WO U/S GUIDANCE Routine 11/05/2024 3:00 PM EDT Mucous cyst of digit of hand from Last 3 Months Results * [place] ARTHROCENTESIS/ASPIRATION/INJECTION SMALL JOINT/BURSA WO U/S GUIDANCE (11/05/2024 [...] Months Insurance [place] - [place] Care Teams Interior Decorator Painting Relationship Specialty Start Date End Date Physician, Pcp Unknown PCP - General 11/01/24
== END 2024-12-29 13:19 | disposition home or self-care (01) ==
LOC: HO.MAMMO 13:18
PROVIDERS: PCP Internal Medicine; Visit Provider Internal Medicine
DX: Z13.820 Encounter for screening for osteoporosis (principal); Z78.0 Asymptomatic menopausal state
CPT/HCPCS: 77080

== ENCOUNTER → 2024-12-29 13:30 | Outpatient (BNV) | payer MEDICAID, SELFPAY | PROVIDERS: PCP Internal Medicine; Visit Provider Radiology Diagnostic Radiology | DX: E28.39 Other primary ovarian failure (principal) | CPT/HCPCS: 77080 ==

== ENCOUNTER 2024-12-31 23:12 | Emergency (ER) | payer MEDICAID, SELFPAY ==
--- NOTE | 2024-12-31 | ECG_ITS ---
Test Reason : EPIGASTRIC PAIN Blood Pressure : */* mmHG Vent. Rate : 70 BPM Atrial Rate : 70 BPM P-R Int : 164 ms QRS Dur : 116 ms QT Int : 390 ms P-R-T Axes : * -20 -14 degrees QTcB Int : 421 ms Artifact in tracing Normal sinus rhythm probably normal, but due to artifact, cannot assess clearly When compared with ECG of 20-Oct-2024 13:13, No significant changes seen Referred By: Generic ED Physician Electronically Signed By: LIANET LAYTON
[2024-12-31 23:25] VITALS: BP 122/71; PULSE 72; RESP 20; TEMP 36.4; O2SAT 99; BMI 25.7
[2024-12-31 23:44] LABS: MANUAL DIFF FLAG NO
[2024-12-31 23:48] LABS: Basophils Percent Auto 0.6 % (0-2); Eosinophils Absolute Auto 0.1 X10*3/uL (0.0-0.4); Eosinophils Percent Auto 1.2 % (0-4); Hematocrit 36.5 % (37.0-47.0); Hemoglobin 12.3 g/dl (12.0-16.0); Imm Gran Abs Auto 0.02 X10*3/uL (0.00-0.03); Imm Gran Pct Auto 0.3 % (0.0-0.4); Lymphocytes Absolute Auto 1.8 X10*3/uL (1.2-4.9); Lymphocytes Percent Auto 26.1 % (20-40); Mean Corpuscular HGB Conc 33.7 g/dl (31.0-35.0); Mean Corpuscular Hemoglobin 29.9 pg (27.0-33.0); Mean Corpuscular Volume 88.6 fL (80.0-98.0); Mean Platelet Volume 10.9 fL (9.4-12.3); Monocytes Absolute Auto 0.3 X10*3/uL (0.1-1.2); Monocytes Percent Auto 4.8 % (2-11); Neutrophils Absolute Auto 4.6 x10*3/uL (2.0-8.3); Platelet Count 201 X10*3/uL (160-400); Red Blood Count 4.12 X10*6/uL (4.20-5.50); Red Cell Distribution Width 13.6 % (11.0-16.0); White Blood Count 6.9 X10*3/uL (4.8-10.8)
[2025-01-01 00:03] LABS: Alanine Aminotransferase 78 U/L (0-31); Alkaline Phosphatase 117 U/L (39-117); Anion Gap 14 (12-20); Aspartate Amino Transferase 157 U/L (5-31); Bilirubin Direct 0.3 mg/dL (0.0-0.5); Blood Urea Nitrogen 25 mg/dL (9-16); Calcium 8.9 mg/dL (8.4-10.2); Carbon Dioxide 21 mmol/L (22-29); Chloride 106 mmol/L (96-108); Creatinine Clr Calc Pharmacy 45.1; Estimated Glomerular Filt Rate 53; Glucose Random 154 mg/dL (60-115); Lipase 43 U/L (8-78); Potassium 3.6 mmol/L (3.3-5.1); Sodium 137 mmol/L (135-145); Total Protein 6.8 g/dL (6.5-8.0)
[2025-01-01 00:05] LABS: Troponin-I High Sensitivity 4.1 ng/L (<3.5-17.0)
[2025-01-01 00:16] LABS: Bilirubin Total 0.6 mg/dL (0.0-1.0)
--- OUTSIDE RECORDS SUMMARY | 2025-01-01 04:46 | XMS_ITS | Clinical Summary ---
Author Organization 175 [facility] Address [address] [place] [address] Phone Care Team Providers Care Bulldozer Press Operator Name Role Phone Physician, Pcp Unknown Primary Care Provider Shirley vailable Allergies No known active allergies Medications No known medications Encounters Date Type Department Care Team Description 11/05/2024 3:00 PM EDT Office Visit Orthopedic Surgery [facility] [address] [facility] [address] [place] [address] Maribell Elliott PA Mucous cyst [...] Procedure Name Priority Date/Time Associated Diagnosis Comments [place] ARTHROCENTESIS/ASPI RATION/INJECTION SMALL JOINT/BURSA WO U/S GUIDANCE Routine 11/05/2024 3:00 PM EDT Mucous cyst of digit of hand from Last 3 Months Results * [place] ARTHROCENTESIS/ASPIRATION/INJECTION SMALL JOINT/BURSA WO U/S GUIDANCE (11/05/2024 [...] Months Insurance [place]ICA[place] - [place] Care Teams Bulldozer Press Operator Relationship Specialty Start Date End Date Physician, Pcp Unknown PCP - General 11/01/24
== END 2025-01-01 04:45 | disposition left against medical advice (07) ==
PROVIDERS: Emergency Provider Emergency Medicine; PCP Internal Medicine
DX: R10.13 Epigastric pain (principal); Z53.21 Procedure and treatment not carried out due to patient leaving prior to being seen by health care provider
CPT/HCPCS: 36415; 80048; 80076; 83690; 84484; 85025; 93005; 99281; 99283

== ENCOUNTER → 2024-12-31 23:30 | Outpatient (BNV) | payer MEDICAID, SELFPAY | PROVIDERS: Emergency Provider Emergency Medicine; PCP Internal Medicine; Visit Provider Internal Medicine | DX: R10.13 Epigastric pain (principal) | CPT/HCPCS: 93010 ==

== ENCOUNTER 2025-01-17 13:52 | Outpatient (AMB) | payer MEDICAID, SELFPAY ==
--- NOTE | 2025-01-17 13:55 | A.OFFVIS_ITS ---
VS Expanded 01/17/25 14:01 BP 133/71 Blood Pressure Location Rt brachial Blood Pressure Position Sitting Pulse 78 Pulse Source Pulse Oximeter Temp 97.0 F Temperature Source Temporal Artery Scan Pulse Oximetry 96 Oxygen Delivery Method Room Air Height 5 ft 2 in Weight 144 lb 6.4 oz BMI 26.4 Body Fat % 28.1 Body Fat Mass 40.6 Fat Free Mass 103.6 Visceral Fat Rating 8.0 Body Water % 50.5 Body Water Mass 72.8 Muscle Mass/Score 98.4 Basal Metabolic Rate/Score 1,368 Intake Visit Reasons: OV Hernia Repair 10/20/24 Wired Sweatband Cutter Required: Yes Wired Sweatband Cutter Services: Wired Sweatband Cutter Present (hospital [facility]mi) Wired Sweatband Cutter Name: hospital [facility]mi Allergies No Known Allergies (No Known Allergies*) Allergy (Verified 01/17/25 14:02) Medication List - Last Reconciled 01/17/25 by MIKEY Díaz docusate sodium (Colace) 100 mg PO DAILY levothyroxine 25 mcg PO DAILY@0600 pantoprazole 40 mg PO DAILY sucralfate 10 mL PO BID HPI Comments Details: Patient is a pleasant 74-year-old female who returns to the office today in follow-up. She underwent hiatal hernia repair on 10/20/2024. Weight today is 144.4 lb BMI is 24.8. no complaints of reflux at all. She states that she would like to incorporate a wider variety of food in her meal plan. She also requests an in-person appointment with Dr. Hamm to discuss her meal plan as she feels as though sometimes she is not getting the information correctly as her daughter typically is the [address] Hamm. Tolerating meal plan as directed by Dr. Hamm including: celebrate rebuild shake, 1 scoop in 8 oz of low-fat milk at 8-10, 2-4, 7-9 Dinner with 5 forks protein and 5 forks veg. Drinking about 40 oz water Exercise plan: walking outside or treadmill daily. [facility] Medical History (Updated 12/01/24 @ 14:53 by Torsten Garza MD) Encounter for general adult medical examination with abnormal findings Epigastric abdominal pain Chest pain Knee pain Diaphragmatic hernia Pre-op examination [place] [facility] Skin cancer screening Epigastric discomfort Obesity due to excess calories Abdominal discomfort Difficulty hearing Abnormal abdominal ultrasound Hypothyroidism Fatty liver Dyspepsia Surgical History Hx of hernia repair H/O eye surgery H/O colonoscopy H/O esophagogastroduodenoscopy History of laryngoscopy Hx of cholecystectomy Family History Father Myocardial infarction Mother Emphysema, unspecified Son No problems noted. Daughter No problems noted. Social History Household Members: Children Housing: House Are you a primary home care chaplain to a significant other at home: No Do you presently have visiting nurse or other home services: No Patient Tobacco Use Status: Former Tobacco user Tobacco use type: Cigarette e-Cigarette/Vaping Use: Never Used Second Hand Smoke Exposure: No service: No Current occupational status: retired Cognitive needs: No Hearing needs: No Vision needs: Yes Physical Exam Const General: healthy appearing and no acute distress Resp Effort & Inspection: normal respiratory effort Auscultation: clear to auscultation bilaterally Cardio Rate: regular rate Rhythm: regular rhythm GI Auscultation: normal bowel sounds Extrem General: Yes normal to inspection Assessment & Plan Assessment & Plan (1) Status post repair of paraesophageal diaphragmatic hernia: Code(s): Z98.890 - Other specified postprocedural states; Z87.19 - Personal history of other diseases of the digestive system Category: Surgical Plan: Patient was instructed to continue to communicate with Dr. Hamm. She was told that her meal plan will be changed on January 25, she will continue to commun icate with him. She has requested an appointment with him which we will attempt to schedule. Overall, she is doing very well without any further complaints of nausea or reflux. She did have 1 episode of upper abdominal pain after eating chicken wings out at a restaurant
[2025-01-17 14:01] VITALS: BP 133/71; PULSE 78; TEMP 36.1; O2SAT 96; BMI 26.4
--- OUTSIDE RECORDS SUMMARY | 2025-01-17 15:22 | XMS_ITS | Clinical Summary ---
Author Organization 175 [facility] Address [address] [place] [address] Phone Care Team Providers Care Wire Frame Lampshade Maker Name Role Phone Physician, Pcp Unknown Primary Care Provider Shirley vailable Allergies No known active allergies Medications No known medications Encounters Date Type Department Care Team Description 11/05/2024 3:00 PM EDT Office Visit Orthopedic Surgery [facility] [address] [facility] [address] [place] [address] Maribell Elliott PA Mucous cyst [...] - PCV) 09/10/2020 09/10/2019, 03/14/2018 COVID-19 Vaccine (5 - season) 2024 07/15/2022, 07/30/2021, 10/26/2020, Additional [...] Procedure Name Priority Date/Time Associated Diagnosis Comments [place] ARTHROCENTESIS/ASPI RATION/INJECTION SMALL JOINT/BURSA WO U/S GUIDANCE Routine 11/05/2024 3:00 PM EDT Mucous cyst of digit of hand from Last 3 Months Results * MA ARTHROCENTESIS/ASPIRATION/INJECTION SMALL JOINT/BURSA WO U/S GUIDANCE (11/05/2024 3:00 PM EDT) Narrative Mariebll Elliott PA - 11/05/2024 3:00 PM EDT MIKEY Castrejno 11/05/2024 3:57 PM S Inj/Asp: R thumb IP Indications: pain Details: 18 G needle, dorsal approach Area was cleansed with Betadine and anesthetized with ethyl chloride. 18-gauge needle inserted at the apex of mucous cyst at right thumb IP joint and clear gelatinous fluid was expressed with reduction in size of the cyst and Band-Aid placed. us Maribell JENSEN IN CLINIC/BEDSIDE ORDERABLES Final Result from Last 3 Months Insurance MEDICA[place] - [place] Care Teams Wire Frame Lampshade Maker Relationship Specialty Start Date End Date Physician, Pcp Unknown PCP - General 11/01/24
== END 2025-01-17 14:35 | disposition home or self-care (01) ==
LOC: HO.HBS 13:53
PROVIDERS: PCP Internal Medicine; Visit Provider Physician Assistant Surgical
DX: Z98.890 Other specified postprocedural states (principal); Z87.19 Personal history of other diseases of the digestive system
CPT/HCPCS: 99024

== ENCOUNTER → 2025-01-17 13:52 | Outpatient (BNVA) | payer MEDICAID, SELFPAY | PROVIDERS: PCP Internal Medicine; Visit Provider Physician Assistant Surgical | DX: Z87.19 Personal history of other diseases of the digestive system (principal); Z98.890 Other specified postprocedural states | CPT/HCPCS: 99212 ==

== ENCOUNTER 2025-01-27 10:35 | Outpatient (REF) | payer MEDICAID, SELFPAY | END 2025-01-27 10:36 | disposition home or self-care (01) | LOC: HO.HAP 10:35 | PROVIDERS: Visit Provider Internal Medicine | DX: Z46.1 Encounter for fitting and adjustment of hearing aid (principal); H90.3 Sensorineural hearing loss, bilateral | CPT/HCPCS: V5266 ==

== ENCOUNTER 2025-02-02 11:03 | Outpatient (AMB) | payer MEDICAID, SELFPAY ==
[2025-02-02 11:16] VITALS: BP 118/72; PULSE 71; TEMP 36.3; O2SAT 97; BMI 26.9
--- NOTE | 2025-02-02 11:16 | A.OFFPC_ITS ---
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 Required: No Is last menstrual period known: No Post menopausal: Yes Patient : No Allergies No Known Allergies (No Known Allergies*) Allergy (Verified 02/02/25 11:24) Medication List - Last Reconciled 02/02/25 by Torsten Garza MD docusate sodium (Colace) 100 mg PO DAILY levothyroxine 25 mcg PO DAILY@0600 Tobacco use date assessed: 02/02/25 Fall risk assessment: No Falls in past year Last assessed Fall Risk: 02/02/25 Dental Screening Dental Screen Date: 02/02/25 Did you have a dental visit in the last 12 months?: No Did you have a dental problem in the last 6 months where you did not have access to dental care?: No Was dental information given to patient?: Patient has dentist HPI Follow up HPI Details History - The patient is a 74-year-old female pr esenting with a follow-up after hernia surgery, which was performed on October [address] Slade . The patient reported experiencing pain post-surgery, but this has since resolved. - She inquired about her nutritional int judi post-surgery, specifically regarding her current diet of protein shakes and how to progress with a more solid food diet. - The patient expressed concern about he r routine adjustments while planning potential travel to [place] and was advised to gradually increase solid food intake. - She previously had high protein shakes three times a day, currently looking to reduce this in favor of solid foods. Note reviewed by Jake mathew, dated end of December 3 times a day protein shakes, 5 fork so protein and 5 folks of vegetable was recommended along with 40 oz of water Patient is unable to get in touch with the surgeon, she is requesting an appointment again with Jake mathew Message sent over as per patient's request Meanwhile she can try to progress her solid food gradually and may cut down to protein shake twice a day rather than 3 times a day Medical History: - Constipation - Hyperlipidemia - Hypothyroidism Surgical History: - Hernia surgery on October 20, 2022 Medications: - Levothyroxine 25 mcg for hypothyroidis m Social History: - The patient is considering travel to [facility]. - Expressed feeling tired and mildly jamarcus n due to recent family events involving her brother. Diagnostic Results: - Labs: Hemoglobin of 12.3 (measured in December), elevated liver enzymes (AST 157, ALD 78, alkaline phosphatase 117), GFR 53 indicating slightly reduced kidney function. Problem List - Constipation stable - Hyperlipidemia diet-controlled - Hypothyroidism continue levothyroxine 25 mcg - Post-operative status following hernia surgery - progress diet gradually meet with a nu tritionist again Patient Instructions - Gradually increase the intake of solid foods, starting with easily digestible options like yogurt, boiled rice, and boiled pasta. - Decrease the number of protein shakes gradually, reducing from three to two shakes per day while increasing solid food intake. - Contact pharmacy for Levothyroxine ref ill prescriptions as needed. Review of Systems - General: No fever no chills - Neurological: No headaches no dizziness - Ear nose throat: No sore throat no hearing difficulty no ear pain - Cardiovascular: No syncope, no chest pain, no palpitations - Gastrointestinal: No nausea vomiting or diarrhea - Endocrine: No polyuria polydipsia no heat intolerance - Genitourinary: No dysuria , no blood in urine Physical Exam - General: No acute distress - HEENT: No acute findings - Neck: Supple - Respiratory system: Able to talk in f ull sentences, no audible wheeze - Cardiovascular: S1-S2 regular in rate and rhythm - Gastrointestinal: No pain - Extremities: No new findings - PATIENT FLOW COORDINATOR: Alert awake oriented x3 motor se nsory intact - Skin: Normal turgor [facility] Medical History Encounter for general adult medical examination with abnormal findings Epigastric abdominal pain Chest pain Knee pain Diaphragmatic hernia Pre-op examination Change in mole Skin cancer screening Epigastric discomfort Obesity due to excess calories Abdominal discomfort Difficulty hearing Abnormal abdominal ultrasound Hypothyroidism Fatty liver Dyspepsia Surgical History Hx of hernia repair H/O eye surgery H/O colonoscopy H/O esophagogastroduodenoscopy History of laryngoscopy Hx of cholecystectomy Family History Father Myocardial infarction Mother Emphysema, unspecified Son No problems noted. Daughter No problems noted. Social History Household Members: Children Housing: House Are you a primary wound care technician to a significant other at home: No Do you presently have visiting nurse or other home services: No Patient Tobacco Use Status: Former Tobacco user Tobacco use type: Cigarette e-Cigarette/Vaping Use: Never Used Second Hand Smoke Exposure: No Patient : No service: No Current occupational status: retired Cognitive needs: No Hearing needs: No Vision needs: Yes Questionnaire PHQ-9 Over the last 2 weeks, how often have you been bothered by any of the following problems? 1. Little interest or pleasure in doing things: not at all 2. Feeling down, depressed, or hopeless: not at all 3. Trouble falling or staying asleep, or sleeping too much: not at all 4. Feeling tired or having little energy: not at all 5. Poor appetite or overeating: not at all 6. Feeling bad about yourself - or that you are a failure or have let yourself or your family down: not at all 7. Trouble concentrating on things, such as reading the newspaper or watching television: not at all 8. Moving or speaking so slowly that other people could have noticed. Or the opposite - being so fidgety or restless that you have been moving around a lot more than usual: not at all 9. Thoughts that you would be better off or of hurting yourself in some way: not at all Total score: 0 Depression Screening Interpretation: Negative Depression Screening Done: Yes 24611 - PHQ-9 Billing: Yes Source: Developed by Drs. Alfred Goldberg, Michelle Garcia, Noe Nowak and colleagues, with an educational perfecto from [employer]. Thrive Questionnaire Date Thrive assessed: 02/02/25 I am a: Patient What is your living situation today?: I have a steady place to live Within the past 12 months, did the food you bought not last and you didn't have the money to get more?: Sometimes True Within the past 12 months, did you worry whether your food would run out before you got money to buy more?: Sometimes True Do you have trouble paying for medicines?: No Do you have trouble getting transportation to medical appointments?: No Do you have trouble paying your heating and electricity bill?: No Do you have trouble taking care of your child, family member or friend?: No Do you have trouble with day-to-day activities such as bathing, preparing meals, shopping, managing finances, etc.?: No Are you currently unemployed and looking for a job?: No Are you interested in more education?: No Please select the resources that you would like help with: Food Currently or been in a relationship where the following occur: No concerns reported THRIVE Score: 2 AUDIT C Alcohol Use Questionnaire (AUDIT-C) 1. How often do you have a drink containing alcohol?: Never 2. How many drinks containing alcohol do you have on a typical day when you are drinking?: 1 or 2 3. How often do you have six or more drinks on one occasion?: Less than monthly Total Score: 1 Score Reviewed/Action Taken: Yes KEYSHA-7 AMB Questionnaire KEYSHA-7 Date KEYSHA - 7 assessed: 12/01/24 Source: Developed by Drs. Alfred Goldberg, Michelle Garcia, Noe Nowak and colleagues, with an educational perfecto from [employer]. Physical exam (Primary Care) Vital Signs: Last Vital Signs Temp 97.3 F 02/02/25 11:16 Pulse 71 02/02/25 11:16 BP 118/72 02/02/25 11:16 Pulse Ox 97 02/02/25 11:16 Oxygen Delivery Method Room Air 02/02/25 11:16 BMI result Body Mass Index 26.9 Tobacco/Smoking Status: Tobacco use Status Tobacco use date assessed 02/02/25 02/02/25 11:23 Patient Tobacco Use Status Former Tobacco user 02/02/25 11:23 Tobacco use type Cigarette 02/02/25 11:23 e-Cigarette/Vaping Use Never Used 02/02/25 11:23 PHQ-9: PHQ-9 Score PHQ-9: Total score 0 02/02/25 11:40 Depression Screening Interpretation: Negative Thrive Assessment: Date of Thrive Assessment Date Thrive assessed 02/02/25 02/02/25 11:23 Currently or been in a relationship where the following occur: No concerns reported Coding Level of Care Code Est Pt Level 3 (34198) Diagnoses History of repair of hiatal hernia Z98.890; Z87.19 Dietary restriction Z71.3 Feeling sad R45.89 Hypothyroidism, unspecified type E03.9 Hypothyroidism type: unspecified Additional Codes PHQ-9 - 92582 - PHQ-9 Billing: Yes ([id number]) Assessment & Plan Assessment & Plan (1) History of repair of hiatal hernia: Code(s): Z98.890 - Other specified postprocedural states; Z87.19 - Personal history of other diseases of the digestive system Category: Surgical (2) Dietary restriction: Code(s): Z71.3 - Dietary counseling and surveillance Category: Medical (3) Feeling sad: Code(s): R45.89 - Other symptoms and signs involving emotional state Category: Medical (4) Hypothyroidism: Code(s): E03.9 - Hypothyroidism, unspecified Category: Medical Qualifiers: Hypothyroidism type: unspecified Qualified Code(s): E03.9 - Hypothyroidism, unspecified Plan History - The patient is a 74-year-old female presenting with a follow-up after hernia surgery, which was performed on October [address] Slade . The patient reported experiencing pain post-surgery, but this has since resolved. - She inquired about her nutritional intake post-surgery, specifically regarding her current diet of protein shakes and how to progress with a more solid food diet. - The patient expressed concern about her routine adjustments while planning potential travel to [place] and was advised to gradually increase solid food intake. - She previously had high protein shakes three times a day, currently looking to reduce this in favor of solid foods. Note reviewed by Jake mathew, dated end of December 3 times a day protein shakes, 5 fork so protein and 5 folks of vegetable was recommended along with 40 oz of water Patient is unable to get in touch with the surgeon, she is requesting an appointment again with Jake mathew Message sent over as per patient's request Meanwhile she can try to progress her solid food gradually and may cut down to protein shake twice a day rather than 3 times a day Medical History: - Constipation - Hyperlipidemia - Hypothyroidism Surgical History: - Hernia surgery on October 20, 2022 Medications: - Levothyroxine 25 mcg for hypothyroidism Social History: - The patient is considering travel to [place]. - Expressed feeling tired and mildly down due to recent family events involving her brother. Diagnostic Results: - Labs: Hemoglobin of 12.3 (measured in December), elevated liver enzymes (AST 157, ALD 78, alkaline phosphatase 117), GFR 53 indicating slightly reduced kidney function. Problem List - Constipation stable - Hyperlipidemia diet-controlled - Hypothyroidism continue levothyroxine 25 mcg - Post-operative status following hernia surgery - progress diet gradually meet with a work distributor again Patient Instructions - Gradually increase the intake of solid foods, starting with easily digestible options like yogurt, boiled rice, and boiled pasta. - Decrease the number of protein shakes gradually, reducing from three to two shakes per day while increasing solid food intake. - Contact pharmacy for Levothyroxine refill prescriptions as needed. Medications: Refilled levothyroxine 25 mcg PO DAILY@0600 90 tabs 3RF
--- OUTSIDE RECORDS SUMMARY | 2025-02-02 12:15 | XMS_ITS | Clinical Summary ---
Author Organization 175 [facility] Address [address] [place] [address] Phone Care Team Providers Care Tire Shop Mechanic Name Role Phone Physician, Pcp Unknown Primary Care Provider Shirley vailable Allergies No known active allergies Medications No known medications Encounters Date Type Department Care Team Description 11/05/2024 3:00 PM EDT Office Visit Orthopedic Surgery [facility] [address] [facility] [address] [place] [address] Maribell Elliott PA Mucous cyst [...] 11/01/2024 Social Influencers of Health Screening 11/01/2024 Influenza Vaccine (#1) 2025 4, 05/16/2023, 04/23/2022, Additional history exists DTaP,Tdap,and Td Vaccines (3 - Td or Tdap) 09/10/2029 09/10/2019, 03/23/2018 HIB Vaccines Aged Out No longer eligi [...] - 11/05/2024 3:00 PM EDT MIKEY Castrejon 11/05/2024 3:57 PM S Inj/Asp: R thumb [...] Months Insurance [place] - [place] Care Teams Tire Shop Mechanic Relationship Specialty Start Date End Date Physician, Pcp Unknown PCP - General 11/01/24
== END 2025-02-02 12:22 | disposition home or self-care (01) ==
LOC: HO.HMCC 11:04
PROVIDERS: Visit Provider Internal Medicine
DX: Z98.890 Other specified postprocedural states (principal); Z87.19 Personal history of other diseases of the digestive system; Z71.3 Dietary counseling and surveillance; R45.89 Other symptoms and signs involving emotional state; E03.9 Hypothyroidism, unspecified

== ENCOUNTER → 2025-02-02 11:03 | Outpatient (BNVA) | payer MEDICAID, SELFPAY | PROVIDERS: Visit Provider Internal Medicine | DX: K59.00 Constipation, unspecified (principal); E78.5 Hyperlipidemia, unspecified; E03.9 Hypothyroidism, unspecified; R45.89 Other symptoms and signs involving emotional state; Z87.19 Personal history of other diseases of the digestive system; Z79.899 Other long term (current) drug therapy; Z98.890 Other specified postprocedural states; Z71.3 Dietary counseling and surveillance; Z13.31 Encounter for screening for depression | CPT/HCPCS: 96127; 99212 ==

== ENCOUNTER 2025-04-04 15:07 | Outpatient (REF) | payer MEDICAID, SELFPAY ==
--- OUTSIDE RECORDS SUMMARY | 2025-04-04 18:18 | XMS_ITS | Clinical Summary ---
Author Organization 175 [facility] Address [address] [place] [address] Phone Care Team Providers Care Facilities Custodian Name Role Phone Physician, Pcp Unknown Primary Care Provider Shirley vailable Allergies No known active allergies Medications No known medications Social History Tobacco Use Types Packs/Day Years [...] of 2 - PCV) 09/10/2020 09/10/2019, 03/14/2018 Depression Screening 07/28/2024 RSV Immunization Adult Patients (1 - 1-dose 75+ series) 2024 Colorectal Cancer Screening: Colonoscopy 11/01/2024 Falls Risk Assessment 11/01/2024 Hepatitis C Screening 11/01/2024 Osteoporosis Screening (Bone Density Screening) 11/01/2024 Social Influencers of Health Screening 11/01/2024 COVID-19 Vaccine ( season) 2025 07/15/2022, 07/30/2021, 10/26/2020, Additional history exists Influenza Vaccine (#1) 2025 4, 05/16/2023, 04/23/2022, [...] on patient's age to complete this topic Insurance MEDICA[place] - [place] Care Teams Facilities Custodian Relationship Specialty Start Date End Date Physician, Pcp Unknown PCP - General 11/01/24
== END 2025-04-04 15:08 | disposition home or self-care (01) ==
LOC: HO.HAP 15:07
PROVIDERS: Visit Provider Internal Medicine
DX: Z13.89 Encounter for screening for other disorder (principal)

== ENCOUNTER 2025-04-05 16:06 | Outpatient (REF) | payer MEDICAID, SELFPAY ==
--- OUTSIDE RECORDS SUMMARY | 2025-04-05 18:10 | XMS_ITS | Clinical Summary ---
Author Organization 175 [facility] Address [address] [place] [address] Phone Care Team Providers Care Legal Support Manager Name Role Phone Physician, Pcp Unknown Primary [...] topic Insurance [place] - [place] Care Teams Legal Support Manager Relationship Specialty Start Date End Date Physician, Pcp Unknown PCP - General 11/01/24
== END 2025-04-05 16:07 | disposition home or self-care (01) ==
LOC: HO.HAP 16:06
PROVIDERS: Visit Provider Internal Medicine
DX: Z13.89 Encounter for screening for other disorder (principal)

== ENCOUNTER 2025-04-29 14:27 | Outpatient (REF) | payer MEDICAID, SELFPAY ==
--- OUTSIDE RECORDS SUMMARY | 2025-04-29 14:29 | XMS_ITS | Clinical Summary ---
Author Organization [facility] Address [address] [place] [address] Phone Care Team Providers Care [employer] Optician Name Role Phone Physician, Pcp Unknown Primary [...] Health Maintenance Due Date Last Done Comments Colorectal Cancer Screening: Colonoscopy 1950 Zoster Vaccines (2 of 2) 06/08/2018 04/13/2018 Pneumococcal Vaccine: 50+ Years (2 of 2 - PCV) 09/10/2020 09/10/2019, 03/14/2018 Depression Screening 07/28/2024 RSV Immunization Adult Patients (1 - 1-dose 75+ series) 2024 Falls Risk Assessment 11/01/2024 Hepatitis C Screening 11/01/2024 Osteoporosis Screening (Bone Density Screening) 11/01/2024 Social Influencers of Health Screening 11/01/2024 COVID-19 Vaccine ( season) 2025 07/15/2022, 07/30/2021, 10/26/2020, Additional history exists Influenza Vaccine (#1) 2025 , 05/16/2023, 04/23/2022, Additional history exists DTaP,Tdap,and Td [...] topic Insurance MEDICAID - [place] Care Teams 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
== END 2025-04-29 14:28 | disposition home or self-care (01) ==
LOC: HO.HAP 14:27
PROVIDERS: PCP Internal Medicine; Visit Provider Internal Medicine
DX: Z46.1 Encounter for fitting and adjustment of hearing aid (principal); H90.3 Sensorineural hearing loss, bilateral
CPT/HCPCS: V5266